=== PATIENT | female | born 1975 | race Caucasian/White ===

== ENCOUNTER 2017-08-16 12:42 | Emergency (ER) | payer OTHER, MEDICAID, SELFPAY | END 2017-08-16 15:46 | disposition home or self-care (01) | DX: J44.1 Chronic obstructive pulmonary disease with (acute) exacerbation (principal) | CPT/HCPCS: 71020; 71046; 80053; 84484; 85025; 93005; 93010; 94640; 99058; 99285 ==

== ENCOUNTER 2017-09-24 14:06 | Emergency (ER) | payer OTHER, MEDICAID, SELFPAY ==
[2017-09-24 14:24] VITALS: BP 137/87; PULSE 84; RESP 17; TEMP 36.5; O2SAT 96; BMI 23.3
--- NOTE | 2017-09-24 14:28 | DI.RAD.S_ITS ---
PROCEDURE: XR CHEST 1V INDICATIONS: chest pain TECHNIQUE: One view of the chest was acquired. COMPARISON: [facility], , CHEST 2 VIEW, 08/16/2017, 12:54. FINDINGS: Surgical changes and devices: None. Lungs and pleura: No pleural effusions or pneumothorax. Lungs are likely clear but body habitus is large and the inspiratory volume is mildly reduced. There is mild stranding across the left lung base behind the heart, somewhat poorly visualized. Mediastinum: Mediastinal contours appear normal. Heart size is normal. Bones and chest wall: No suspicious bony lesions. Overlying soft tissues appear unremarkable. IMPRESSION: Mild stranding across the heart but quality visualization is somewhat limited. Obtaining a lateral view of the chest would be helpful to determine whether mild or early pneumonia might be superimposed. Dictated by: Billy Dye M.D. on 09/24/2017 at 15:16 Approved by: Billy Dye M.D. on 09/24/2017 at 15:17
--- NOTE | 2017-09-24 14:40 | ED.SOB ---
HPI - SOB/Dyspnea General Chief Complaint: Shortness of Breath/Dyspnea Stated Complaint: SHORT OF BREATH,HANDS/FEET GOING NUMB AND PURPLE Time Seen by Provider: 09/24/17 14:40 Source: patient Mode of arrival: ambulatory Limitations: no limitations History of Present Illness Patient presents to the emergency department with a chief complaint of sharp and stabbing anterior chest pain with radiation to her back for the past few days. She states it is worse when she presses, takes a deep breath or moves. She has a chronic cough and is unaware what she was doing when her symptoms started. She denies recent travel MD Complaint: shortness of breath, cough and chest pain Onset (ago): day(s) Context: recent illness Severity: mild Consistency/Duration: constant Relieving factors: nothing Exacerbating factors: movement, coughing and inspiration Known history of: COPD Associated symptoms: chest pain, pain with inspiration and cough Treatment prior to arrival: none Related Data Home Medications Medication Instructions Recorded Confirmed albuterol sulfate [ProAir HFA] 2 puff INHALATION Q4-6H PRN 09/24/17 09/24/17 alprazolam [Xanax] 1 mg PO TID PRN 09/24/17 09/24/17 aripiprazole [Abilify] 20 mg PO DAILY 09/24/17 09/24/17 [id number]-[id number] 1 tab PO TID PRN 09/24/17 09/24/17 mometasone-formoterol [Dulera] 2 puff INHALATION BID 09/24/17 09/24/17 tiotropium bromide [Spiriva with 1 cap INHALATION DAILY 09/24/17 09/24/17 HandiHaler] Allergies Allergy/AdvReac Type Severity Reaction Status Date / Time Penicillins [PENICILLINS] Allergy Unknown Verified 09/24/17 14:24 Review of Systems Review of Systems All systems reviewed & are unremarkable except as noted in HPI and below Constitutional Denies chills, Denies fever(s), Denies lethargy and Denies weakness Eyes Denies change in vision, Denies eye discharge, Denies irritation and Denies loss of vision ENT Ears, Nose, Mouth, and Throat: Denies change in voice, Denies neck pain and Denies sore throat Cardiovascular Reports chest pain, Denies irregular heart rhythm, Denies lightheadedness, Denies palpitations, Reports dyspnea, Denies dyspnea on exertion and Denies orthopnea Respiratory Denies cough, Reports dyspnea, Denies dyspnea on exertion and Denies wheezing Gastrointestinal Gastrointestinal: Denies abdominal pain, Denies change in bowel habits, Denies diarrhea, Denies nausea and Denies vomiting Genitourinary Denies hematuria, Denies flank pain, Denies urinary incontinence and Denies urinary urgency Musculoskeletal Denies neck pain Integumentary/Breasts Denies pruritus, Denies erythema, Denies rash and Denies wounds Neurologic Denies confusion, Denies loss of vision and Denies weakness Psychiatric Denies anxiety, Denies confusion, Denies depression, Denies homicidal ideation and Denies suicidal ideation Endocrine Denies palpitations Hematologic/Lymphatic Denies easy bruising Allergic/Immunologic Denies wheezing PFSH Medical History Anxiety (Acute) COPD (chronic obstructive pulmonary disease) (Acute) Depression (Acute) Migraine (Acute) Sleep apnea (Acute) Social History Smoking Status: Current every day smoker Exam Narrative Exam Narrative: Pleasant, anxious, 42-year-old female in mild distress Initial Vital Signs Initial Vital Signs: Vital Signs Temperature 97.7 F 09/24/17 14:24 Pulse Rate 84 09/24/17 14:24 Respiratory Rate 17 09/24/17 14:24 Blood Pressure 137/87 H 09/24/17 14:24 Pulse Oximetry 96 09/24/17 14:24 Const General: cooperative and well developed Nutritional Appearance: well nourished Orientation: alert, awake, oriented x3 and not confused HENME Head: normocephalic and atraumatic Ears: external ears normal and TM's normal bilaterally Nose: external nose normal and No nasal discharge Face and sinus: sinuses nontender, face symmetric, no sinus tenderness and No dry mucous membranes Mouth: oral mucosae normal and moist mucous membranes Teeth and gingiva: dentition normal Throat: tonsils normal and uvula midline Neck Neck: normal visual inspection, trachea midline, No lymphadenopathy, No midline deformity and No JVD Lymphatic: No lymphedema Chest Chest: abnormal inspection of the chest, localized rib tenderness with anteroposterior compression and tenderness Resp Effort & Inspection: normal respiratory effort, able to speak in complete sentences, no respiratory distress and no use of accessory muscles Auscultation: clear to auscultation bilaterally, no rales, no rhonchi and no wheezes Cardio Rate: regular rate Rhythm: regular rhythm Heart Sounds: no click, no gallops, no murmurs and no rubs Pulses: normal peripheral pulses Back/Spine/Pelvis Back: No CVA tenderness Cervical Spine: cervical ROM normal and No pain with cervical ROM Thoracic/Lumbar Spine: thoracic and lumbar spine normal to inspection Skin General: no rashes or lesions noted, No jaundice and No petechiae Course Orders Ordered: ED Orders 09/24/17 14:28 XR chest 1V Stat EKG-12 Lead Stat 09/24/17 14:33 Complete Blood Count AUTO DIFF Stat Comprehensive Metabolic Panel Stat Lipase Stat Partial Thromboplastin Time Stat Prothrombin Time INR Stat Troponin with CK Cardiac Panel Stat 09/24/17 16:18 CT angio chest PE protocol Stat Discontinued Medications Albuterol/Ipratropium (Duoneb) 3 ml INH NOW ONE Stop: 09/24/17 15:38 Last Admin: 09/24/17 15:39 Dose: 3 ml Vital Signs - 8 hr 09/24/17 14:24 09/24/17 15:33 09/24/17 16:14 Temperature 97.7 F Pulse Rate 84 78 80 Respiratory Rate 17 22 20 Blood Pressure 137/87 H Blood Pressure [Right Arm] 120/78 121/70 H Pulse Oximetry 96 94 96 09/24/17 16:40 Temperature Pulse Rate 80 Respiratory Rate 16 Blood Pressure Blood Pressure [Right Arm] 130/81 H Pulse Oximetry 95 MDM - SOB/Dyspnea Differential Diagnosis Likely acute exacerbation of chronic obstructive airways disease, congestive heart failure, community acquired pneumonia, asthma with exacerbation and pulmonary embolism Medical Records Attestation: I reviewed the patient's medical records. Lab Data Result diagrams: 09/24/17 14:33 09/24/17 14:33 Lab Results 09/24/17 09/24/17 09/24/17 Range/Units 14:33 14:33 14:33 WBC 11.9 H (4.5-11.0) X10^3/uL RBC 4.68 (4.0-5.2) X10^6/uL Hgb 15.1 (12.0-16.0) g/dL Hct 43.3 (36-46) % MCV 92.5 (80-100) fL MCH 32.2 (26-34) PG MCHC 34.8 (30-36) % RDW 13.3 (11.6-14.8) % Plt Count 187 (150-400) X10^3/uL Neut % (Auto) 57.0 (50-75) % Lymph % (Auto) 33.1 (25-40) % Beckham % (Auto) 7.4 (3-14) % Eos % (Auto) 1.7 L (2-4) % Baso % (Auto) 0.8 (0-2) % Neut # (Auto) 6800 H (9069-7554) /uL PT 10.3 (10.1-12.7) SECONDS INR 0.9 (0.9-1.3) APTT 28 (26.4-36.2) SECONDS Sodium 144 (137-145) mmol/L Potassium 3.5 (3.4-5.1) mmol/L Chloride 101 (98-107) mmol/L Carbon Dioxide 32 (22-32) mmol/L BUN 12 (7-17) mg/dL Creatinine 0.70 (0.52-1.04) mg/dL Estimated GFR > 60.0 (>60) mL/min BUN/Creatinine Ratio 17.1 (6-22) Glucose 109 H (70-100) mg/dL Calcium 8.8 (8.4-10.2) mg/dL Total Bilirubin 0.3 (0.2-1.3) mg/dL AST 25 (14-36) IU/L ALT 49 (9-52) IU/L Alkaline Phosphatase 68 (38-126) U/L Total Creatine Kinase 42 (30-135) U/L Troponin I < 0.012 (0.01-0.034) ng/mL Total Protein 6.6 (6.3-8.2) g/dL Albumin 3.7 (3.5-5.0) g/dL Globulin 2.9 (1.7-4.1) g/dL Albumin/Globulin Ratio 1.3 (1.0-2.8) Lipase 49 (23-300) U/L Imaging Data CT scan - chest: Radiologist's impression: PROCEDURE: CT ANGIO CHEST PE PROTOCOL INDICATIONS: 42 year-old female with chest pain radiating to the back, and shortness of breath. TECHNIQUE: After the administration of intravenous contrast, 2 mm thick sections acquired from the pulmonary apices to the posterior costophrenic angles. 3-dimensional maximum intensity projection (MIP) coronal and sagittal reformats were then acquired through the thorax. For radiation dose reduction, the following was used: automated exposure control, adjustment of mA and/or kV according to patient size. COMPARISON: [facility], , XR CHEST 1V, 09/24/2017, 14:40. [facility], , CHEST 2 VIEW, 08/16/2017, 12:54. FINDINGS: Image quality: Excellent. Pulmonary arteries: Pulmonary arteries are normal in size, and demonstrate no intraluminal filling defects to suggest central pulmonary embolism. Lungs and pleura: Lungs are clear, except for calcified right upper lobe granuloma. No pleural effusions or pneumothorax. Central and peripheral airways are patent. Mediastinum: Heart size is normal, without pericardial effusion. No mediastinal or hilar adenopathy. Thoracic aorta is normal in caliber and enhancement. Esophagus is normal in caliber, without hiatal hernia. Bones and chest wall: No suspicious bony lesions. Ribs and thoracic spine appear intact throughout. There is a 1.2 cm inferior left thyroid lobe lesion. No axillary or supraclavicular adenopathy. Abdomen: There is diffuse fatty infiltration of the liver. Other visualized upper abdominal solid organs appear normal in the early arterial phase of enhancement. IMPRESSION: 1. No evidence for central pulmonary embolism. 2. No acute pulmonary disease. Pulmonary remote granulomatous disease. 3. Diffuse fatty infiltration of the liver. Dictated by: Butch Workman M.D. on 09/24/2017 at 16:44 Approved by: Butch Workman M.D. on 09/24/2017 at 16:52 ECG Data Attestation: I personally reviewed and interpreted this ECG as follows: Prior ECG tracings: not available for review Interpretation: EKG is normal sinus rhythm and free of any signs of ischemia or ectopy. Discharge Plan Departure Patient Disposition: Home, Self-Care Clinical Impression: Atypical chest pain Instructions: DI for Atypical Chest Pain Prescriptions: No Action alprazolam [Xanax] 1 mg tablet 1 mg PO TID PRN (Reason: Anxiety) RF: 0 albuterol sulfate [ProAir HFA] 90 mcg/actuation Hfa Aerosol Inhaler 2 puff INHALATION Q4-6H PRN (Reason: shortness of breath) RF: 0 aripiprazole [Abilify] 20 mg Tablet 20 mg PO DAILY RF: 0 tiotropium bromide [Spiriva with HandiHaler] 18 mcg Capsule, W/Inhalation Device 1 cap INHALATION DAILY RF: 0 lgidyqpfgj-oeztmobexytkw-adrl [id number] mg capsule 1 tab PO TID PRN (Reason: Migraine Headache) RF: 0 mometasone-formoterol [Dulera] 100-5 mcg/actuation Hfa Aerosol Inhaler 2 puff INHALATION BID RF: 0 Referrals: Vernell Alcantara ARNP [Primary Care Provider] -
[2017-09-24 14:45] LABS: Add Manual Diff / Slide Review NO; Basophils Percent Auto 0.8 % (0-2); Eosinophils Percent Auto 1.7 % (2-4); Hematocrit 43.3 % (36-46); Hemoglobin 15.1 g/dL (12.0-16.0); Lymphocytes Percent Auto 33.1 % (25-40); Mean Corpuscular HGB Conc 34.8 % (30-36); Mean Corpuscular Hemoglobin 32.2 PG (26-34); Mean Corpuscular Volume 92.5 fL (80-100); Monocytes Percent Auto 7.4 % (3-14); Neutrophils Absolute Auto 6800 /uL (3000-5900); Platelet Count 187 X10^3/uL (150-400); Red Blood Cell Count 4.68 X10^6/uL (4.0-5.2); Red Cell Distribution Width 13.3 % (11.6-14.8); White Blood Cell Count 11.9 X10^3/uL (4.5-11.0)
[2017-09-24 14:54] LABS: INR 0.9 (0.9-1.3); Prothrombin Time 10.3 SECONDS (10.1-12.7)
[2017-09-24 14:56] LABS: PTT Partial Thromboplastin Tim 28 SECONDS (26.4-36.2)
[2017-09-24 15:00] LABS: Alanine Aminotransferase 49 IU/L (9-52); Albumin 3.7 g/dL (3.5-5.0); Albumin Globulin Ratio 1.3 (1.0-2.8); Alkaline Phosphatase 68 U/L (38-126); Aspartate Aminotransferase 25 IU/L (14-36); BUN Creatinine Ratio 17.1 (6-22); Bilirubin Total 0.3 mg/dL (0.2-1.3); Blood Urea Nitrogen 12 mg/dL (7-17); Calcium 8.8 mg/dL (8.4-10.2); Carbon Dioxide 32 mmol/L (22-32); Chloride 101 mmol/L (98-107); Creatine Kinase 42 U/L (30-135); Estimated Glomerular Filt Rate > 60.0 mL/min (>60); Globulin 2.9 g/dL (1.7-4.1); Glucose 109 mg/dL (70-100); HEMOLYSIS < 15 (0-50); Lipase 49 U/L (23-300); Potassium 3.5 mmol/L (3.4-5.1); Sodium 144 mmol/L (137-145); Total Protein 6.6 g/dL (6.3-8.2)
[2017-09-24 15:12] LABS: Troponin I < 0.012 ng/mL (0.01-0.034)
[2017-09-24 15:33] VITALS: BP 120/78; PULSE 78; RESP 22; O2SAT 94
[2017-09-24] MEDS: ALBUTEROL/IPRATROPIUM 3 ML AMPUL INH (15:39)
--- NOTE | 2017-09-24 16:12 | PC.NURSE ---
Assumed care of pt. Finished 1st neb tx, noticed faint exp wheezing to anterior chest and decreased and faint crackles to lower posterior lobes. Pt reports L side chest pain feels as kicked in the chest and reproduceable. Pt c/o tingling/numbness in fingertips and bluish color. Pt uses O2 by NC 2-[address] Nance at bedside assessing pt.
[2017-09-24 16:14] VITALS: BP 121/70; PULSE 80; RESP 20; O2SAT 96
--- NOTE | 2017-09-24 16:18 | DI.CT.S_ITS ---
PROCEDURE: CT ANGIO CHEST PE PROTOCOL INDICATIONS: 42 year-old female with chest pain radiating to the back, and shortness of breath. TECHNIQUE: After the administration of intravenous contrast, 2 mm thick sections acquired from the pulmonary apices to the posterior costophrenic angles. 3-dimensional maximum intensity projection (MIP) coronal and sagittal reformats were then acquired through the thorax. For radiation dose reduction, the following was used: automated exposure control, adjustment of mA and/or kV according to patient size. COMPARISON: [facility], , XR CHEST 1V, 09/24/2017, 14:40. [facility], , CHEST 2 VIEW, 08/16/2017, 12:54. FINDINGS: Image quality: Excellent. Pulmonary arteries: Pulmonary arteries are normal in size, and demonstrate no intraluminal filling defects to suggest central pulmonary embolism. Lungs and pleura: Lungs are clear, except for calcified right upper lobe granuloma. No pleural effusions or pneumothorax. Central and peripheral airways are patent. Mediastinum: Heart size is normal, without pericardial effusion. No mediastinal or hilar adenopathy. Thoracic aorta is normal in caliber and enhancement. Esophagus is normal in caliber, without hiatal hernia. Bones and chest wall: No suspicious bony lesions. Ribs and thoracic spine appear intact throughout. There is a 1.2 cm inferior left thyroid lobe lesion. No axillary or supraclavicular adenopathy. Abdomen: There is diffuse fatty infiltration of the liver. Other visualized upper abdominal solid organs appear normal in the early arterial phase of enhancement. IMPRESSION: 1. No evidence for central pulmonary embolism. 2. No acute pulmonary disease. Pulmonary remote granulomatous disease. 3. Diffuse fatty infiltration of the liver. Dictated by: Butch Workman M.D. on 09/24/2017 at 16:44 Approved by: Butch Workman M.D. on 09/24/2017 at 16:52
[2017-09-24 16:40] VITALS: BP 130/81; PULSE 80; RESP 16; O2SAT 95
[2017-09-24 17:30] VITALS: BP 144/87; PULSE 79; RESP 15; O2SAT 94
[2017-09-24 18:31] VITALS: BP 144/87; PULSE 82; RESP 18; O2SAT 93
== END 2017-09-24 18:25 | disposition home or self-care (01) ==
PROVIDERS: Emergency Provider Emergency Medicine; PCP Nurse Practitioner Family
DX: R07.89 Other chest pain (principal)
CPT/HCPCS: 36591; 71045; 71275; 80053; 82550; 82553; 83690; 84484; 85025; 85610; 85730; 93005; 99284; 99285; Q9967

== ENCOUNTER 2018-06-14 12:13 | Emergency (ER) | payer OTHER, MEDICAID, SELFPAY ==
[2018-06-14 12:28] VITALS: BP 141/94; PULSE 95; RESP 18; TEMP 36.2; O2SAT 95
--- NOTE | 2018-06-14 12:48 | PC.NURSE ---
Pt in sisters ED room (arrived together w/ same complaint, sister more ill, pt wanted to stay with her rather than waiting room). Sitting in chair, coughing and then went to floor w/o injury. Sat 96%, HR 90%, RR 18. Pt moved to [place] as sister was very upset. Pt denies all complaints.
[2018-06-14 12:49] VITALS: PULSE 90; RESP 18; O2SAT 96
== END 2018-06-14 13:37 | disposition left against medical advice (07) ==
PROVIDERS: Emergency Provider Nurse Practitioner Family; PCP Nurse Practitioner Family
DX: R05 Cough (principal)
CPT/HCPCS: 99281

== ENCOUNTER 2018-09-13 16:21 | Emergency (ER) | payer OTHER, MEDICAID, SELFPAY ==
[2018-09-13 16:26] VITALS: BP 154/105; PULSE 89; RESP 26; TEMP 36.6; O2SAT 95; BMI 42.9
--- NOTE | 2018-09-13 19:14 | DI.RAD.S_ITS ---
PROCEDURE: XR CHEST 2V INDICATIONS: SOB, Wheezing, TECHNIQUE: 2 views of the chest were acquired. COMPARISON: [facility], , XR CHEST 1V, 09/24/2017, 14:40. FINDINGS: Surgical changes and devices: None. Lungs and pleura: Lungs are clear. No pleural effusions or pneumothorax. Mediastinum: Mediastinal contours are normal. Heart size is normal. Bones and chest wall: No suspicious bony abnormalities. Soft tissues appear unremarkable. IMPRESSION: No acute process. Dictated by: Carl Suh M.D. on 09/13/2018 at 19:50 Approved by: Carl Suh M.D. on 09/13/2018 at 19:50
--- NOTE | 2018-09-13 19:16 | ED.URI ---
HPI - URI/Sore Throat <Ayana JamesMINI davis - Last Filed: 09/13/18 22:44> General Chief Complaint: Upper Respiratory Symptoms Stated Complaint: COUGH SOB Time Seen by Provider: 09/13/18 18:58 Source: patient Mode of arrival: ambulatory Limitations: no limitations History of Present Illness HPI Narrative: 43-year-old female with a history of COPD, complains of URI for 1 week, with a productive cough for the past 3 days. Associated chills, low-grade fever at home with the highest T 99.0?, sinus pressure, and chest congestion that is worse with coughing. States she coughs up a small amount of productive green sputum and has been using her nebulizer treatments every 4 hours at home for which she gets some relief but not long-lasting relief. Denies sore throat, ear pain, rhinorrhea, chest pain, nausea, vomiting, or diarrhea. Her sister is sick as well. Related Data Home Medications Medication Instructions Recorded Confirmed albuterol sulfate [ProAir HFA] 2 puff INHALATION Q4-6H PRN 09/24/17 09/13/18 alprazolam [Xanax] 1 mg PO TID PRN 09/24/17 09/13/18 aripiprazole [Abilify] 20 mg PO DAILY 09/24/17 09/24/17 ahyisgwonf-oqnliobseqbnl-rvsc 1 tab PO Q4H PRN 09/24/17 09/13/18 mometasone-formoterol [Dulera] 2 puff INHALATION BID 09/24/17 09/13/18 tiotropium bromide [Spiriva with 1 cap INHALATION DAILY 09/24/17 09/24/17 HandiHaler] amitriptyline 25 mg PO DAILY 06/14/18 09/13/18 prednisone 06/14/18 esomeprazole magnesium 20 mg PO DAILY 09/13/18 09/13/18 ipratropium-albuterol 3 ml INHALATION DIRECTED 09/13/18 09/13/18 loratadine 10 mg PO DAILY 09/13/18 09/13/18 olanzapine 09/13/18 venlafaxine 150 mg PO DAILY 09/13/18 09/13/18 Previous Rx's Medication Instructions Recorded azithromycin See Rx Instructions .ROUTE 09/13/18 .COMPLEX #6 tab prednisone 50 mg PO DAILY #7 tab 09/13/18 Allergies Allergy/AdvReac Type Severity Reaction Status Date / Time Penicillins [PENICILLINS] Allergy Unknown Verified 06/14/18 12:31 Review of Systems <MINI Rueda - Last Filed: 09/13/18 22:44> Constitutional Reports fatigue and Reports other (low-grade fevers at home. ) Eyes Denies blurry vision ENT Ears, Nose, Mouth, and Throat: Denies dizziness, Denies ear discharge, Denies otalgia, Reports nasal congestion and Denies nasal discharge Cardiovascular Denies chest pain and Reports dyspnea on exertion Respiratory Reports chest congestion, Reports cough, Reports dyspnea on exertion, Denies stridor and Reports wheezing Gastrointestinal Gastrointestinal: Denies diarrhea, Denies nausea and Denies vomiting Musculoskeletal Reports system reviewed and no additional complaints, except as docu and Denies back pain Integumentary/Breasts Denies wounds and Denies jaundice Neurologic Denies confusion and Denies dizziness Psychiatric Denies confusion Endocrine Reports fatigue Allergic/Immunologic Reports wheezing PFSH <MINI Rueda - Last Filed: 09/13/18 22:44> Medical History Anxiety (Acute) COPD (chronic obstructive pulmonary disease) (Acute) Depression (Acute) Migraine (Acute) Sleep apnea (Acute) Social History Smoking Status: Current every day smoker Social History Smoking Status: Current every day smoker Exam <MINI Rueda - Last Filed: 09/13/18 22:44> Initial Vital Signs Initial Vital Signs: Vital Signs Temperature 97.9 F 09/13/18 16:26 Pulse Rate 89 09/13/18 16:26 Respiratory Rate 26 H 09/13/18 16:26 Blood Pressure 154/105 H 09/13/18 16:26 Pulse Oximetry 95 09/13/18 16:26 Const General: cooperative and well developed Nutritional Appearance: well nourished Orientation: alert, awake, oriented x3 and not confused [facility] Head: normocephalic and atraumatic Ears: external ears normal Nose: external nose normal and No nasal discharge Face and sinus: sinuses nontender, face symmetric, no sinus tenderness and No dry mucous membranes Mouth: moist mucous membranes and oral mucosa abnormal (Slight erythema in postoropharynx ) Teeth and gingiva: dentition normal Throat: tonsils normal and uvula midline Eyes General: appearance normal, both eyes and all related structures Eyelids: eyelids normal Conjunctivae: conjunctivae normal Sclera: sclerae normal Pupils: PERRL Neck Neck: normal visual inspection, trachea midline, No lymphadenopathy, No midline deformity and No JVD Lymphatic: lymphadenopathy (Submandibular ) Chest Chest: normal inspection of the chest Resp Effort & Inspection: normal respiratory effort, able to speak in complete sentences, cough (Dry prolonged cough) Quality of cough: actively coughing, no respiratory distress and no use of accessory muscles Auscultation: clear to auscultation bilaterally, bronchial breath sounds, no crackles, diminished lung sounds (Lower lobes that improved dramtically with a duoneb. ) bilaterally, no rales, no rhonchi and wheezes right lower Cardio Rate: regular rate Rhythm: regular rhythm Heart Sounds: no click, no gallops, no murmurs and no rubs Pulses: normal peripheral pulses GI Inspection: non-distended Palpation: soft, no hepatosplenomegaly, No guarding, No pulsatile mass and No tender Auscultation: normal bowel sounds Back/Spine/Pelvis Back: No CVA tenderness Cervical Spine: No pain with cervical ROM Skin General: no rashes or lesions noted, No jaundice and No petechiae Neuro General: alert, oriented x3, gait normal and no focal motor deficits Speech: speech normal Extrem General: full ROM, no clubbing, cyanosis or edema, no pedal edema and no calf tenderness Psych Appearance: well kempt Mental Status: mental status grossly normal Attitude: cooperative Thought Content: normal and suicidality Judgment: judgment good <Giuliana Strong, DO - Last Filed: 09/13/18 19:29> Initial Vital Signs Initial Vital Signs: Vital Signs Temperature 97.9 F 09/13/18 16:26 Pulse Rate 89 09/13/18 16:26 Respiratory Rate 26 H 09/13/18 16:26 Blood Pressure 154/105 H 09/13/18 16:26 Pulse Oximetry 95 09/13/18 16:26 <Octavio Nance DO - Last Filed: 09/14/18 02:37> Initial Vital Signs Initial Vital Signs: Vital Signs Temperature 97.9 F 09/13/18 16:26 Pulse Rate 89 09/13/18 16:26 Respiratory Rate 26 H 09/13/18 16:26 Blood Pressure 154/105 H 09/13/18 16:26 Pulse Oximetry 95 09/13/18 16:26 Scores <MINI Rueda - Last Filed: 09/13/18 22:44> CURB-65 Confusion: No BUN >19mg/dL (>7mmol/L): No Respiratory rate greater or equal to 30: No SBP <90mmHg or DBP less or equal to 60mmHg: No Age 65 or Older: No CURB-65 Total: 0 Score 0-1 Outpatient care, Score 2 Inpt vs. Obs, Score 3 or over Inpt admit with ICU for score of 4-5 Course <MINI Rueda - Last Filed: 09/13/18 22:44> Orders Ordered: ED Orders 09/13/18 19:14 XR chest 2V Stat 09/13/18 19:30 Influenza A and B by PCR Rapid Stat Discontinued Medications Albuterol (Ventolin) 2.5 mg INH NOW ONE Stop: 09/13/18 20:13 Last Admin: 09/13/18 20:12 Dose: 2.5 mg Albuterol/Ipratropium (Duoneb) 3 ml INH NOW ONE Stop: 09/13/18 19:15 Last Admin: 09/13/18 19:24 Dose: 3 ml Reevaluation(s) Reevaluation #1: Increased air flow, and decreased coughing, decreased wheezing. Patient states the she is less short of breath. Time: 20:30 Consultations Consultation #1: Consulted with Dr. Nance about plan of care. Time: 20:00 Vital Signs - 8 hr 09/13/18 19:24 09/13/18 20:09 09/13/18 20:13 Pulse Rate 82 91 H 78 Respiratory Rate 14 24 14 Blood Pressure Blood Pressure [Right Wrist] 139/83 Pulse Oximetry 97 90 L 98 09/13/18 20:51 Pulse Rate 95 H Respiratory Rate 20 Blood Pressure 136/82 Blood Pressure [Right Wrist] Pulse Oximetry 98 <Giuliana Strong DO - Last Filed: 09/13/18 19:29> Orders Ordered: ED Orders 09/13/18 19:14 XR chest 2V Stat 09/13/18 19:30 Influenza A and B by PCR Rapid Stat Discontinued Medications Albuterol (Ventolin) 2.5 mg INH NOW ONE Stop: 09/13/18 20:13 Last Admin: 09/13/18 20:12 Dose: 2.5 mg Albuterol/Ipratropium (Duoneb) 3 ml INH NOW ONE Stop: 09/13/18 19:15 Last Admin: 09/13/18 19:24 Dose: 3 ml Vital Signs - 8 hr 09/13/18 19:24 09/13/18 20:09 09/13/18 20:13 Pulse Rate 82 91 H 78 Respiratory Rate 14 24 14 Blood Pressure Blood Pressure [Right Wrist] 139/83 Pulse Oximetry 97 90 L 98 09/13/18 20:51 Pulse Rate 95 H Respiratory Rate 20 Blood Pressure 136/82 Blood Pressure [Right Wrist] Pulse Oximetry 98 <Octavio Nance DO - Last Filed: 09/14/18 02:37> Orders Ordered: ED Orders 09/13/18 19:14 XR chest 2V Stat 09/13/18 19:30 Influenza A and B by PCR Rapid Stat Discontinued Medications Albuterol (Ventolin) 2.5 mg INH NOW ONE Stop: 09/13/18 20:13 Last Admin: 09/13/18 20:12 Dose: 2.5 mg Albuterol/Ipratropium (Duoneb) 3 ml INH NOW ONE Stop: 09/13/18 19:15 Last Admin: 09/13/18 19:24 Dose: 3 ml Vital Signs - 8 hr 09/13/18 19:24 09/13/18 20:09 09/13/18 20:13 Pulse Rate 82 91 H 78 Respiratory Rate 14 24 14 Blood Pressure Blood Pressure [Right Wrist] 139/83 Pulse Oximetry 97 90 L 98 09/13/18 20:51 Pulse Rate 95 H Respiratory Rate 20 Blood Pressure 136/82 Blood Pressure [Right Wrist] Pulse Oximetry 98 MDM - URI/Sore Throat <MINI Rueda - Last Filed: 09/13/18 22:44> Differential Diagnosis Differential diagnosis: Likely upper respiratory infection, viral infection, bronchitis and other Medical Records Attestation: I reviewed the patient's medical records. Lab Data Attestation: I reviewed the patient's lab results. Lab Results 09/13/18 Range/Units 19:30 Influenza A & B (PCR) Negative (Negative) Imaging Data Chest x-ray: Radiologist's impression: [address] [address] XRay Report Signed Patient: Alyse Martin RMR#: [id number] : 1975Acct:[id number] Age/Sex: 43 / FDate of Service: 09/13/18 Loc: ED Accession Number: [id number] Procedure: XR chest 2V Ordering Provider: Ayana Robertson PROCEDURE: XR CHEST 2V INDICATIONS: SOB, Wheezing, TECHNIQUE: 2 views of the chest were acquired. COMPARISON: [facility], CR, XR CHEST 1V, 09/24/2017, 14:40. FINDINGS: Surgical changes and devices: None. Lungs and pleura: Lungs are clear. No pleural effusions or pneumothorax. Mediastinum: Mediastinal contours are normal. Heart size is normal. Bones and chest wall: No suspicious bony abnormalities. Soft tissues appear unremarkable. IMPRESSION: No acute process. Dictated by: Carl Suh M.D. on 09/13/2018 at 19:50 Approved by: Carl Suh M.D. on 09/13/2018 at 19:50 MDM Narrative Medical decision making narrative: I suspect typical pneumonia due to increased risk with COPD, length of illness, report of fever, increased wheezing isolated to one lobe, and negative chest x-ray. Concurrent COPD exacerbation due to wheezing, dyspnea, cough. Less likely influenza due to negative lab results. Differential also includes viral pneumonia or bronchitis however coverage for atypical pneumonia was given TT patient's comorbidities. Strict return precautions. Discussed importance of follow-up with primary care provider this week for re-evaluation. Discussed continued use of nebulized treatments every 4 hours as needed. <Giuliana Strong, DO - Last Filed: 09/13/18 19:29> Lab Data Lab Results 09/13/18 Range/Units 19:30 Influenza A & B (PCR) Negative (Negative) ECG Data Attestation: I personally reviewed and interpreted this ECG as follows: Interpretation: Sinus rhythm rate of 98 P are 170 QRS 85 QTC of 392. No ST elevation depression appreciated. <Octavio Nance DO - Last Filed: 09/14/18 02:37> Lab Data Lab Results 09/13/18 Range/Units 19:30 Influenza A & B (PCR) Negative (Negative) Discharge Plan Departure Patient Disposition: Home Clinical Impression: Atypical pneumonia, Asthma exacerbation in COPD Discharge Date/Time: 09/13/18 20:54 Interventions: ED Discharge Assessment Last Done: 09/13/18 20:51 Instructions: Atypical Pneumonia, DI for Chronic Obstructive Pulmonary Disease Activity Restrictions/Additional Instructions: X-rays were negative, but I am concerned for an atypical pneumonia so I prescribed you antibiotics. Have also prescribed a prednisone for years COPD. Please follow-up with your primary care provider this week for a recheck. If you develop symptoms like syncope, increasing chest pain, or worsening shortness of breath that does not improve with inhalers, please return to the emergency department. Prescriptions: New azithromycin 250 mg tablet See Rx Instructions .ROUTE .COMPLEX Qty: 6 RF: 0 prednisone 50 mg tablet 50 mg PO DAILY Qty: 7 RF: 0 No Action alprazolam [Xanax] 1 mg tablet 1 mg PO TID PRN (Reason: Anxiety) RF: 0 albuterol sulfate [ProAir HFA] 90 mcg/actuation Hfa Aerosol Inhaler 2 puff INHALATION Q4-6H PRN (Reason: shortness of breath) RF: 0 aripiprazole [Abilify] 20 mg Tablet 20 mg PO DAILY RF: 0 tiotropium bromide [Spiriva with HandiHaler] 18 mcg Capsule, W/Inhalation Device 1 cap INHALATION DAILY RF: 0 axmjzgwfec-dqeilmtufdmwj-diol 50-300-40 mg capsule 1 tab PO Q4H PRN (Reason: Migraine Headache) RF: 0 Dulera 100-5 mcg/actuation Hfa Aerosol Inhaler 2 puff INHALATION BID RF: 0 prednisone 20 mg tablet RF: 0 amitriptyline 25 mg tablet 25 mg PO DAILY RF: 0 ipratropium-albuterol 0.5 mg-3 mg(2.5 mg base)/3 mL solution for nebulization 3 ml Inhalation DIRECTED RF: 0 venlafaxine 150 mg capsule,extended release 24hr 150 mg PO DAILY RF: 0 olanzapine 10 mg tablet RF: 0 loratadine 10 mg tablet 10 mg PO DAILY RF: 0 esomeprazole magnesium 20 mg capsule,delayed release(DR/EC) 20 mg PO DAILY RF: 0 Referrals: Alcantara,Vernell, [employer] [Primary Care Provider] - <Octavio Nance DO - Last Filed: 09/14/18 02:37> Cosign ED Attending Sethature Attestation: I was immediately available in the department for consultation. Documentation has been reviewed. I agree with assessment and plan.
--- NOTE | 2018-09-13 19:20 | ED_ITS ---
HPI - URI/Sore Throat <Ayana JamesMINI davis - Last Filed: 09/13/18 22:44> General Chief Complaint: Upper Respiratory Symptoms Stated Complaint: COUGH SOB Time Seen by Provider: 09/13/18 18:58 Source: patient Mode of arrival: ambulatory Limitations: no limitations History of Present Illness HPI Narrative: 43-year-old female with a history of COPD, complains of URI for 1 week, with a productive cough for the past 3 days. Associated chills, low-grade fever at home with the highest T 99.0?, sinus pressure, and chest congestion that is worse with coughing. States she coughs up a small amount of productive green sputum and has been using her nebulizer treatments every 4 hours at home for which she gets some relief but not long-lasting relief. Denies sore throat, ear pain, rhinorrhea, chest pain, nausea, vomiting, or diarrhea. Her sister is sick as well. Related Data Home Medications Medication Instructions Recorded Confirmed albuterol sulfate [ProAir HFA] 2 puff INHALATION Q4-6H PRN 09/24/17 09/13/18 alprazolam [Xanax] 1 mg PO TID PRN 09/24/17 09/13/18 aripiprazole [Abilify] 20 mg PO DAILY 09/24/17 09/24/17 [id number]-bmcyvhvwxsjrb-cjmf 1 tab PO Q4H PRN 09/24/17 09/13/18 mometasone-formoterol [Dulera] 2 puff INHALATION BID 09/24/17 09/13/18 tiotropium bromide [Spiriva with 1 cap INHALATION DAILY 09/24/17 09/24/17 HandiHaler] amitriptyline 25 mg PO DAILY 06/14/18 09/13/18 prednisone 06/14/18 esomeprazole magnesium 20 mg PO DAILY 09/13/18 09/13/18 ipratropium-albuterol 3 ml INHALATION DIRECTED 09/13/18 09/13/18 loratadine 10 mg PO DAILY 09/13/18 09/13/18 olanzapine 09/13/18 venlafaxine 150 mg PO DAILY 09/13/18 09/13/18 Previous Rx's Medication Instructions Recorded azithromycin See Rx Instructions .ROUTE 09/13/18 .COMPLEX #6 tab prednisone 50 mg PO DAILY #7 tab 09/13/18 Allergies Allergy/AdvReac Type Severity Reaction Status Date / Time Penicillins [PENICILLINS] Allergy Unknown Verified 06/14/18 12:31 Review of Systems <MINI Rueda - Last Filed: 09/13/18 22:44> Constitutional Reports fatigue and Reports other (low-grade fevers at home. ) Eyes Denies blurry vision ENT Ears, Nose, Mouth, and Throat: Denies dizziness, Denies ear discharge, Denies otalgia, Reports nasal congestion and Denies nasal discharge Cardiovascular Denies chest pain and Reports dyspnea on exertion Respiratory Reports chest congestion, Reports cough, Reports dyspnea on exertion, Denies stridor and Reports wheezing Gastrointestinal Gastrointestinal: Denies diarrhea, Denies nausea and Denies vomiting Musculoskeletal Reports system reviewed and no additional complaints, except as docu and Denies back pain Integumentary/Breasts Denies wounds and Denies jaundice Neurologic Denies confusion and Denies dizziness Psychiatric Denies confusion Endocrine Reports fatigue Allergic/Immunologic Reports wheezing PFSH <MINI Rueda - Last Filed: 09/13/18 22:44> Medical History Anxiety (Acute) COPD (chronic obstructive pulmonary disease) (Acute) Depression (Acute) Migraine (Acute) Sleep apnea (Acute) Social History Smoking Status: Current every day smoker Social History Smoking Status: Current every day smoker Exam <MINI Rueda - Last Filed: 09/13/18 22:44> Initial Vital Signs Initial Vital Signs: Vital Signs Temperature 97.9 F 09/13/18 16:26 Pulse Rate 89 09/13/18 16:26 Respiratory Rate 26 H 09/13/18 16:26 Blood Pressure 154/105 H 09/13/18 16:26 Pulse Oximetry 95 09/13/18 16:26 Const General: cooperative and well developed Nutritional Appearance: well nourished Orientation: alert, awake, oriented x3 and not confused [facility] Head: normocephalic and atraumatic Ears: external ears normal Nose: external nose normal and No nasal discharge Face and sinus: sinuses nontender, face symmetric, no sinus tenderness and No dry mucous membranes Mouth: moist mucous membranes and oral mucosa abnormal (Slight erythema in postoropharynx ) Teeth and gingiva: dentition normal Throat: tonsils normal and uvula midline Eyes General: appearance normal, both eyes and all related structures Eyelids: eyelids normal Conjunctivae: conjunctivae normal Sclera: sclerae normal Pupils: PERRL Neck Neck: normal visual inspection, trachea midline, No lymphadenopathy, No midline deformity and No JVD Lymphatic: lymphadenopathy (Submandibular ) Chest Chest: normal inspection of the chest Resp Effort & Inspection: normal respiratory effort, able to speak in complete sentences, cough (Dry prolonged cough) Quality of cough: actively coughing, no respiratory distress and no use of accessory muscles Auscultation: clear to auscultation bilaterally, bronchial breath sounds, no crackles, diminished lung sounds (Lower lobes that improved dramtically with a duoneb. ) bilaterally, no rales, no rhonchi and wheezes right lower Cardio Rate: regular rate Rhythm: regular rhythm Heart Sounds: no click, no gallops, no murmurs and no rubs Pulses: normal peripheral pulses GI Inspection: non-distended Palpation: soft, no hepatosplenomegaly, No guarding, No pulsatile mass and No tender Auscultation: normal bowel sounds Back/Spine/Pelvis Back: No CVA tenderness Cervical Spine: No pain with cervical ROM Skin General: no rashes or lesions noted, No jaundice and No petechiae Neuro General: alert, oriented x3, gait normal and no focal motor deficits Speech: speech normal Extrem General: full ROM, no clubbing, cyanosis or edema, no pedal edema and no calf tenderness Psych Appearance: well kempt Mental Status: mental status grossly normal Attitude: cooperative Thought Content: normal and suicidality Judgment: judgment good <Giuliana Strong, DO - Last Filed: 09/13/18 19:29> Initial Vital Signs Initial Vital Signs: Vital Signs Temperature 97.9 F 09/13/18 16:26 Pulse Rate 89 09/13/18 16:26 Respiratory Rate 26 H 09/13/18 16:26 Blood Pressure 154/105 H 09/13/18 16:26 Pulse Oximetry 95 09/13/18 16:26 <Octavio Nance DO - Last Filed: 09/14/18 02:37> Initial Vital Signs Initial Vital Signs: Vital Signs Temperature 97.9 F 09/13/18 16:26 Pulse Rate 89 09/13/18 16:26 Respiratory Rate 26 H 09/13/18 16:26 Blood Pressure 154/105 H 09/13/18 16:26 Pulse Oximetry 95 09/13/18 16:26 Scores <MINI Rueda - Last Filed: 09/13/18 22:44> CURB-65 Confusion: No BUN >19mg/dL (>7mmol/L): No Respiratory rate greater or equal to 30: No SBP <90mmHg or DBP less or equal to 60mmHg: No Age 65 or Older: No CURB-65 Total: 0 Score 0-1 Outpatient care, Score 2 Inpt vs. Obs, Score 3 or over Inpt admit with ICU for score of 4-5 Course <MINI Rueda - Last Filed: 09/13/18 22:44> Orders Ordered: ED Orders 09/13/18 19:14 XR chest 2V Stat 09/13/18 19:30 Influenza A and B by PCR Rapid Stat Discontinued Medications Albuterol (Ventolin) 2.5 mg INH NOW ONE Stop: 09/13/18 20:13 Last Admin: 09/13/18 20:12 Dose: 2.5 mg Albuterol/Ipratropium (Duoneb) 3 ml INH NOW ONE Stop: 09/13/18 19:15 Last Admin: 09/13/18 19:24 Dose: 3 ml Reevaluation(s) Reevaluation #1: Increased air flow, and decreased coughing, decreased wheezing. Patient states the she is less short of breath. Time: 20:30 Consultations Consultation #1: Consulted with Dr. Nance about plan of care. Time: 20:00 Vital Signs - 8 hr 09/13/18 19:24 09/13/18 20:09 09/13/18 20:13 Pulse Rate 82 91 H 78 Respiratory Rate 14 24 14 Blood Pressure Blood Pressure [Right Wrist] 139/83 Pulse Oximetry 97 90 L 98 09/13/18 20:51 Pulse Rate 95 H Respiratory Rate 20 Blood Pressure 136/82 Blood Pressure [Right Wrist] Pulse Oximetry 98 <Giuliana Strong DO - Last Filed: 09/13/18 19:29> Orders Ordered: ED Orders 09/13/18 19:14 XR chest 2V Stat 09/13/18 19:30 Influenza A and B by PCR Rapid Stat Discontinued Medications Albuterol (Ventolin) 2.5 mg INH NOW ONE Stop: 09/13/18 20:13 Last Admin: 09/13/18 20:12 Dose: 2.5 mg Albuterol/Ipratropium (Duoneb) 3 ml INH NOW ONE Stop: 09/13/18 19:15 Last Admin: 09/13/18 19:24 Dose: 3 ml Vital Signs - 8 hr 09/13/18 19:24 09/13/18 20:09 09/13/18 20:13 Pulse Rate 82 91 H 78 Respiratory Rate 14 24 14 Blood Pressure Blood Pressure [Right Wrist] 139/83 Pulse Oximetry 97 90 L 98 09/13/18 20:51 Pulse Rate 95 H Respiratory Rate 20 Blood Pressure 136/82 Blood Pressure [Right Wrist] Pulse Oximetry 98 <Octavio Nance DO - Last Filed: 09/14/18 02:37> Orders Ordered: ED Orders 09/13/18 19:14 XR chest 2V Stat 09/13/18 19:30 Influenza A and B by PCR Rapid Stat Discontinued Medications Albuterol (Ventolin) 2.5 mg INH NOW ONE Stop: 09/13/18 20:13 Last Admin: 09/13/18 20:12 Dose: 2.5 mg Albuterol/Ipratropium (Duoneb) 3 ml INH NOW ONE Stop: 09/13/18 19:15 Last Admin: 09/13/18 19:24 Dose: 3 ml Vital Signs - 8 hr 09/13/18 19:24 09/13/18 20:09 09/13/18 20:13 Pulse Rate 82 91 H 78 Respiratory Rate 14 24 14 Blood Pressure Blood Pressure [Right Wrist] 139/83 Pulse Oximetry 97 90 L 98 09/13/18 20:51 Pulse Rate 95 H Respiratory Rate 20 Blood Pressure 136/82 Blood Pressure [Right Wrist] Pulse Oximetry 98 MDM - URI/Sore Throat <MINI Rueda - Last Filed: 09/13/18 22:44> Differential Diagnosis Differential diagnosis: Likely upper respiratory infection, viral infection, bronchitis and other Medical Records Attestation: I reviewed the patient's medical records. Lab Data Attestation: I reviewed the patient's lab results. Lab Results 09/13/18 Range/Units 19:30 Influenza A & B (PCR) Negative (Negative) Imaging Data Chest x-ray: Radiologist's impression: [address] [address] XRay Report Signed Patient: Alyse Martin RMR#: [id number] : 1975Acct:[id number] Age/Sex: 43 / FDate of Service: 09/13/18 Loc: ED Accession Number: [id number] Procedure: XR chest 2V Ordering Provider: Ayana Robertson PROCEDURE: XR CHEST 2V INDICATIONS: SOB, Wheezing, TECHNIQUE: 2 views of the chest were acquired. COMPARISON: [facility], CR, XR CHEST 1V, 09/24/2017, 14:40. FINDINGS: Surgical changes and devices: None. Lungs and pleura: Lungs are clear. No pleural effusions or pneumothorax. Mediastinum: Mediastinal contours are normal. Heart size is normal. Bones and chest wall: No suspicious bony abnormalities. Soft tissues appear unremarkable. IMPRESSION: No acute process. Dictated by: Carl Suh M.D. on 09/13/2018 at 19:50 Approved by: Carl Suh M.D. on 09/13/2018 at 19:50 MDM Narrative Medical decision making narrative: I suspect typical pneumonia due to increased risk with COPD, length of illness, report of fever, increased wheezing isolated to one lobe, and negative chest x-ray. Concurrent COPD exacerbation due to wheezing, dyspnea, cough. Less likely influenza due to negative lab results. Differential also includes viral pneumonia or bronchitis however coverage for atypical pneumonia was given TT patient's comorbidities. Strict return precautions. Discussed importance of follow-up with primary care provider this week for re-evaluation. Discussed continued use of nebulized treatments every 4 hours as needed. <Giuliana tSrong, DO - Last Filed: 09/13/18 19:29> Lab Data Lab Results 09/13/18 Range/Units 19:30 Influenza A & B (PCR) Negative (Negative) ECG Data Attestation: I personally reviewed and interpreted this ECG as follows: Interpretation: Sinus rhythm rate of 98 P are 170 QRS 85 QTC of 392. No ST elevation depression appreciated. <Octavio Nance DO - Last Filed: 09/14/18 02:37> Lab Data Lab Results 09/13/18 Range/Units 19:30 Influenza A & B (PCR) Negative (Negative) Discharge Plan Departure Patient Disposition: Home Clinical Impression: Atypical pneumonia, Asthma exacerbation in COPD Discharge Date/Time: 09/13/18 20:54 Interventions: ED Discharge Assessment Last Done: 09/13/18 20:51 Instructions: Atypical Pneumonia, DI for Chronic Obstructive Pulmonary Disease Activity Restrictions/Additional Instructions: X-rays were negative, but I am concerned for an atypical pneumonia so I prescribed you antibiotics. Have also prescribed a prednisone for years COPD. Please follow-up with your primary care provider this week for a recheck. If you develop symptoms like syncope, increasing chest pain, or worsening shortness of breath that does not improve with inhalers, please return to the emergency department. Prescriptions: New azithromycin 250 mg tablet See Rx Instructions .ROUTE .COMPLEX Qty: 6 RF: 0 prednisone 50 mg tablet 50 mg PO DAILY Qty: 7 RF: 0 No Action alprazolam [Xanax] 1 mg tablet 1 mg PO TID PRN (Reason: Anxiety) RF: 0 albuterol sulfate [ProAir HFA] 90 mcg/actuation Hfa Aerosol Inhaler 2 puff INHALATION Q4-6H PRN (Reason: shortness of breath) RF: 0 aripiprazole [Abilify] 20 mg Tablet 20 mg PO DAILY RF: 0 tiotropium bromide [Spiriva with HandiHaler] 18 mcg Capsule, W/Inhalation Device 1 cap INHALATION DAILY RF: 0 wyxxpjxvfe-flcwfaijwmlyr-fpog 50-300-40 mg capsule 1 tab PO Q4H PRN (Reason: Migraine Headache) RF: 0 Dulera 100-5 mcg/actuation Hfa Aerosol Inhaler 2 puff INHALATION BID RF: 0 prednisone 20 mg tablet RF: 0 amitriptyline 25 mg tablet 25 mg PO DAILY RF: 0 ipratropium-albuterol 0.5 mg-3 mg(2.5 mg base)/3 mL solution for nebulization 3 ml Inhalation DIRECTED RF: 0 venlafaxine 150 mg capsule,extended release 24hr 150 mg PO DAILY RF: 0 olanzapine 10 mg tablet RF: 0 loratadine 10 mg tablet 10 mg PO DAILY RF: 0 esomeprazole magnesium 20 mg capsule,delayed release(DR/EC) 20 mg PO DAILY RF: 0 Referrals: Alcantara,Vernell, BACTERIOLOGY TECHNICIAN [Primary Care Provider] - <Octavio Nance DO - Last Filed: 09/14/18 02:37> Cosign ED Attending Sethature Attestation: I was immediately available in the department for consultation. Documentation has been reviewed. I agree with assessment and plan.
[2018-09-13 19:24] VITALS: PULSE 82; RESP 14; O2SAT 97
[2018-09-13] MEDS: ALBUTEROL/IPRATROPIUM 3 ML AMPUL INH (19:24)
[2018-09-13 19:54] LABS: Influenza A and B by PCR Rapid Negative (Negative)
[2018-09-13 20:09] VITALS: BP 139/83; PULSE 91; RESP 24; O2SAT 90
[2018-09-13] MEDS: ALBUTEROL 2.5 MG/3 ML NEB (ADULT) INH (20:12)
[2018-09-13 20:13] VITALS: PULSE 78; RESP 14; O2SAT 98
[2018-09-13 20:51] VITALS: BP 136/82; PULSE 95; RESP 20; O2SAT 98
== END 2018-09-13 20:54 | disposition home or self-care (01) ==
PROVIDERS: Emergency Provider Nurse Practitioner; PCP Nurse Practitioner Family
DX: J44.1 Chronic obstructive pulmonary disease with (acute) exacerbation (principal); J18.9 Pneumonia, unspecified organism
CPT/HCPCS: 71046; 87400; 93005; 93010; 94640; 99283; 99284; J7613

== ENCOUNTER 2018-09-17 11:59 | Observation (INO) | payer OTHER, MEDICAID, SELFPAY ==
[2018-09-17] VITALS (10 sets, daily range): BP systolic 118–142; BP diastolic 70–91; PULSE 86–104; RESP 18–32; TEMP 36.1–36.9; O2SAT 87–98; BMI 43.9
[2018-09-17] MEDS: ALBUTEROL/IPRATROPIUM 3 ML AMPUL INH ×3 (12:18→14:43)
--- NOTE | 2018-09-17 12:47 | ED.SOB ---
HPI - SOB/Dyspnea <Giuliana Pike, [employer]-BC - Last Filed: 09/17/18 16:43> General Chief Complaint: Shortness of Breath/Dyspnea Stated Complaint: says has pneumonia, getting worse Time Seen by Provider: 09/17/18 12:14 Source: patient and family Mode of arrival: ambulatory Limitations: no limitations History of Present Illness The patient is a 43-year-old female who presents with her sister for chief complaint of worsening pneumonia. She is an active smoker. She has a history of COPD. She was seen at this facility on 09/14 and diagnosed with pneumonia. She was started on azithromycin as well as a burst of prednisone. She has not followed up with primary care provider since this happened. She states that she is using four nebulizers per day at home. She denies any constant chest pressure, but complains of muscle pain when coughing. She feels as over cough a cyclical and she cannot make it any better. Related Data Home Medications Medication Instructions Recorded Confirmed albuterol sulfate [ProAir HFA] 1 - 2 puff INHALATION Q4-6H PRN 09/24/17 09/17/18 alprazolam [Xanax] 1 mg PO TID PRN 09/24/17 09/17/18 [id number] 1 tab PO Q4H PRN 09/24/17 09/17/18 mometasone-formoterol [Dulera] 2 puff INHALATION DAILY 09/24/17 09/17/18 tiotropium bromide [Spiriva with 1 cap INHALATION DAILY 09/24/17 09/17/18 HandiHaler] esomeprazole magnesium 20 mg PO DAILY 09/13/18 09/17/18 ipratropium-albuterol 3 ml INHALATION Q6H PRN 09/13/18 09/17/18 loratadine 10 mg PO DAILY 09/13/18 09/17/18 olanzapine 15 mg PO DAILY 09/13/18 09/17/18 venlafaxine 150 mg PO DAILY 09/13/18 09/17/18 codeine-guaifenesin [Guaiatussin 10 ml PO Q6H PRN 09/17/18 09/17/18 AC] nicotine 1 patch TOPICAL DAILY 09/17/18 09/17/18 Previous Rx's Medication Instructions Recorded azithromycin See Rx Instructions .ROUTE 09/13/18 .COMPLEX #6 tab prednisone 50 mg PO DAILY #7 tab 09/13/18 Allergies Allergy/AdvReac Type Severity Reaction Status Date / Time Penicillins [PENICILLINS] Allergy Unknown Verified 06/14/18 12:31 Review of Systems <MARLEE Graves - Last Filed: 09/17/18 16:43> Review of Systems GENERAL: Denies chills, fatigue, malaise, fever, sweats. HEENT: Denies sinus pain, ear pain, sore throat, difficulty swallowing, dizziness. RESPIRATORY: See HPI CARDIOVASCULAR: Denies chest pain, palpitations, orthopnea, edema, GASTROINTESTINAL: Denies nausea, vomiting, abdominal pain, diarrhea, constipation, melena. : Denies dysuria, frequency, incontinence, hematuria, urinary retention. MUSCULOSKELETAL: denies weakness, joint pain, or bony pain SKIN: Denies rash, skin lesions, or other NEUROLOGIC: Denies weakness, headache, numbness, change in speech, confusion, seizures, incoordination. PSYCHIATRIC: No concerning psychosocial issues. 12 point review of systems is negative except for those stated above PFSH <MARLEE Graves - Last Filed: 09/17/18 16:43> Medical History Acute bronchitis with chronic obstructive pulmonary disease (COPD) (Acute) Bipolar 1 disorder (Chronic) Chronic respiratory failure with hypoxia (Chronic) GERD (gastroesophageal reflux disease) (Chronic) H/O: hysterectomy (Chronic) Tobacco dependence (Chronic) Vaginal prolapse (Chronic) Anxiety (Chronic) COPD (chronic obstructive pulmonary disease) (Chronic) Depression (Chronic) Migraine (Chronic) Sleep apnea (Chronic) Surgical History History of appendectomy (Chronic) Social History Smoking Status: Current every day smoker Social History household members: spouse Smoking Status: Current every day smoker Exam <MARLEE Graves - Last Filed: 09/17/18 16:43> Narrative Exam Narrative: GENERAL: Obese female sitting on stretcher coughing HEAD: Atraumatic. Normocephalic. No temporal or scalp tenderness. EYES: Pupils equal round and reactive. Extraocular motions intact. No scleral icterus. No injection or drainage. ENT: Nose without bleeding, purulent drainage or septal hematoma. Throat without erythema, tonsillar hypertrophy or exudate. Uvula midline. Airway patent. NECK: Trachea midline. No JVD or lymphadenopathy. Supple, nontender, no meningeal signs. CARDIOVASCULAR: Regular rate and rhythm RESPIRATORY: diffuse expiratory wheezes. Breath sounds equal bilaterally. Persistent dry cough in emergency department. No stridor. Three word dyspnea noted. No accessory muscle use. pursed lip breathing. tachypneic GASTROINTESTINAL: Abdomen soft, non-tender, nondistended. No hepato-splenomegaly, or palpable masses. No guarding. Active bowel sounds. EXTREMITIES: No clubbing, cyanosis, or edema. No joint tenderness, effusion, or edema noted. BACK: Nontender without deformity or crepitance. No flank tenderness. NEURO: AOx3. SKIN: No rash or erythema. Initial Vital Signs Initial Vital Signs: Vital Signs Temperature 98.4 F 09/17/18 12:00 Pulse Rate 96 H 09/17/18 12:00 Respiratory Rate 22 09/17/18 12:00 Blood Pressure 142/91 H 09/17/18 12:00 Pulse Oximetry 92 09/17/18 12:00 <Giuliana Strong DO - Last Filed: 09/17/18 19:16> Initial Vital Signs Initial Vital Signs: Vital Signs Temperature 98.4 F 09/17/18 12:00 Pulse Rate 96 H 09/17/18 12:00 Respiratory Rate 22 09/17/18 12:00 Blood Pressure 142/91 H 09/17/18 12:00 Pulse Oximetry 92 09/17/18 12:00 Course <ANTONIA Graves-AGAPITO - Last Filed: 09/17/18 16:43> Course Narrative: And checked on the patient several times throughout her stay in the emergency department. Discussed ABG results inpatient plan and care with with Dr. Strong Orders Ordered: ED Orders 09/17/18 12:13 Consult to Respiratory Therapy Evaluate & Treat 09/17/18 12:46 B Type Natriuretic Peptide Stat Complete Blood Count AUTO DIFF Stat Comprehensive Metabolic Panel Stat Troponin & CK Cardiac Panel Stat 09/17/18 12:51 XR chest 1V Stat 09/17/18 13:00 Arterial Blood Gas Stat 09/17/18 13:20 CT angio chest PE protocol Stat 09/17/18 14:20 Sputum Culture Stat 09/17/18 15:26 EKG-12 Lead Stat 09/17/18 16:16 Education, smoking cessation ONGOING RT Consult Eval and Treat Now 09/18/18 05:00 Basic Metabolic Panel Routine Complete Blood Count AUTO DIFF Routine Acetaminophen (Tylenol) 650 mg PO Q6HR PRN PRN Reason: As Needed for Fever/Mild Pain Acetaminophen/Butalbital/Caffeine (Fioricet) 1 each PO Q4HR PRN PRN Reason: Headache Albuterol (Ventolin) 2.5 mg INH [id number] PRN PRN Reason: Shortness Of Breath Or Wheezing Albuterol/Ipratropium (Duoneb) 3 ml INH [id number] [facility] Last Admin: 09/17/18 19:10 Dose: Not Given Alprazolam (Xanax) 1 mg PO TID [facility] Enoxaparin Sodium (Lovenox) 40 mg SUBCUT DAILY [facility] Guaifenesin/Dextromethorphan (Robitussin Dm Syrup) 5 ml PO Q6H PRN PRN Reason: Cough Last Admin: 09/17/18 17:52 Dose: 5 ml Levofloxacin (Levaquin) 750 mg in 150 mls @ 100 mls/hr IV Q24H [facility] Loratadine (Claritin) 10 mg PO DAILY [facility] Methylprednisolone (Solu-Medrol) 40 mg IV Q8H [facility] Nicotine (Nicoderm) 7 mg TOP 1700 [facility] Last Admin: 09/17/18 17:47 Dose: 7 mg Olanzapine (Zyprexa) 15 mg PO DAILY [facility] Pantoprazole Sodium (Protonix) 20 mg PO 0700 [facility] Venlafaxine HCl (Effexor Xr) 150 mg PO DAILY [facility] Discontinued Medications Acetaminophen (Tylenol) 650 mg PO NOW ONE Stop: 09/17/18 14:52 Last Admin: 09/17/18 15:02 Dose: 650 mg Albuterol/Ipratropium (Duoneb) 3 ml INH NOW ONE Stop: 09/17/18 12:16 Last Admin: 09/17/18 12:18 Dose: 3 ml Albuterol/Ipratropium (Duoneb) 3 ml INH NOW ONE Stop: 09/17/18 12:17 Last Admin: 09/17/18 12:18 Dose: 3 ml Albuterol/Ipratropium (Duoneb) 3 ml INH NOW ONE Stop: 09/17/18 14:37 Last Admin: 09/17/18 14:43 Dose: 3 ml Benzonatate (Tessalon Perles) 100 mg PO NOW ONE Stop: 09/17/18 15:34 Last Admin: 09/17/18 15:48 Dose: 100 mg Levofloxacin (Levaquin) 750 mg in 150 mls @ 100 mls/hr IV NOW ONE Stop: 09/17/18 16:06 Last Infusion: 09/17/18 17:07 Dose: 0 mls/hr Infusion: 09/17/18 16:12 Dose: 100 mls/hr Admin: 09/17/18 15:00 Dose: 100 mls/hr Ketorolac Tromethamine (Toradol) 30 mg IV NOW ONE Stop: 09/17/18 14:59 Last Admin: 09/17/18 15:02 Dose: 30 mg Lorazepam (Ativan) 1 mg IV NOW ONE Stop: 09/17/18 13:20 Last Admin: 09/17/18 13:24 Dose: 1 mg Methylprednisolone (Solu-Medrol 125 Mg Vial) 125 mg IV NOW ONE Stop: 09/17/18 12:45 Last Admin: 09/17/18 12:54 Dose: 125 mg Vital Signs - 8 hr 09/17/18 12:00 09/17/18 12:49 09/17/18 14:36 Temperature 98.4 F Pulse Rate 96 H 104 H Respiratory Rate 22 32 H 32 H Blood Pressure 142/91 H Blood Pressure [Left Arm] 123/70 Pulse Oximetry 92 97 93 09/17/18 14:43 09/17/18 15:39 09/17/18 15:40 Temperature Pulse Rate 92 H 92 H Respiratory Rate 26 H 22 22 Blood Pressure Blood Pressure [Left Arm] 118/89 Pulse Oximetry 95 87 L 98 09/17/18 16:30 09/17/18 16:34 Temperature 98.2 F Pulse Rate 86 Respiratory Rate 24 Blood Pressure 127/73 Blood Pressure [Left Arm] Pulse Oximetry 96 93 <Giuliana Strong, - Last Filed: 09/17/18 19:16> Orders Ordered: ED Orders 09/17/18 12:13 Consult to Respiratory Therapy Evaluate & Treat 09/17/18 12:46 B Type Natriuretic Peptide Stat Complete Blood Count AUTO DIFF Stat Comprehensive Metabolic Panel Stat Troponin & CK Cardiac Panel Stat 09/17/18 12:51 XR chest 1V Stat 09/17/18 13:00 Arterial Blood Gas Stat 09/17/18 13:20 CT angio chest PE protocol Stat 09/17/18 14:20 Sputum Culture Stat 09/17/18 15:26 EKG-12 Lead Stat 09/17/18 16:16 Education, smoking cessation ONGOING RT Consult Eval and Treat Now 09/18/18 05:00 Basic Metabolic Panel Routine Complete Blood Count AUTO DIFF Routine Acetaminophen (Tylenol) 650 mg PO Q6HR PRN PRN Reason: As Needed for Fever/Mild Pain Acetaminophen/Butalbital/Caffeine (Fioricet) 1 each PO Q4HR PRN PRN Reason: Headache Albuterol (Ventolin) 2.5 mg INH [id number] PRN PRN Reason: Shortness Of Breath Or Wheezing Albuterol/Ipratropium (Duoneb) 3 ml INH [id number] Last Admin: 09/17/18 19:10 Dose: Not Given Alprazolam (Xanax) 1 mg PO TID [facility] Enoxaparin Sodium (Lovenox) 40 mg SUBCUT DAILY [facility] Guaifenesin/Dextromethorphan (Robitussin Dm Syrup) 5 ml PO Q6H PRN PRN Reason: Cough Last Admin: 09/17/18 17:52 Dose: 5 ml Levofloxacin (Levaquin) 750 mg in 150 mls @ 100 mls/hr IV Q24H [facility] Loratadine (Claritin) 10 mg PO DAILY [facility] Methylprednisolone (Solu-Medrol) 40 mg IV Q8H [facility] Nicotine (Nicoderm) 7 mg TOP 1700 [facility] Last Admin: 09/17/18 17:47 Dose: 7 mg Olanzapine (Zyprexa) 15 mg PO DAILY [facility] Pantoprazole Sodium (Protonix) 20 mg PO 0700 [facility] Venlafaxine HCl (Effexor Xr) 150 mg PO DAILY [facility] Discontinued Medications Acetaminophen (Tylenol) 650 mg PO NOW ONE Stop: 09/17/18 14:52 Last Admin: 09/17/18 15:02 Dose: 650 mg Albuterol/Ipratropium (Duoneb) 3 ml INH NOW ONE Stop: 09/17/18 12:16 Last Admin: 09/17/18 12:18 Dose: 3 ml Albuterol/Ipratropium (Duoneb) 3 ml INH NOW ONE Stop: 09/17/18 12:17 Last Admin: 09/17/18 12:18 Dose: 3 ml Albuterol/Ipratropium (Duoneb) 3 ml INH NOW ONE Stop: 09/17/18 14:37 Last Admin: 09/17/18 14:43 Dose: 3 ml Benzonatate (Tessalon Perles) 100 mg PO NOW ONE Stop: 09/17/18 15:34 Last Admin: 09/17/18 15:48 Dose: 100 mg Levofloxacin (Levaquin) 750 mg in 150 mls @ 100 mls/hr IV NOW ONE Stop: 09/17/18 16:06 Last Infusion: 09/17/18 17:07 Dose: 0 mls/hr Infusion: 09/17/18 16:12 Dose: 100 mls/hr Admin: 09/17/18 15:00 Dose: 100 mls/hr Ketorolac Tromethamine (Toradol) 30 mg IV NOW ONE Stop: 09/17/18 14:59 Last Admin: 09/17/18 15:02 Dose: 30 mg Lorazepam (Ativan) 1 mg IV NOW ONE Stop: 09/17/18 13:20 Last Admin: 09/17/18 13:24 Dose: 1 mg Methylprednisolone (Solu-Medrol 125 Mg Vial) 125 mg IV NOW ONE Stop: 09/17/18 12:45 Last Admin: 09/17/18 12:54 Dose: 125 mg Vital Signs - 8 hr 09/17/18 12:00 09/17/18 12:49 09/17/18 14:36 Temperature 98.4 F Pulse Rate 96 H 104 H Respiratory Rate 22 32 H 32 H Blood Pressure 142/91 H Blood Pressure [Left Arm] 123/70 Pulse Oximetry 92 97 93 09/17/18 14:43 09/17/18 15:39 09/17/18 15:40 Temperature Pulse Rate 92 H 92 H Respiratory Rate 26 H 22 22 Blood Pressure Blood Pressure [Left Arm] 118/89 Pulse Oximetry 95 87 L 98 09/17/18 16:30 09/17/18 16:34 Temperature 98.2 F Pulse Rate 86 Respiratory Rate 24 Blood Pressure 127/73 Blood Pressure [Left Arm] Pulse Oximetry 96 93 MDM - SOB/Dyspnea <ANTONIA Graves-BC - Last Filed: 09/17/18 16:43> Lab Data Result diagrams: 09/17/18 12:46 09/17/18 12:46 Lab Results 09/17/18 09/17/18 09/17/18 Range/Units 12:46 12:46 12:46 WBC 8.3 (4.5-11.0) X10^3/uL RBC 4.99 (4.0-5.2) X10^6/uL Hgb 15.9 (12.0-16.0) g/dL Hct 46.4 H (36-46) % MCV 93.1 (80-100) fL MCH 31.9 (26-34) PG MCHC 34.3 (30-36) % RDW 14.2 (11.6-14.8) % Plt Count 170 (150-400) X10^3/uL Neut % (Auto) 82.2 H (50-75) % Lymph % (Auto) 13.4 L (25-40) % Lake % (Auto) 4.1 (3-14) % Eos % (Auto) 0.0 L (2-4) % Baso % (Auto) 0.3 (0-2) % Neut # (Auto) 6800 (2212-2521) /uL Lymph # (Auto) 1100 (6514-6045) /uL Lake # (Auto) 300 (0-900) /uL Eos # (Auto) 0 (0-450) /uL Baso # (Auto) 0 (0-100) /uL ABG pH (7.35-7.45) ABG pCO2 (35-45) mmHg ABG pO2 (80-100) mmHg ABG HCO3 (22-26) mmol/L ABG Total CO2 (21-31) mmol/L ABG O2 Saturation (95-100) % ABG Base Excess (-2-2) mmol/L FiO2 Sodium 137 (137-145) mmol/L Potassium 3.5 (3.4-5.1) mmol/L Chloride 102 (98-107) mmol/L Carbon Dioxide 25 (22-32) mmol/L BUN 12 (7-17) mg/dL Creatinine 0.70 (0.52-1.04) mg/dL Estimated GFR > 60.0 (>60) mL/min BUN/Creatinine Ratio 17.1 (6-22) Glucose 168 H (70-100) mg/dL Calcium 9.1 (8.4-10.2) mg/dL Total Bilirubin 0.5 (0.2-1.3) mg/dL AST 29 (14-36) IU/L ALT 37 (9-52) IU/L Alkaline Phosphatase 96 (38-126) U/L Total Creatine Kinase 44 (30-135) U/L CK-MB (CK-2) TNP CK-MB (CK-2) Rel Index TNP Troponin I < 0.012 (0.01-0.034) ng/mL B-Natriuretic Peptide < 100 (<100) Total Protein 7.6 (6.3-8.2) g/dL Albumin 4.3 (3.5-5.0) g/dL Globulin 3.3 (1.7-4.1) g/dL Albumin/Globulin Ratio 1.3 (1.0-2.8) // Range/Units 13:00 WBC (4.5-11.0) X10^3/uL RBC (4.0-5.2) X10^6/uL Hgb (12.0-16.0) g/dL Hct (36-46) % MCV (80-100) fL MCH (26-34) PG MCHC (30-36) % RDW (11.6-14.8) % Plt Count (150-400) X10^3/uL Neut % (Auto) (50-75) % Lymph % (Auto) (25-40) % Lake % (Auto) (3-14) % Eos % (Auto) (2-4) % Baso % (Auto) (0-2) % Neut # (Auto) (4990-5920) /uL Lymph # (Auto) (3441-1223) /uL Lake # (Auto) (0-900) /uL Eos # (Auto) (0-450) /uL Baso # (Auto) (0-100) /uL ABG pH 7.45 (7.35-7.45) ABG pCO2 29.7 L (35-45) mmHg ABG pO2 70 L (80-100) mmHg ABG HCO3 20 L (22-26) mmol/L ABG Total CO2 21 (21-31) mmol/L ABG O2 Saturation 95 (95-100) % ABG Base Excess -4.0 L (-2-2) mmol/L FiO2 0.21 Sodium (137-145) mmol/L Potassium (3.4-5.1) mmol/L Chloride (98-107) mmol/L Carbon Dioxide (22-32) mmol/L BUN (7-17) mg/dL Creatinine (0.52-1.04) mg/dL Estimated GFR (>60) mL/min BUN/Creatinine Ratio (6-22) Glucose (70-100) mg/dL Calcium (8.4-10.2) mg/dL Total Bilirubin (0.2-1.3) mg/dL AST (14-36) IU/L ALT (9-52) IU/L Alkaline Phosphatase (38-126) U/L Total Creatine Kinase (30-135) U/L CK-MB (CK-2) CK-MB (CK-2) Rel Index Troponin I (0.01-0.034) ng/mL B-Natriuretic Peptide (<100) Total Protein (6.3-8.2) g/dL Albumin (3.5-5.0) g/dL Globulin (1.7-4.1) g/dL Albumin/Globulin Ratio (1.0-2.8) Imaging Data CT chest: Radiologist's impression: [place] [address] CT Scan Report Signed Patient: Alyse Martin RMR#: [id number] : 1975Acct:[id number] Age/Sex: 43 / FDate of Service: 09/17/18 Loc: ED Accession Number: [id number] Procedure: CT angio chest PE protocol Ordering Provider: Giuliana Pike-BC PROCEDURE: CT ANGIO CHEST PE PROTOCOL INDICATIONS: sob TECHNIQUE: After the administration of intravenous contrast, 2 mm thick sections acquired from the pulmonary apices to the posterior costophrenic angles. 3-dimensional maximum intensity projection (MIP) coronal and sagittal reformats were then acquired through the thorax. For radiation dose reduction, the following was used: automated exposure control, adjustment of mA and/or kV according to patient size. COMPARISON: [facility], CT, CT ANGIO CHEST PE PROTOCOL, 09/24/2017, 16:18. FINDINGS: Image quality: Nondiagnostic but suboptimal given body habitus and technique. Pulmonary arteries: Pulmonary arteries are normal in size, and demonstrate no intraluminal filling defects to suggest central pulmonary embolism. Lungs and pleura: Emphysematous changes seen in the upper lobes anterolateral subpleural location. The lungs are otherwise clear without consolidation or groundglass opacities. No peribronchial thickening. No pleural effusions or pneumothorax. Central and peripheral airways are patent. Mediastinum: Moderate bilateral hilar adenopathy and mild diffuse mediastinal adenopathy. One of the larger left pre-carinal lymph nodes measures 10 mm in short axis. No supraclavicular or axillary adenopathy. Heart size is normal, without pericardial effusion. No mediastinal or hilar adenopathy. Thoracic aorta is normal in caliber and enhancement. Esophagus is normal in caliber, with a very small hiatal hernia. Bones and chest wall: No suspicious bony lesions. Ribs and thoracic spine appear intact throughout. Thyroid gland is suboptimally evaluated. Abdomen: Visualized upper abdomen demonstrates mild diffuse hepatic steatosis and a partially imaged mildly dysmorphic right kidney. IMPRESSION: 1. No pulmonary embolus. 2. Bilateral hilar and mediastinal adenopathy, most likely reactive to infectious or inflammatory process, although no visible pulmonary parenchymal changes. Consider other diseases, potentially sarcoidosis. This degree of adenopathy was not present on the prior study. 3. Stable mild, early upper lobe emphysematous changes. 4. Hepatic steatosis appears chronic. Dictated by: Aby Olivarez M.D. on 09/17/2018 at 13:47 Approved by: Aby Olivarez M.D. on 09/17/2018 at 13:56 Chest x-ray: Radiologist's impression: [address] [address] XRay Report Signed Patient: Alyse Martin RMR#: [id number] : 1975Acct:[id number] Age/Sex: 43 / FDate of Service: 09/17/18 Loc: ED Accession Number: [id number] Procedure: XR chest 1V Ordering Provider: Giuliana Pike-BC PROCEDURE: XR CHEST 1V INDICATIONS: sob TECHNIQUE: One view of the chest was acquired. COMPARISON: [facility], CR, XR CHEST 2V, 09/13/2018, 19:27. [facility], CT, CT ANGIO CHEST PE PROTOCOL, 09/17/2018, 13:22. [facility], CR, XR CHEST 1V, 09/24/2017, 14:40. FINDINGS: Surgical changes and devices: None. Lungs and pleura: There are respiratory motions. Lungs are clear. No pleural effusions or pneumothorax. Mediastinum: Mediastinal contours appear normal. Heart size is normal. Bones and chest wall: No suspicious bony lesions. Overlying soft tissues appear unremarkable. IMPRESSION: No acute cardiopulmonary disease. Dictated by: Antonieta Mayorga M.D. on 09/17/2018 at 12:57 Approved by: Antonieta Mayorga M.D. on 09/17/2018 at 12:58 ECG Data Attestation: I personally reviewed and interpreted this ECG as follows: Interpretation: Sinus rhythm. Ventricular rate 93. No ectopy noted. No ST elevation or depression. Viewed By Dr Strong 16:22 [facility] Narrative Medical decision making narrative: The patient is a 43-year-old female who presents with chief complaint of worsening pneumonia. She does have a clean x-ray today but appears to be in respiratory distress and remains tachypneic throughout her stay in the emergency department. She did not improve enough with nebulizers and IV steroids in the emergency department. As per up-to-date inpatient COPD exacerbation alk rhythm, I gave her Levaquin. Sputum culture was ordered in the emergency department. I did contact Dr Beltran to consider the patient for inpatient status given her significant decompensation since her recent visit to the emergency department. I feel as though she would benefit from IV steroids, nebulizers etc. Dr. Beltran was kind enough to accept the patient for admission. Troponin was added per her request, which came back negative. I added an additional respiratory panel as well as blood cultures per her request. The patient expressed understanding regarding her admission and had no questions or concerns. <Giuliana Strong, DO - Last Filed: 09/17/18 19:16> Lab Data Lab Results 05/24/19 05/24/19 05/24/19 Range/Units 12:46 12:46 12:46 WBC 8.3 (4.5-11.0) X10^3/uL RBC 4.99 (4.0-5.2) X10^6/uL Hgb 15.9 (12.0-16.0) g/dL Hct 46.4 H (36-46) % MCV 93.1 (80-100) fL MCH 31.9 (26-34) PG MCHC 34.3 (30-36) % RDW 14.2 (11.6-14.8) % Plt Count 170 (150-400) X10^3/uL Neut % (Auto) 82.2 H (50-75) % Lymph % (Auto) 13.4 L (25-40) % Lake % (Auto) 4.1 (3-14) % Eos % (Auto) 0.0 L (2-4) % Baso % (Auto) 0.3 (0-2) % Neut # (Auto) 6800 (5301-7667) /uL Lymph # (Auto) 1100 (4800-7754) /uL Lake # (Auto) 300 (0-900) /uL Eos # (Auto) 0 (0-450) /uL Baso # (Auto) 0 (0-100) /uL ABG pH (7.35-7.45) ABG pCO2 (35-45) mmHg ABG pO2 (80-100) mmHg ABG HCO3 (22-26) mmol/L ABG Total CO2 (21-31) mmol/L ABG O2 Saturation (95-100) % ABG Base Excess (-2-2) mmol/L FiO2 Sodium 137 (137-145) mmol/L Potassium 3.5 (3.4-5.1) mmol/L Chloride 102 (98-107) mmol/L Carbon Dioxide 25 (22-32) mmol/L BUN 12 (7-17) mg/dL Creatinine 0.70 (0.52-1.04) mg/dL Estimated GFR > 60.0 (>60) mL/min BUN/Creatinine Ratio 17.1 (6-22) Glucose 168 H (70-100) mg/dL Calcium 9.1 (8.4-10.2) mg/dL Total Bilirubin 0.5 (0.2-1.3) mg/dL AST 29 (14-36) IU/L ALT 37 (9-52) IU/L Alkaline Phosphatase 96 (38-126) U/L Total Creatine Kinase 44 (30-135) U/L CK-MB (CK-2) TNP CK-MB (CK-2) Rel Index TNP Troponin I < 0.012 (0.01-0.034) ng/mL B-Natriuretic Peptide < 100 (<100) Total Protein 7.6 (6.3-8.2) g/dL Albumin 4.3 (3.5-5.0) g/dL Globulin 3.3 (1.7-4.1) g/dL Albumin/Globulin Ratio 1.3 (1.0-2.8) // Range/Units 13:00 WBC (4.5-11.0) X10^3/uL RBC (4.0-5.2) X10^6/uL Hgb (12.0-16.0) g/dL Hct (36-46) % MCV (80-100) fL MCH (26-34) PG MCHC (30-36) % RDW (11.6-14.8) % Plt Count (150-400) X10^3/uL Neut % (Auto) (50-75) % Lymph % (Auto) (25-40) % Lake % (Auto) (3-14) % Eos % (Auto) (2-4) % Baso % (Auto) (0-2) % Neut # (Auto) (6479-2817) /uL Lymph # (Auto) (3635-7074) /uL Lake # (Auto) (0-900) /uL Eos # (Auto) (0-450) /uL Baso # (Auto) (0-100) /uL ABG pH 7.45 (7.35-7.45) ABG pCO2 29.7 L (35-45) mmHg ABG pO2 70 L (80-100) mmHg ABG HCO3 20 L (22-26) mmol/L ABG Total CO2 21 (21-31) mmol/L ABG O2 Saturation 95 (95-100) % ABG Base Excess -4.0 L (-2-2) mmol/L FiO2 0.21 Sodium (137-145) mmol/L Potassium (3.4-5.1) mmol/L Chloride (98-107) mmol/L Carbon Dioxide (22-32) mmol/L BUN (7-17) mg/dL Creatinine (0.52-1.04) mg/dL Estimated GFR (>60) mL/min BUN/Creatinine Ratio (6-22) Glucose (70-100) mg/dL Calcium (8.4-10.2) mg/dL Total Bilirubin (0.2-1.3) mg/dL AST (14-36) IU/L ALT (9-52) IU/L Alkaline Phosphatase (38-126) U/L Total Creatine Kinase (30-135) U/L CK-MB (CK-2) CK-MB (CK-2) Rel Index Troponin I (0.01-0.034) ng/mL B-Natriuretic Peptide (<100) Total Protein (6.3-8.2) g/dL Albumin (3.5-5.0) g/dL Globulin (1.7-4.1) g/dL Albumin/Globulin Ratio (1.0-2.8) Discharge Plan Departure Patient Disposition: Admitted as Observation Clinical Impression: COPD exacerbation Discharge Date/Time: 09/17/18 16:19 Interventions: ED Discharge Assessment Last Done: 09/17/18 15:54 Admit Date/Time: 09/17/18 14:59 Admit Provider: Melanie Beltran <Giuliana Strong DO - Last Filed: 09/17/18 19:16> Cosign ED Attending Cosritaature Attestation: I was immediately available in the department for consultation, patient seemed quite uncomfortable. Labs and imaging reviewed. ABG was also discussed and she appears to have a respiratory alkalosis with metabolic compensation. PE study was included which was negative. Troponin is negative as well as BNP. CTA shows no PE but shows bilateral hilar mediastinal lymphadenopathy, could be reactive, infectious or inflammatory process but no visible pulmonary parenchymal changes sarcoid could be a possibility and based on patient's age although she does smoke this would be a possibility. It is noted that this degree of adenopathy was not present on the prior study. Decision was made to contact hospitalist for admission and she was accepted. This documentation has been reviewed and I agree with assessment and plan. Supervised by Giuliana Strong DO
--- NOTE | 2018-09-17 12:51 | DI.RAD.S_ITS ---
PROCEDURE: XR CHEST 1V INDICATIONS: sob TECHNIQUE: One view of the chest was acquired. COMPARISON: [facility], CR, XR CHEST 2V, 09/13/2018, 19:27. [facility], CT, CT ANGIO CHEST PE PROTOCOL, 09/17/2018, 13:22. [facility], CR, XR CHEST 1V, 09/24/2017, 14:40. FINDINGS: Surgical changes and devices: None. Lungs and pleura: There are respiratory motions. Lungs are clear. No pleural effusions or pneumothorax. Mediastinum: Mediastinal contours appear normal. Heart size is normal. Bones and chest wall: No suspicious bony lesions. Overlying soft tissues appear unremarkable. IMPRESSION: No acute cardiopulmonary disease. Dictated by: Antonieta Mayorga M.D. on 09/17/2018 at 12:57 Approved by: Antonieta Mayorga M.D. on 09/17/2018 at 12:58
[2018-09-17] MEDS: methylPREDNISolone 125 MG/2 ML VIAL IV (12:54)
[2018-09-17 12:56] LABS: Add Manual Diff / Slide Review NO; Basophils Absolute Auto 0 /uL (0-100); Basophils Percent Auto 0.3 % (0-2); Eosinophils Absolute Auto 0 /uL (0-450); Hematocrit 46.4 % (36-46); Hemoglobin 15.9 g/dL (12.0-16.0); Lymphocytes Absolute Auto 1100 /uL (1100-4500); Lymphocytes Percent Auto 13.4 % (25-40); Mean Corpuscular HGB Conc 34.3 % (30-36); Mean Corpuscular Hemoglobin 31.9 PG (26-34); Mean Corpuscular Volume 93.1 fL (80-100); Monocytes Absolute Auto 300 /uL (0-900); Monocytes Percent Auto 4.1 % (3-14); Neutrophils Absolute Auto 6800 /uL (1500-7000); Neutrophils Percent Auto 82.2 % (50-75); Platelet Count 170 X10^3/uL (150-400); Red Blood Cell Count 4.99 X10^6/uL (4.0-5.2); Red Cell Distribution Width 14.2 % (11.6-14.8); White Blood Cell Count 8.3 X10^3/uL (4.5-11.0)
[2018-09-17 13:06] LABS: Alanine Aminotransferase 37 IU/L (9-52); Albumin 4.3 g/dL (3.5-5.0); Albumin Globulin Ratio 1.3 (1.0-2.8); Alkaline Phosphatase 96 U/L (38-126); Aspartate Aminotransferase 29 IU/L (14-36); BUN Creatinine Ratio 17.1 (6-22); Bilirubin Total 0.5 mg/dL (0.2-1.3); Blood Urea Nitrogen 12 mg/dL (7-17); Calcium 9.1 mg/dL (8.4-10.2); Carbon Dioxide 25 mmol/L (22-32); Chloride 102 mmol/L (98-107); Estimated Glomerular Filt Rate > 60.0 mL/min (>60); Globulin 3.3 g/dL (1.7-4.1); Glucose 168 mg/dL (70-100); HEMOLYSIS < 15 (0-50); Potassium 3.5 mmol/L (3.4-5.1); Sodium 137 mmol/L (137-145); Total Protein 7.6 g/dL (6.3-8.2)
[2018-09-17 13:12] LABS: B Type Natriuretic Peptide < 100 (<100)
--- NOTE | 2018-09-17 13:20 | DI.CT.S_ITS ---
PROCEDURE: CT ANGIO CHEST PE PROTOCOL INDICATIONS: sob TECHNIQUE: After the administration of intravenous contrast, 2 mm thick sections acquired from the pulmonary apices to the posterior costophrenic angles. 3-dimensional maximum intensity projection (MIP) coronal and sagittal reformats were then acquired through the thorax. For radiation dose reduction, the following was used: automated exposure control, adjustment of mA and/or kV according to patient size. COMPARISON: [facility], CT, CT ANGIO CHEST PE PROTOCOL, 09/24/2017, 16:18. FINDINGS: Image quality: Nondiagnostic but suboptimal given body habitus and technique. Pulmonary arteries: Pulmonary arteries are normal in size, and demonstrate no intraluminal filling defects to suggest central pulmonary embolism. Lungs and pleura: Emphysematous changes seen in the upper lobes anterolateral subpleural location. The lungs are otherwise clear without consolidation or groundglass opacities. No peribronchial thickening. No pleural effusions or pneumothorax. Central and peripheral airways are patent. Mediastinum: Moderate bilateral hilar adenopathy and mild diffuse mediastinal adenopathy. One of the larger left pre-carinal lymph nodes measures 10 mm in short axis. No supraclavicular or axillary adenopathy. Heart size is normal, without pericardial effusion. No mediastinal or hilar adenopathy. Thoracic aorta is normal in caliber and enhancement. Esophagus is normal in caliber, with a very small hiatal hernia. Bones and chest wall: No suspicious bony lesions. Ribs and thoracic spine appear intact throughout. Thyroid gland is suboptimally evaluated. Abdomen: Visualized upper abdomen demonstrates mild diffuse hepatic steatosis and a partially imaged mildly dysmorphic right kidney. IMPRESSION: 1. No pulmonary embolus. 2. Bilateral hilar and mediastinal adenopathy, most likely reactive to infectious or inflammatory process, although no visible pulmonary parenchymal changes. Consider other diseases, potentially sarcoidosis. This degree of adenopathy was not present on the prior study. 3. Stable mild, early upper lobe emphysematous changes. 4. Hepatic steatosis appears chronic. Dictated by: Aby Olivarez M.D. on 09/17/2018 at 13:47 Approved by: Aby Olivarez M.D. on 09/17/2018 at 13:56
[2018-09-17] MEDS: LORazepam 2 MG/ML INJ 1 MG IV (13:24)
[2018-09-17 13:46] LABS: PCO2 ABG 29.7 mmHg (35-45); pH ABG 7.45 (7.35-7.45)
[2018-09-17 13:47] LABS: HCO3 ABG 20 mmol/L (22-26); Oxygen Saturation ABG 95 % (95-100); PO2 ABG 70 mmHg (80-100); TCO2 ABG 21 mmol/L (21-31)
[2018-09-17 13:48] LABS: Fractionated Inspired Oxygen 0.21
[2018-09-17] MEDS: levoFLOXacin 750 MG/150 ML PIGGYBACK 100 MG IV (15:00)
[2018-09-17] MEDS: KETOROLAC 60 MG/2 ML VIAL 30 MG IV (15:02)
[2018-09-17] MEDS: ACETAMINOPHEN 325 MG TABLET 650 MG PO (15:02)
[2018-09-17 15:40] LABS: Creatine Kinase 44 U/L (30-135)
[2018-09-17] MEDS: BENZONATATE 100 MG CAPSULE PO (15:48)
[2018-09-17 15:52] LABS: Troponin I < 0.012 ng/mL (0.01-0.034)
--- NOTE | 2018-09-17 16:06 | P.HP_ITS ---
History of Present Illness Date Patient Seen: 09/17/18 Time Patient Seen: 15:47 Chief complaint: says has pneumonia, getting worse Narrative: 43yo female with past medical history of COPD, chronic hypoxic respiratory failure with home oxygen to 3 L at night and as needed, obstructive sleep apnea on CPAP machine, migraines, bipolar disorder, anxiety, GERD, and chronic tobacco dependence presented to emergency department with shortness of breath and cough. Patient states she started developing increasing productive cough and shortness of breath about 1 week ago. She felt increasing need of using oxygen at home, as well as nebulizer treatments, however her condition did not improve. Four days ago patient came to emergency department, where she was diagnosed with bronchitis and sent home with nebulizers, azithromycin, and prednisone. Patient states she came home and followed medication directions thoroughly, but continued to worsen. It got to a point where patient was not even able to walk without getting short of breath. She has also developed chest tightness roughly 2 days ago, that has been on and off and may or may not be associated with her coughing spells. Patient's cough turned from green mucus production to a white frothy mucus production, and is increasing in frequency. Patient would have coughing spells every 10-15 minutes, and was witnessed to have associated loss of consciousness on 2 occasions in the past 2 days due to hypoxia. Loss of consciousness would only last 3-5 seconds, and patient never injured her head while doing so-she was always caught by family prior to landing on the floor. No seizure-like activity was ever noted. When patient came to, there was mild confusion which resolved within seconds. Patient denies any fevers how ever states she has been feeling chills. Denies any blurry vision however has been feeling dizzy and lightheaded as well as chronic headache. Patient denies any abdominal pain, diarrhea, constipation, but had 1 episode of and NBNB vomiting earlier this morning. Denies any symptoms. Patient states that 2 of her children have been experiencing URI like symptoms for the past week, and her has been diagnosed with bronchitis in the past week. Denies any recent traveling. In ED, patient's vitals revealed temperature 98.4? F, respirations between 20- 30, pulse 90, blood pressure 123/70, saturating 92-90% on room air. ABG was performed which showed pH of 7.45, CO2 29, and O2 of 70. Lab work revealed WBC of 8.3, hemoglobin 15.9, hematocrit 46.4, platelets 170. CMP was pertinent for glucose of 168, otherwise benign. chest x-ray revealed no acute cardiopulmonary disease. CTA PE was then performed, which revealed no acute pulmonary embolus, however bilateral hilar mediastinal adenopathy most likely reactive to infectious or inflammatory process, and stable hepatic steatosis. Patient was given multiple nebulizer treatments, as well as 125 mg IV Solu- Medrol, and 750 mg IV Levaquin. Patient was also given 1 mg IV lorazepam for anxiety. Her breathing has moderately improved with the above treatment, however she continued to have disturbing cough and tachypnea, as well as resi dual expiratory wheezing. She was therefore admitted as observation for acute COPD exacerbation. Patient History Medical History (Updated 09/17/18 @ 15:45 by Melanie Beltran MD) Acute bronchitis with chronic obstructive pulmonary disease (COPD) (Acute) Bipolar 1 disorder (Chronic) Chronic respiratory failure with hypoxia (Chronic) GERD (gastroesophageal reflux disease) (Chronic) H/O: hysterectomy (Chronic) Tobacco dependence (Chronic) Vaginal prolapse (Chronic) Anxiety (Chronic) COPD (chronic obstructive pulmonary disease) (Chronic) Depression (Chronic) Migraine (Chronic) Sleep apnea (Chronic) Surgical History (Updated 09/17/18 @ 15:45 by Melanie Beltran MD) History of appendectomy (Chronic) Social History Smoking Status: Current every day smoker Family & Social History Safety & Behavioral: Feels Safe in Current Yes Environment Been Physically Hurt or No Threatened By a Person Tobacco & Substance use: Smoking Status Current every day smoker alcohol intake frequency denies use Substance Use Type does not use Meds Home Medications Medication Instructions Recorded Confirmed Type albuterol sulfate [ProAir HFA] 1 - 2 puff INHALATION Q4-6H PRN 09/24/17 09/17/18 History alprazolam [Xanax] 1 mg PO TID PRN 09/24/17 09/17/18 History owefwergun-xvijahmasadfe-dnwk 1 tab PO Q4H PRN 09/24/17 09/17/18 History mometasone-formoterol [Dulera] 2 puff INHALATION DAILY 09/24/17 09/17/18 History tiotropium bromide [Spiriva with 1 cap INHALATION DAILY 09/24/17 09/17/18 History HandiHaler] azithromycin See Rx Instructions .ROUTE 09/13/18 09/17/18 Rx .COMPLEX #6 tab esomeprazole magnesium 20 mg PO DAILY 09/13/18 09/17/18 History ipratropium-albuterol 3 ml INHALATION Q6H PRN 09/13/18 09/17/18 History loratadine 10 mg PO DAILY 09/13/18 09/17/18 History olanzapine 15 mg PO DAILY 09/13/18 09/17/18 History prednisone 50 mg PO DAILY #7 tab 09/13/18 09/17/18 Rx venlafaxine 150 mg PO DAILY 09/13/18 09/17/18 History codeine-guaifenesin [Guaiatussin 10 ml PO Q6H PRN 09/17/18 09/17/18 History AC] nicotine 1 patch TOPICAL DAILY 09/17/18 09/17/18 History Allergies Allergy/AdvReac Type Severity Reaction Status Date / Time Penicillins [PENICILLINS] Allergy Unknown Verified 06/14/18 12:31 Review of Systems Review of Systems All systems reviewed & are unremarkable except as noted in HPI and below Exam Vital Signs (past 8 hours): - 09/17/18 12:00 09/17/18 12:49 09/17/18 14:36 Temperature 98.4 F Pulse Rate 96 H 104 H Respiratory Rate 22 32 H 32 H Blood Pressure 142/91 H Blood Pressure [Left Arm] 123/70 Pulse Oximetry 92 97 93 09/17/18 14:43 09/17/18 15:39 09/17/18 15:40 Temperature Pulse Rate 92 H 92 H Respiratory Rate 26 H 22 22 Blood Pressure Blood Pressure [Left Arm] 118/89 Pulse Oximetry 95 87 L 98 Oxygen Delivery Method Nasal Cannula Oxygen Flow Rate 2 Narrative Exam Narrative: General: Moderate acute distress with anxiety due to coughing spells, AO x3 HEENT: Atraumatic, normocephalic. PERRLA and EOMI bilaterally. Moist mucous membranes. No pharyngeal erythema or swelling Neck: Supple, no LAD or JVD CV: Regular rate rhythm, no murmurs or gallops appreciated Respiratory: Diminished breath sounds in all lung parrish. Expiratory wheezes appreciated in all lung parrish. No crackles or rhonchi appreciated. GI: No organomegaly. Bowel sounds positive in all 4 quadrants. Obese abdomen. No tenderness to palpation Musculoskeletal: Normal range of motion Skin: No bruising or lesions noted Extremities: No edema Neuro: No focal deficits. AAO x3 Psych: Patient is moderately anxious with occasional tearful episodes. Depressed mood, but is not suicidal or homicidal. Objective Labs Result Diagrams: 09/17/18 12:46 09/17/18 12:46 Labs: Laboratory Results - last 24 hr 09/17/18 09/17/18 09/17/18 12:46 12:46 12:46 WBC 8.3 RBC 4.99 Hgb 15.9 Hct 46.4 H MCV 93.1 MCH 31.9 MCHC 34.3 RDW 14.2 Plt Count 170 Neut % (Auto) 82.2 H Lymph % (Auto) 13.4 L [place] % (Auto) 4.1 Eos % (Auto) 0.0 L Baso % (Auto) 0.3 Neut # (Auto) 6800 Lymph # (Auto) 1100 [place]eller # (Auto) 300 Eos # (Auto) 0 Baso # (Auto) 0 ABG pH ABG pCO2 ABG pO2 ABG HCO3 ABG Total CO2 ABG O2 Saturation ABG Base Excess FiO2 Sodium 137 Potassium 3.5 Chloride 102 Carbon Dioxide 25 BUN 12 Creatinine 0.70 Estimated GFR > 60.0 BUN/Creatinine Ratio 17.1 Glucose 168 H Calcium 9.1 Total Bilirubin 0.5 AST 29 ALT 37 Alkaline Phosphatase 96 Total Creatine Kinase 44 CK-MB (CK-2) TNP CK-MB (CK-2) Rel Index TNP B-Natriuretic Peptide < 100 Total Protein 7.6 Albumin 4.3 Globulin 3.3 Albumin/Globulin Ratio 1.3 09/17/18 13:00 WBC RBC Hgb Hct MCV MCH MCHC RDW Plt Count Neut % (Auto) Lymph % (Auto) Teller % (Auto) Eos % (Auto) Baso % (Auto) Neut # (Auto) Lymph # (Auto) Teller # (Auto) Eos # (Auto) Baso # (Auto) ABG pH 7.45 ABG pCO2 29.7 L ABG pO2 70 L ABG HCO3 20 L ABG Total CO2 21 ABG O2 Saturation 95 ABG Base Excess -4.0 L FiO2 0.21 Sodium Potassium Chloride Carbon Dioxide BUN Creatinine Estimated GFR BUN/Creatinine Ratio Glucose Calcium Total Bilirubin AST ALT Alkaline Phosphatase Total Creatine Kinase CK-MB (CK-2) CK-MB (CK-2) Rel Index B-Natriuretic Peptide Total Protein Albumin Globulin Albumin/Globulin Ratio Assessment & Plan Assessment & Plan narrative: 43yo female with past medical history of COPD, chronic hypoxic respiratory failure with home oxygen to 3 L at night and as needed, obstructive sleep apnea on CPAP machine, migraines, bipolar disorder, anxiety, GERD, and chronic tobacco dependence presented to emergency department with shortness of breath and cough. She is admitted as observation for acute COPD exacerbation. 1. Acute COPD exacerbation -possibly due to URI as an inciting factor, given sick contacts -patient failed outpatient therapy with p.o. prednisone and azithromycin -patient is hemodynamically stable with no leukocytosis -AB.45// -chest x-ray and CTA PE without evidence of pneumonia or other infectious process, however concerning for bilateral mediastinal lymphadenopathy -will get respiratory/flu panel, blood and sputum cultures -will continue Solu-Medrol 40 mg IV q.8 hours and re-evaluate tomorrow for pos sible PO D escalation -given failure with azithromycin therapy, will start patient on Levaquin IV 750 mg IV daily -start patient on duo nebs q.4 hours scheduled as well as albuterol q.2 hours as needed -hold patient's COPD home regimen at this time, and resume when patient is more stable 2. Chest tightness, present on admission, acute -likely due to COPD exacerbation -troponins are negative -patient was given ketorolac and Tylenol in ED. Will start patient on cough syrup and Tylenol as needed 3. Tobacco dependence, chronic, present on admission -patient has cut down to 5 cigarettes per day -will start nicotine patch 4. Obstructive sleep apnea -on CPAP use at home, will continue 5. GERD -resume omeprazole 6. Bipolar disorder -resume olanzapine and venlafaxine 7. Chronic migraines -resume zfujdaeumb-hgxiqfjbhohap-ofdltwyr home regimen 8. Moderate anxiety -resume Xanax home regimen Patient is full code DVT prophylaxis with Lovenox subQ Dispo: Patient is here with acute COPD exacerbation and is being treated with IV steroids and antibiotics, as well as frequent duo nebs.
--- NOTE | 2018-09-17 16:14 | PC.NURSE ---
[facility] updated on patient, BC just ordered, not completed in ED. Pt unable to give sputum culture at this time.
[2018-09-17] MEDS: NICOTINE 7 MG PATCH TOP (17:47)
[2018-09-17] MEDS: guaiFENesin/DEXTROMETH Syrup 5 ML SYRUP PO (17:52)
[2018-09-17] MEDS: ALPRAZolam 0.25 MG TABLET 1 MG PO (21:05)
[2018-09-17] MEDS: BUTALB/APAP/CAFFEINE 50/325/40 TABLET 1 EACH PO (21:05)
--- NOTE | 2018-09-17 23:27 | PC.NURSE ---
admit note: A&OX3. 96% on 3L. pt uses O2 at home. cont pulse ox. LS: dim, anterior expiratory wheezes. SOB w/exertion. intermittent cough. scant amount of sputum. CMS+. SBA to the BSC. oriented pt to the room. call light in reach.
[2018-09-18] VITALS (9 sets, daily range): BP systolic 118–150; BP diastolic 77–99; PULSE 88–93; RESP 16–18; TEMP 36.6–36.7; O2SAT 86–95
[2018-09-18] MEDS: guaiFENesin/DEXTROMETH Syrup 5 ML SYRUP PO ×3 (00:59→17:44)
[2018-09-18] MEDS: BUTALB/APAP/CAFFEINE 50/325/40 TABLET 1 EACH PO ×3 (03:59→17:43)
[2018-09-18 06:34] LABS: BUN Creatinine Ratio 21.7 (6-22); Blood Urea Nitrogen 13 mg/dL (7-17); Carbon Dioxide 27 mmol/L (22-32); Chloride 103 mmol/L (98-107); Estimated Glomerular Filt Rate > 60.0 mL/min (>60); Glucose 137 mg/dL (70-100); HEMOLYSIS < 15 (0-50); Potassium 4.1 mmol/L (3.4-5.1); Sodium 139 mmol/L (137-145)
[2018-09-18 06:40] LABS: Add Manual Diff / Slide Review NO; Basophils Absolute Auto 0 /uL (0-100); Basophils Percent Auto 0.1 % (0-2); Eosinophils Absolute Auto 0 /uL (0-450); Hematocrit 46.2 % (36-46); Hemoglobin 15.6 g/dL (12.0-16.0); Lymphocytes Absolute Auto 1400 /uL (1100-4500); Lymphocytes Percent Auto 14.3 % (25-40); Mean Corpuscular HGB Conc 33.7 % (30-36); Mean Corpuscular Hemoglobin 31.7 PG (26-34); Mean Corpuscular Volume 94.1 fL (80-100); Monocytes Absolute Auto 800 /uL (0-900); Monocytes Percent Auto 8.7 % (3-14); Neutrophils Absolute Auto 7300 /uL (1500-7000); Neutrophils Percent Auto 76.9 % (50-75); Platelet Count 180 X10^3/uL (150-400); Red Blood Cell Count 4.91 X10^6/uL (4.0-5.2); Red Cell Distribution Width 13.7 % (11.6-14.8); White Blood Cell Count 9.5 X10^3/uL (4.5-11.0)
[2018-09-18 08:08] LABS: Adenovirus Not Detected (Not Detect); Coronavirus 229E Not Detected (Not Detect); Coronavirus HKU1 Not Detected (Not Detect); Coronavirus NL 63 Not Detected (Not Detect); Coronavirus OC43 Not Detected (Not Detect); Human Metapneumovirus Not Detected (Not Detect)
[2018-09-18 08:09] LABS: Bordetella pertussis Not Detected (Not Detect); Chlamydophila pneumoniae Not Detected (Not Detect); Human Rhinovirus/Enterovirus Not Detected (Not Detect); Influenza A Not Detected (Not Detect); Influenza B Not Detected (Not Detect); Mycoplasma pneumoniae Not Detected (Not Detect); Parainfluenza Virus 1 Not Detected (Not Detect); Parainfluenza Virus 2 Not Detected (Not Detect); Parainfluenza Virus 3 Detected (Not Detect); Parainfluenza Virus 4 Not Detected (Not Detect); Respiratory Syncytial Virus Not Detected (Not Detect)
[2018-09-18] MEDS: LORATADINE 10 MG TABLET PO (08:17)
[2018-09-18] MEDS: ALPRAZolam 0.25 MG TABLET 1 MG PO ×3 (08:17→20:50)
[2018-09-18] MEDS: PANTOPRAZOLE 20 MG TABLET PO (08:18)
[2018-09-18] MEDS: VENLAFAXINE ER 75 MG CAP 150 MG PO (08:18)
[2018-09-18] MEDS: ENOXAPARIN 40 MG/0.4 ML SYRINGE SUBCUT (08:19)
[2018-09-18] MEDS: OLANZapine 2.5 MG TABLET 15 MG PO (08:19)
--- NOTE | 2018-09-18 12:47 | P.PN_ITS ---
Subjective Date Patient Seen: 09/18/18 Time Patient Seen: 12:41 Interval history: Follow-up on COPD exacerbation Patient seen at bedside. She is slightly improving, although definitely not back to her baseline. Patient still requiring a lot of nebulizer treatments for her shortness of breath. States her cough is mildly improving. No acute overnight events. Exam Vital Signs (past 8 hours): - 09/18/18 08:00 09/18/18 09:39 09/18/18 10:56 Temperature 97.8 F Pulse Rate 88 Respiratory Rate 16 Blood Pressure 149/99 H Pulse Oximetry 94 92 92 Oxygen Delivery Method Nasal Cannula Oxygen Flow Rate 3 Narrative Exam Narrative: General: NO acute distress, AAOx3. HEENT: Atraumatic, normocephalic. PERRLA and EOMI bilaterally. Moist mucous membranes. No pharyngeal erythema or swelling Neck: Supple, no LAD or JVD CV: Regular rate rhythm, no murmurs or gallops appreciated Respiratory: Diminished breath sounds in all lung parrish but improving. No expiratory wheezes, crackles or rhonchi appreciated at this time. GI: No organomegaly. Bowel sounds positive in all 4 quadrants. Obese abdomen. No tenderness to palpation Musculoskeletal: Normal range of motion Skin: No bruising or lesions noted Extremities: No edema Neuro: No focal deficits. AAO x3 Psych: Patient's mood is appropriate. Able to make her own decisions. Objective Labs Result Diagrams: 09/18/18 05:58 09/18/18 05:58 Labs: Laboratory Results - last 24 hr 09/17/18 09/17/18 09/17/18 12:46 12:46 12:46 WBC 8.3 RBC 4.99 Hgb 15.9 Hct 46.4 H MCV 93.1 MCH 31.9 MCHC 34.3 RDW 14.2 Plt Count 170 Neut % (Auto) 82.2 H Lymph % (Auto) 13.4 L [place] % (Auto) 4.1 Eos % (Auto) 0.0 L Baso % (Auto) 0.3 Neut # (Auto) 6800 Lymph # (Auto) 1100 [place] # (Auto) 300 Eos # (Auto) 0 Baso # (Auto) 0 ABG pH ABG pCO2 ABG pO2 ABG HCO3 ABG Total CO2 ABG O2 Saturation ABG Base Excess FiO2 Sodium 137 Potassium 3.5 Chloride 102 Carbon Dioxide 25 BUN 12 Creatinine 0.70 Estimated GFR > 60.0 BUN/Creatinine Ratio 17.1 Glucose 168 H Calcium 9.1 Total Bilirubin 0.5 AST 29 ALT 37 Alkaline Phosphatase 96 Total Creatine Kinase 44 CK-MB (CK-2) TNP CK-MB (CK-2) Rel Index TNP Troponin I < 0.012 B-Natriuretic Peptide < 100 Total Protein 7.6 Albumin 4.3 Globulin 3.3 Albumin/Globulin Ratio 1.3 Chlamy pneumoniae PCR Adenovirus (PCR) B.parapertussis DNA PCR Coronavirus OC43 (PCR) Coronavirus HKU1 (PCR) Coronavirus 229E (PCR) Coronavirus NL63 (PCR) Human Metapneumovir PCR Influenza Type A (PCR) Influenza Type B (PCR) M. pneumoniae (PCR) Parainfluenza 1 (PCR) Parainfluenza 2 (PCR) Parainfluenza 3 (PCR) Parainfluenza 4 (PCR) RSV (PCR) Entero/Rhino (PCR) 09/17/18 09/18/18 09/18/18 13:00 05:58 05:58 WBC 9.5 RBC 4.91 Hgb 15.6 Hct 46.2 H MCV 94.1 MCH 31.7 MCHC 33.7 RDW 13.7 Plt Count 180 Neut % (Auto) 76.9 H Lymph % (Auto) 14.3 L [place] % (Auto) 8.7 Eos % (Auto) 0.0 L Baso % (Auto) 0.1 Neut # (Auto) 7300 H Lymph # (Auto) 1400 [place] # (Auto) 800 Eos # (Auto) 0 Baso # (Auto) 0 ABG pH 7.45 ABG pCO2 29.7 L ABG pO2 70 L ABG HCO3 20 L ABG Total CO2 21 ABG O2 Saturation 95 ABG Base Excess -4.0 L FiO2 0.21 Sodium 139 Potassium 4.1 Chloride 103 Carbon Dioxide 27 BUN 13 Creatinine 0.60 Estimated GFR > 60.0 BUN/Creatinine Ratio 21.7 Glucose 137 H Calcium 9.0 Total Bilirubin AST ALT Alkaline Phosphatase Total Creatine Kinase CK-MB (CK-2) CK-MB (CK-2) Rel Index Troponin I B-Natriuretic Peptide Total Protein Albumin Globulin Albumin/Globulin Ratio Chlamy pneumoniae PCR Adenovirus (PCR) B.parapertussis DNA PCR Coronavirus OC43 (PCR) Coronavirus HKU1 (PCR) Coronavirus 229E (PCR) Coronavirus NL63 (PCR) Human Metapneumovir PCR Influenza Type A (PCR) Influenza Type B (PCR) M. pneumoniae (PCR) Parainfluenza 1 (PCR) Parainfluenza 2 (PCR) Parainfluenza 3 (PCR) Parainfluenza 4 (PCR) RSV (PCR) Entero/Rhino (PCR) 09/18/18 06:25 WBC RBC Hgb Hct MCV MCH MCHC RDW Plt Count Neut % (Auto) Lymph % (Auto) [place] % (Auto) Eos % (Auto) Baso % (Auto) Neut # (Auto) Lymph # (Auto) [place] # (Auto) Eos # (Auto) Baso # (Auto) ABG pH ABG pCO2 ABG pO2 ABG HCO3 ABG Total CO2 ABG O2 Saturation ABG Base Excess FiO2 Sodium Potassium Chloride Carbon Dioxide BUN Creatinine Estimated GFR BUN/Creatinine Ratio Glucose Calcium Total Bilirubin AST ALT Alkaline Phosphatase Total Creatine Kinase CK-MB (CK-2) CK-MB (CK-2) Rel Index Troponin I B-Natriuretic Peptide Total Protein Albumin Globulin Albumin/Globulin Ratio Chlamy pneumoniae PCR Not detected Adenovirus (PCR) Not detected B.parapertussis DNA PCR Not detected Coronavirus OC43 (PCR) Not detected Coronavirus HKU1 (PCR) Not detected Coronavirus 229E (PCR) Not detected Coronavirus NL63 (PCR) Not detected Human Metapneumovir PCR Not detected Influenza Type A (PCR) Not detected Influenza Type B (PCR) Not detected M. pneumoniae (PCR) Not detected Parainfluenza 1 (PCR) Not detected Parainfluenza 2 (PCR) Not detected Parainfluenza 3 (PCR) Detected H Parainfluenza 4 (PCR) Not detected RSV (PCR) Not detected Entero/Rhino (PCR) Not detected Assessment & Plan Assessment & Plan narrative: 43yo female with past medical history of COPD, ch ronic hypoxic respiratory failure with home oxygen to 3 L at night and as needed, obstructive sleep apnea on CPAP machine, migraines, bipolar disorder, anxiety, GERD, and chronic tobacco dependence presented to emergency department with shortness of breath and cough. She is admitted as observation for acute COPD exacerbation. 1. Acute COPD exacerbation -Likely due to Parainfluenza virus -PCR panel this am positive for parainfluenza virus -chest x-ray and CTA PE without evidence of pneumonia or other infectious process, however concerning for bilateral mediastinal lymphadenopathy -Will switch steroids to Prednisone 60mg PO Daily. Patient will likely need tapering of steroids given >5 day therapy as of today -continue Levaquin IV 750 mg IV daily until blood/sputum cultures are back -duo nebs q.4 hours scheduled as well as albuterol q.2 hours as needed -hold patient's COPD home regimen at this time, and resume when patient is more stable 2. Chest tightness, present on admission, resolved -Likely COPD exacerbation related -Monitor 3. Tobacco dependence, chronic, present on admission -patient has cut down to 5 cigarettes per day -nicotine patch 4. Obstructive sleep apnea -on CPAP use at home, continue 5. GERD -continue omeprazole 6. Bipolar disorder -continue olanzapine and venlafaxine 7. Chronic migraines -continue grgovnoylg-sdxmjaeksutrw-bjvatfxm home regimen 8. Moderate anxiety -continue Xanax home regimen Patient is full code DVT prophylaxis with Lovenox subQ Dispo: Patient is here with acute COPD exacerbation and is being treated with IV steroids and antibiotics, as well as frequent duo nebs.
--- NOTE | 2018-09-18 15:07 | CM.IDA ---
Initial DCP Assessment Note: Pt is a 43 yo female, resident of [place]. Pt under observation for COPD exacerbation, requiring neb treatments, IV steroids and IV abx. PCP: Vernell Alcantara Payer: [facility] [employer] Options/Medicaid Reviewed chart. Met w/pt, explained role. She explains she would like to go home soon but understands the need to remain admitted until tomorrow. Pt has 6 children total, she had her first baby in [place] when she was 14 yo. Currently, her 13, 4, and 3 yo are living w/her. Pt denies DC or SW needs, she sees a counselor at [facility], [place], whenever I need to and pt feels her anxiety is well controlled by Xanax. Pt adds she has good family support from sister and spouse who live w/her, especially when pt is not able, functionally, to complete ADLs or chores, or running after kids. Pt denies SW needs and is appreciative of the visit. DC likely Thursday, home w/family and close outpt f/u. SAMINA Khan Discharge Planning/Care Management CM Discharge Assessment Start: 09/18/18 15:02 Freq: Status: Active Protocol: Document 09/18/18 15:02 BRONWYN (Rec: 09/18/18 15:06 BRONWYN [id number]) Discharge Planning Assessment Assigned Energy Technician SAMINA Leggett DPOA/Assigned Designee Name Moreno Billings, spouse Contact Information [phone] Advance Directives? No History Provided By Patient Prior Living Arrangements Apartment/Condo Household Members spouse children Type of transporation used prior to Drives own vehicle admit Independent with ADL's Yes Is patient alert and oriented? Yes Discharge Plan Home Transportation Arrangement Family Referrals Initiated None needed Whiteboard Updated in Patient Room with Yes name and ext. # of Energy Technician Review Status In Process
--- NOTE | 2018-09-18 15:38 | PC.NURSE ---
Resp: Very anxious this am w/freq loose sounding cough. Ribs sore from coughing. RR up to 38. O2 sats fluctuate from 88-92, usually about 90%. Made MD aware and parameter changed for 90% for O2 sats on 3L NC. Pt given her xanax, med for cough and headache. she was finally able to sleep for a short period of time and awoke feeling better and her sats have more consistently been in the low 90's. Occ they have even been as high as 96%. Has declined breathing treatments as they cause her to have more coughing and this makes her feel worse. Resting better this afternoon. Has been worried about her 2 young children at home. Cont w/poc.
[2018-09-18] MEDS: levoFLOXacin 750 MG/150 ML PIGGYBACK 100 MG IV (16:18)
[2018-09-18] MEDS: NICOTINE 7 MG PATCH TOP (16:18)
[2018-09-18] MEDS: ALBUTEROL/IPRATROPIUM 3 ML AMPUL INH (18:05)
[2018-09-19] VITALS (7 sets, daily range): BP systolic 133–176; BP diastolic 92–107; PULSE 78–95; RESP 18–22; TEMP 36.3–36.4; O2SAT 91–97
[2018-09-19] MEDS: BUTALB/APAP/CAFFEINE 50/325/40 TABLET 1 EACH PO ×3 (00:56→09:35)
[2018-09-19] MEDS: BENZONATATE 100 MG CAPSULE 200 MG PO (05:36)
[2018-09-19] MEDS: PANTOPRAZOLE 20 MG TABLET PO (05:36)
[2018-09-19 06:00] LABS: Add Manual Diff / Slide Review NO; Basophils Absolute Auto 0 /uL (0-100); Basophils Percent Auto 0.2 % (0-2); Eosinophils Absolute Auto 0 /uL (0-450); Eosinophils Percent Auto 0.2 % (2-4); Hematocrit 47.4 % (36-46); Hemoglobin 15.9 g/dL (12.0-16.0); Lymphocytes Absolute Auto 2300 /uL (1100-4500); Lymphocytes Percent Auto 33.1 % (25-40); Mean Corpuscular HGB Conc 33.6 % (30-36); Mean Corpuscular Hemoglobin 31.8 PG (26-34); Mean Corpuscular Volume 94.7 fL (80-100); Monocytes Absolute Auto 1100 /uL (0-900); Monocytes Percent Auto 15.5 % (3-14); Neutrophils Absolute Auto 3600 /uL (1500-7000); Platelet Count 140 X10^3/uL (150-400); Red Blood Cell Count 5.01 X10^6/uL (4.0-5.2); Red Cell Distribution Width 13.9 % (11.6-14.8); White Blood Cell Count 7.1 X10^3/uL (4.5-11.0)
[2018-09-19 06:02] LABS: BUN Creatinine Ratio 16.7 (6-22); Blood Urea Nitrogen 10 mg/dL (7-17); Calcium 8.6 mg/dL (8.4-10.2); Carbon Dioxide 34 mmol/L (22-32); Chloride 99 mmol/L (98-107); Estimated Glomerular Filt Rate > 60.0 mL/min (>60); Glucose 86 mg/dL (70-100); HEMOLYSIS 18 (0-50); Potassium 3.6 mmol/L (3.4-5.1); Sodium 138 mmol/L (137-145)
[2018-09-19] MEDS: ALBUTEROL/IPRATROPIUM 3 ML AMPUL INH (07:56)
--- NOTE | 2018-09-19 08:51 | PM.DS.1 ---
History of Present Illness Date Patient Seen: 09/19/18 Chief complaint: says has pneumonia, getting worse Narrative: 3yo female with past medical history of COPD, chronic hypoxic respiratory failure with home oxygen to 3 L at night and as needed, obstructive sleep apnea on CPAP machine, migraines, bipolar disorder, anxiety, GERD, and chronic tobacco dependence presented to emergency department with shortness of breath and cough. Patient states she started developing increasing productive cough and shortness of breath about 1 week ago. She felt increasing need of using oxygen at home, as well as nebulizer treatments, however her condition did not improve. Four days ago patient came to emergency department, where she was diagnosed with bronchitis and sent home with nebulizers, azithromycin, and prednisone. Patient states she came home and followed medication directions thoroughly, but continued to worsen. It got to a point where patient was not even able to walk without getting short of breath. She has also developed chest tightness roughly 2 days ago, that has been on and off and may or may not be associated with her coughing spells. Patient's cough turned from green mucus production to a white frothy mucus production, and is increasing in frequency. Patient would have coughing spells every 10-15 minutes, and was witnessed to have associated loss of consciousness on 2 occasions in the past 2 days due to hypoxia. Loss of consciousness would only last 3-5 seconds, and patient never injured her head while doing so-she was always caught by family prior to landing on the floor. No seizure-like activity was ever noted. When patient came to, there was mild confusion which resolved within seconds. Patient denies any fevers how ever states she has been feeling chills. Denies any blurry vision however has been feeling dizzy and lightheaded as well as chronic headache. Patient denies any abdominal pain, diarrhea, constipation, but had 1 episode of and NBNB vomiting earlier this morning. Denies any symptoms. Patient states that 2 of her children have been experiencing URI like symptoms for the past week, and her has been diagnosed with bronchitis in the past week. Denies any recent traveling. In ED, patient's vitals revealed temperature 98.4? F, respirations between 20-30, pulse 90, blood pressure 123/70, saturating 92-90% on room air. ABG was performed which showed pH of 7.45, CO2 29, and O2 of 70. Lab work revealed WBC of 8.3, hemoglobin 15.9, hematocrit 46.4, platelets 170. CMP was pertinent for glucose of 168, otherwise benign. chest x-ray revealed no acute cardiopulmonary disease. CTA PE was then performed, which revealed no acute pulmonary embolus, however bilateral hilar mediastinal adenopathy most likely reactive to infectious or inflammatory process, and stable hepatic steatosis. Patient was given multiple nebulizer treatments, as well as 125 mg IV Solu-Medrol, and 750 mg IV Levaquin. Patient was also given 1 mg IV lorazepam for anxiety. Her breathing has moderately improved with the above treatment, however she continued to have disturbing cough and tachypnea, as well as residual expiratory wheezing. She was therefore admitted as observation for acute COPD exacerbation. Discharge Providers Date of admission: 09/17/18 14:59 Discharge Date: 09/19/18 Primary care physician: MINI Daigle Consults: 09/17/18 12:13 Consult to Respiratory Therapy Evaluate & Treat Comment: Physician Instructions: Evaluate and treat Discharge provider: Mindy Kauffman MD Summary Discharge Diagnosis: Acute on chronic hypoxic respiratory failure, present on admission COPD Upper respiratory infections secondary to parainfluenza virus Morbid obesity Obstructive sleep apnea Bipolar affective disorder GERD Tobacco dependence Depression Anxiety Hospital Course: Patient was admitted to the hospital for progressive shortness of breath wheezing and cough. She received multiple nebulizer treatments. Her chest x-ray was negative. Her CT angio was negative. She did have a respiratory viral panel which was positive for parainfluenza virus. She remained on steroids. She improved with nebulizers. The patient was afebrile. She continues to have a cough although it is nonproductive. She continues to have some minimal wheezing but is tolerating her usual 3 L of oxygen. Patient is not back to baseline but has improved significantly. She is anxious to discharge home. The patient notes she has a follow-up appointment with her anatomy and physiology instructor on October 01. She will follow up with her PCP next week. Patient was deemed appropriate for discharge and arrangements were made to discharge her home. Status at Discharge Cognitive/behavioral status at discharge: oriented Functional status at discharge: independent ambulation Overall status at discharge: patient is back to baseline Time Spent with Patient Less than 30 minutes Exam Vital Signs (past 8 hours): - 09/19/18 00:55 09/19/18 04:43 09/19/18 05:45 Temperature 97.5 F L 97.5 F L Pulse Rate 95 H 78 Respiratory Rate 18 18 Blood Pressure 161/92 H 176/107 H 149/94 H Pulse Oximetry 93 97 09/19/18 07:56 09/19/18 08:00 Temperature 97.4 F L Pulse Rate 80 82 Respiratory Rate 22 20 Blood Pressure 133/98 H Pulse Oximetry 95 96 Oxygen Delivery Method Nasal Cannula Oxygen Flow Rate 3 Narrative Exam Narrative: Pleasant female Lungs: Decreased breath sounds with end-expiratory wheezing Cardiac exam: Regular rate and rhythm normal S1-S2 Abdomen: Soft nontender nondistended Extremities: No edema Objective Labs Result Diagrams: 09/19/18 05:32 09/19/18 05:32 Labs: Laboratory Results - last 24 hr 09/19/18 09/19/18 05:32 05:32 WBC 7.1 RBC 5.01 Hgb 15.9 Hct 47.4 H MCV 94.7 MCH 31.8 MCHC 33.6 RDW 13.9 Plt Count 140 L Neut % (Auto) 51.0 D Lymph % (Auto) 33.1 Wells % (Auto) 15.5 H Eos % (Auto) 0.2 L Baso % (Auto) 0.2 Neut # (Auto) 3600 Lymph # (Auto) 2300 [place] # (Auto) 1100 H Eos # (Auto) 0 Baso # (Auto) 0 Sodium 138 Potassium 3.6 Chloride 99 Carbon Dioxide 34 H BUN 10 Creatinine 0.60 Estimated GFR > 60.0 BUN/Creatinine Ratio 16.7 Glucose 86 Calcium 8.6 Discharge Plan Discharge Plan Discharge Problem: COPD exacerbation Patient Disposition: Home Discharge Med Rec/Prescriptions Prescriptions: New dextromethorphan-guaifenesin 10-100 mg/5 mL Syrup 5 ml PO Q6H PRN (Reason: Cough) Qty: 50 RF: 0 benzonatate 100 mg Capsule 200 mg PO TID PRN (Reason: Cough) Qty: 15 RF: 0 Continued alprazolam [Xanax] 1 mg tablet 1 mg PO TID PRN (Reason: Anxiety) RF: 0 albuterol sulfate [ProAir HFA] 90 mcg/actuation Hfa Aerosol Inhaler 1 - 2 puff INHALATION Q4-6H PRN (Reason: shortness of breath) RF: 0 Spiriva with HandiHaler 18 mcg Capsule, W/Inhalation Device 1 cap INHALATION DAILY RF: 0 vlvgavwspk-ngyzffeuggche-fbhc 50-300-40 mg capsule 1 tab PO Q4H PRN (Reason: Migraine Headache) RF: 0 Dulera 100-5 mcg/actuation Hfa Aerosol Inhaler 2 puff INHALATION DAILY RF: 0 ipratropium-albuterol 0.5 mg-3 mg(2.5 mg base)/3 mL solution for nebulization 3 ml Inhalation Q6H PRN (Reason: Cough) RF: 0 venlafaxine 150 mg capsule,extended release 24hr 150 mg PO DAILY RF: 0 olanzapine 10 mg tablet 15 mg PO DAILY RF: 0 loratadine 10 mg tablet 10 mg PO DAILY RF: 0 esomeprazole magnesium 20 mg capsule,delayed release(DR/EC) 20 mg PO DAILY RF: 0 azithromycin 250 mg tablet See Rx Instructions .ROUTE .COMPLEX Qty: 6 RF: 0 prednisone 50 mg tablet 50 mg PO DAILY Qty: 7 RF: 0 nicotine 21 mg/24 hr patch 24 hour 1 patch topical DAILY RF: 0 codeine-guaifenesin [Guaiatussin AC] 10-100 mg/5 mL liquid 10 ml PO Q6H PRN (Reason: Cough) RF: 0 Follow up/Referrals: Vernell Alcantara ARNP [Primary Care Provider] - Provider Discharge Instructions Diet: Low-sodium Activity: As tolerated Oxygen: Continue 3 L of oxygen Discharge Data Primary Care Provider: Vernell Alcantara Attending Provider: Melanie Beltran Admit Date/Time: 09/17/18 14:59
[2018-09-19] MEDS: ALPRAZolam 0.25 MG TABLET 1 MG PO (09:33)
[2018-09-19] MEDS: guaiFENesin/DEXTROMETH Syrup 5 ML SYRUP PO (09:33)
[2018-09-19] MEDS: ENOXAPARIN 40 MG/0.4 ML SYRINGE SUBCUT (09:34)
[2018-09-19] MEDS: OLANZapine 2.5 MG TABLET 15 MG PO (09:34)
[2018-09-19] MEDS: LORATADINE 10 MG TABLET PO (09:34)
[2018-09-19] MEDS: predniSONE 20 MG TABLET 60 MG PO (09:34)
[2018-09-19] MEDS: VENLAFAXINE ER 75 MG CAP 150 MG PO (09:35)
--- NOTE | 2018-09-19 13:12 | CM.DPC ---
DCP Discharge Home Per MD, pt is medically stable to d/c home today with no identified barriers to discharge and MRI came back clear with symptoms seeming to be due to migraine. Per RN, no concerns at this time. Plan: Patient to d/c home today via family POV and no SW needs at this time. SAMINA Davis
--- NOTE | 2018-09-19 13:48 | PC.NURSE ---
Discharge: Pt feels ready to d/c home. Has 2 young children at home and they have been sick as well. She is worried about them. Her spouse has also been sick and she feels she should get home to help him as well. She knows she needs to care for self and she will do so. She has been feeling much better, got some sleep during the night after she had an episode of sob in the early hours. Has home O2 and cpap at home and uses them. Spouse came w/out a portable O2 tank and same was given for them to use while going home. She knows it will only last a couple of hours. She has a concentrator at home. Alicia will poultry picking machine tender the tank at her house. Reviewed d/c instructions. Rx was sent to [facility]. She will make her f/u appt on since thursday is a holiday. Questions answered. Pt d/c home via auto w/spouse and O2 tank.
== END 2018-09-19 11:00 | disposition home or self-care (01) ==
LOC: ED 12:14 → AC 14:59
PROVIDERS: Admitting Provider Internal Medicine; Emergency Provider Nurse Practitioner Family; PCP Nurse Practitioner Family; Visit Provider Internal Medicine
DX: J96.21 Acute and chronic respiratory failure with hypoxia (principal); J44.9 Chronic obstructive pulmonary disease, unspecified; B34.8 Other viral infections of unspecified site; F17.210 Nicotine dependence, cigarettes, uncomplicated; G47.33 Obstructive sleep apnea (adult) (pediatric); K21.9 Gastro-esophageal reflux disease without esophagitis; F32.9 Major depressive disorder, single episode, unspecified; F41.9 Anxiety disorder, unspecified
CPT/HCPCS: 36415; 36591; 36600; 71045; 71275; 80048; 80053; 82550; 82805; 83880; 84484; 85025; 87040; 87070; 87205; 87633; 93005; 93010; 94618; 94640; 94760; 96365; 96366; 96372; 96375; 96376; 99283; 99285; 99406; G0378; J1650; J1885; J1956; J2060; J2920; J2930

== ENCOUNTER 2018-12-10 11:55 | Emergency (ER) | payer OTHER, MEDICAID, SELFPAY ==
[2018-09-17 16:39] VITALS: BMI 43.9
[2018-12-10 12:08] VITALS: BP 162/97; PULSE 84; RESP 14; TEMP 36.9; O2SAT 94
--- NOTE | 2018-12-10 12:24 | DI.RAD.S_ITS ---
PROCEDURE: XR CHEST 2V INDICATIONS: copd, right upper quadrant / right low anterior chest pain. TECHNIQUE: 2 views of the chest were acquired. COMPARISON: [facility], CR, XR CHEST 1V, 09/17/2018, 13:14. FINDINGS: Surgical changes and devices: None. Lungs and pleura: Prominent perihilar interstitial markings are identified. No definite pulmonary consolidation is appreciated. No large effusion or pneumothorax is evident. Mediastinum: Mediastinal contours are normal. Heart size is enlarged. Bones and chest wall: No suspicious bony abnormalities. Soft tissues appear unremarkable. IMPRESSION: Cardiomegaly with moderate vascular congestion is suspicious for developing pulmonary edema. Please correlate clinically. Dictated by: Shay West M.D. on 12/10/2018 at 11:55 Approved by: Shay West M.D. on 12/10/2018 at 11:58
--- NOTE | 2018-12-10 12:35 | ED.URI ---
HPI - URI/Sore Throat General Chief Complaint: Upper Respiratory Symptoms Stated Complaint: coughing,not sleeping,R rib pain when coughing Time Seen by Provider: 12/10/18 12:26 Source: patient Mode of arrival: ambulatory Limitations: no limitations History of Present Illness HPI Narrative: Patient is a 43-year-old female. Has a history of COPD. She states that she is on oxygen at home. Has multiple inhalers at home. She reports that for the past couple days she has had coughing. She states that is slightly productive but no change in color the sputum. She has not had any increase in oxygen use. She has noticed shortness of breath. States the coughing is keeping her up at night. She states she is having pain on the right side of her chest with the coughing. She is also noticing bilateral lower extremity swelling. No fevers. Related Data Home Medications Medication Instructions Recorded Confirmed Spiriva with HandiHaler 1 cap INHALATION DAILY 09/24/17 12/10/18 albuterol sulfate [ProAir HFA] 1 - 2 puff INHALATION Q4-6H PRN 09/24/17 12/10/18 alprazolam [Xanax] 1 mg PO TID PRN 09/24/17 12/10/18 zzctqcwxgw-vdnfxskvrbtix-oyma 1 tab PO Q4H PRN 09/24/17 12/10/18 esomeprazole magnesium 20 mg PO DAILY 09/13/18 12/10/18 ipratropium-albuterol 3 ml INHALATION Q6H PRN 09/13/18 12/10/18 loratadine 10 mg PO DAILY 09/13/18 12/10/18 olanzapine 15 mg PO DAILY 09/13/18 12/10/18 nicotine 1 patch TOPICAL DAILY 09/17/18 12/10/18 mometasone-formoterol [Dulera] 2 puff INHALATION BID 12/10/18 12/10/18 venlafaxine 225 mg PO DAILY 12/10/18 12/10/18 Previous Rx's Medication Instructions Recorded furosemide [Lasix] 20 mg PO DAILY 10 Days #10 tab 12/10/18 prednisone 40 mg PO DAILY 7 Days #14 tab 12/10/18 Allergies Allergy/AdvReac Type Severity Reaction Status Date / Time Penicillins [PENICILLINS] Allergy Unknown Verified 12/10/18 12:12 Review of Systems Constitutional Denies fever(s) Cardiovascular Reports chest pain (Right-sided chest wall), Denies leg edema, Denies palpitations, Reports dyspnea and Reports dyspnea on exertion Respiratory Reports dyspnea and Reports dyspnea on exertion Gastrointestinal Gastrointestinal: Denies abdominal pain, Denies nausea and Denies vomiting Genitourinary Denies dysuria Musculoskeletal Denies abnormal gait, Denies myalgias and Denies arthralgias Integumentary/Breasts Denies lesions and Denies rash Neurologic Denies abnormal gait Endocrine Denies palpitations Hematologic/Lymphatic Denies easy bleeding and Denies easy bruising [facility] Medical History Acute bronchitis with chronic obstructive pulmonary disease (COPD) (Acute) Anxiety (Chronic) Bipolar 1 disorder (Chronic) COPD (chronic obstructive pulmonary disease) (Chronic) Chronic respiratory failure with hypoxia (Chronic) Depression (Chronic) GERD (gastroesophageal reflux disease) (Chronic) H/O: hysterectomy (Chronic) Migraine (Chronic) Sleep apnea (Chronic) Tobacco dependence (Chronic) Vaginal prolapse (Chronic) Social History household members: spouse and children Smoking Status: Current every day smoker Exam Initial Vital Signs Initial Vital Signs: Vital Signs Temperature 98.5 F 12/10/18 12:08 Pulse Rate 84 12/10/18 12:08 Respiratory Rate 14 12/10/18 12:08 Blood Pressure 162/97 H 12/10/18 12:08 Pulse Oximetry 94 12/10/18 12:08 Const General: cooperative, well developed and well groomed Orientation: alert, awake and oriented x3 HENMT Head: normal to inspection and normocephalic Chest Chest: tenderness (Right-sided chest wall) Resp Effort & Inspection: normal respiratory effort Auscultation: clear to auscultation bilaterally Cardio Rate: regular rate Rhythm: regular rhythm GI Inspection: non-distended Palpation: soft and No firm Skin Lesions: no lesions Rashes: no rashes Neuro General: alert and awake Cognition: normal cognition Speech: speech normal Extrem General: normal to inspection, capillary refill normal and edema (Bilateral lower extremity 1+ pitting edema ankles to knees) Psych Appearance: grossly normal and well kempt Scores GCS Domi coma scale eye opening: Spontaneous Mcclelland coma scale verbal response: Orientated Domi coma scale motor response: Obey commands Mcclelland coma scale total score: 15 Course Orders Ordered: ED Orders 12/10/18 12:23 EKG-12 Lead Stat 12/10/18 12:24 Chest [XR chest 2V] Stat 12/10/18 12:45 B Type Natriuretic Peptide Stat Complete Blood Count AUTO DIFF Stat Partial Thromboplastin Time Stat Prothrombin Time INR Stat 12/10/18 13:10 Comprehensive Metabolic Panel Stat Lipase Stat Troponin & CK Cardiac Panel Stat Vital Signs - 8 hr 12/10/18 12:08 12/10/18 13:34 Temperature 98.5 F Pulse Rate 84 91 H Respiratory Rate 14 26 H Blood Pressure 162/97 H Blood Pressure [Left Arm] 138/107 H Pulse Oximetry 94 95 MDM - URI/Sore Throat Lab Data Attestation: I reviewed the patient's lab results. Result diagrams: 12/10/18 12:45 12/10/18 13:10 Lab Results 12/10/18 12/10/18 12/10/18 Range/Units 12:45 12:45 12:45 WBC 8.6 (4.5-11.0) X10^3/uL RBC 4.62 (4.0-5.2) X10^6/uL Hgb 14.8 (12.0-16.0) g/dL Hct 43.1 (36-46) % MCV 93.3 (80-100) fL MCH 32.0 (26-34) PG MCHC 34.4 (30-36) % RDW 13.9 (11.6-14.8) % Plt Count 172 (150-400) X10^3/uL Neut % (Auto) 66.0 (50-75) % Lymph % (Auto) 25.9 (25-40) % [place] % (Auto) 6.4 (3-14) % Eos % (Auto) 1.0 L (2-4) % Baso % (Auto) 0.7 (0-2) % Neut # (Auto) 5700 (3264-8077) /uL Lymph # (Auto) 2200 (4020-3667) /uL [place] # (Auto) 500 (0-900) /uL Eos # (Auto) 100 (0-450) /uL Baso # (Auto) 100 (0-100) /uL PT 10.2 (10.1-12.7) SECONDS INR 0.9 (0.9-1.3) APTT 29 (26.4-36.2) SECONDS Sodium (137-145) mmol/L Potassium (3.4-5.1) mmol/L Chloride (98-107) mmol/L Carbon Dioxide (22-32) mmol/L BUN (7-17) mg/dL Creatinine (0.52-1.04) mg/dL Estimated GFR (>60) mL/min BUN/Creatinine Ratio (6-22) Glucose (70-100) mg/dL Calcium (8.4-10.2) mg/dL Total Bilirubin (0.2-1.3) mg/dL AST (14-36) IU/L ALT (9-52) IU/L Alkaline Phosphatase (38-126) U/L Total Creatine Kinase (30-135) U/L CK-MB (CK-2) CK-MB (CK-2) Rel Index Troponin I (0.01-0.034) ng/mL B-Natriuretic Peptide < 100 (<100) Total Protein (6.3-8.2) g/dL Albumin (3.5-5.0) g/dL Globulin (1.7-4.1) g/dL Albumin/Globulin Ratio (1.0-2.8) Lipase (23-300) U/L / Range/Units 13:10 WBC (4.5-11.0) X10^3/uL RBC (4.0-5.2) X10^6/uL Hgb (12.0-16.0) g/dL Hct (36-46) % MCV (80-100) fL MCH (26-34) PG MCHC (30-36) % RDW (11.6-14.8) % Plt Count (150-400) X10^3/uL Neut % (Auto) (50-75) % Lymph % (Auto) (25-40) % [place] % (Auto) (3-14) % Eos % (Auto) (2-4) % Baso % (Auto) (0-2) % Neut # (Auto) (7074-7919) /uL Lymph # (Auto) (4219-1284) /uL [place] # (Auto) (0-900) /uL Eos # (Auto) (0-450) /uL Baso # (Auto) (0-100) /uL PT (10.1-12.7) SECONDS INR (0.9-1.3) APTT (26.4-36.2) SECONDS Sodium 140 (137-145) mmol/L Potassium 3.8 (3.4-5.1) mmol/L Chloride 103 (98-107) mmol/L Carbon Dioxide 30 (22-32) mmol/L BUN 8 (7-17) mg/dL Creatinine 0.50 L (0.52-1.04) mg/dL Estimated GFR > 60.0 (>60) mL/min BUN/Creatinine Ratio 16.0 (6-22) Glucose 100 (70-100) mg/dL Calcium 8.4 (8.4-10.2) mg/dL Total Bilirubin 0.3 (0.2-1.3) mg/dL AST 44 H (14-36) IU/L ALT 58 H (9-52) IU/L Alkaline Phosphatase 89 (38-126) U/L Total Creatine Kinase 62 (30-135) U/L CK-MB (CK-2) TNP CK-MB (CK-2) Rel Index TNP Troponin I < 0.012 (0.01-0.034) ng/mL B-Natriuretic Peptide (<100) Total Protein 6.5 (6.3-8.2) g/dL Albumin 3.6 (3.5-5.0) g/dL Globulin 2.9 (1.7-4.1) g/dL Albumin/Globulin Ratio 1.2 (1.0-2.8) Lipase 76 (23-300) U/L Urine Dip Bedside Urine Glucose Negative Bedside Urine Bilirubin - Negative Bedside Urine Ketone - Negative Urine Specific [place] 1.015 Bedside Urine Occult Blood - Negative Bedside Urine pH 6.0 Bedside Urine Protein - Negative Bedside Urine Urobilinogen +/- 1mg Bedside Urine Nitrite - Negative Bedside Urine Leukocytes - Negative Esterase Imaging Data Chest x-ray: Radiologist's impression: [address] [address] XRay Report Signed Patient: Alyse Martin RMR#: [id number] : 1975Acct:[id number] Age/Sex: 43 / FDate of Service: 12/10/18 Loc: ED Accession Number: [id number] Procedure: XR chest 2V Ordering Provider: Frank Spain PROCEDURE: XR CHEST 2V INDICATIONS: copd, right upper quadrant / right low anterior chest pain. TECHNIQUE: 2 views of the chest were acquired. COMPARISON: [facility], CR, XR CHEST 1V, 09/17/2018, 13:14. FINDINGS: Surgical changes and devices: None. Lungs and pleura: Prominent perihilar interstitial markings are identified. No definite pulmonary consolidation is appreciated. No large effusion or pneumothorax is evident. Mediastinum: Mediastinal contours are normal. Heart size is enlarged. Bones and chest wall: No suspicious bony abnormalities. Soft tissues appear unremarkable. IMPRESSION: Cardiomegaly with moderate vascular congestion is suspicious for developing pulmonary edema. Please correlate clinically. Dictated by: Shay West M.D. on 12/10/2018 at 11:55 Approved by: Shay West M.D. on 12/10/2018 at 11:58 ECG Data Attestation: I personally reviewed and interpreted this ECG as follows: Prior ECG tracings: not available for review Interpretation: Sinus rhythm Ventricular rate is 85 Normal axis Normal QRS Normal QTC No ST T wave changes MDM Narrative Medical decision making narrative: Patient is not in any respiratory distress. Chest x-ray shows no signs of pneumonia. She does have bilateral lower extremity swelling which she states is new. She has no increase in oxygen requirement. Her right-sided chest pain is musculoskeletal. EKG is unremarkable. I have lower suspicion for COPD exacerbation him more suspicion for of fluid overload potentially causing her respiratory issues. Will send her home with a few days of Lasix. Will also send her home with prednisone. She was instructed to do that Lasix for the next couple days if her symptoms do not improve or they worsen that they could start the steroids. She was also instructed to contact her primary doctor for follow-up. She expressed understanding and agreement with plan. Discharge Plan Departure Patient Disposition: Home Clinical Impression: Edema, peripheral COPD (chronic obstructive pulmonary disease) Qualifiers: COPD type: unspecified COPD Qualified Code(s): J44.9 - Chronic obstructive pulmonary disease, unspecified Discharge Date/Time: 12/10/18 14:18 Interventions: ED Discharge Assessment Last Done: 12/10/18 14:17 Instructions: DI for Peripheral Edema -- Bilateral Activity Restrictions/Additional Instructions: Continue all of your medications as directed. On Thursday contact your primary provider for a follow-up. Return to the emergency department for any new or worsening symptoms Prescriptions: New prednisone 20 mg tablet 40 mg PO DAILY 7 Days Qty: 14 RF: 0 furosemide [Lasix] 20 mg tablet 20 mg PO DAILY 10 Days Qty: 10 RF: 0 No Action alprazolam [Xanax] 1 mg tablet 1 mg PO TID PRN (Reason: Anxiety) RF: 0 albuterol sulfate [ProAir HFA] 90 mcg/actuation Hfa Aerosol Inhaler 1 - 2 puff INHALATION Q4-6H PRN (Reason: shortness of breath) RF: 0 Spiriva with HandiHaler 18 mcg Capsule, W/Inhalation Device 1 cap INHALATION DAILY RF: 0 loxogtuxac-qsjwtutonhvfp-brqd 50-300-40 mg capsule 1 tab PO Q4H PRN (Reason: Migraine Headache) RF: 0 ipratropium-albuterol 0.5 mg-3 mg(2.5 mg base)/3 mL solution for nebulization 3 ml Inhalation Q6H PRN (Reason: Cough) RF: 0 olanzapine 10 mg tablet 15 mg PO DAILY RF: 0 loratadine 10 mg tablet 10 mg PO DAILY RF: 0 esomeprazole magnesium 20 mg capsule,delayed release(DR/EC) 20 mg PO DAILY RF: 0 nicotine 21 mg/24 hr patch 24 hour 1 patch topical DAILY RF: 0 venlafaxine 225 mg tablet extended release 24hr 225 mg PO DAILY RF: 0 Dulera 200-5 mcg/actuation HFA aerosol inhaler 2 puff inhalation BID RF: 0 Referrals: Vernell Alcantara ARNP [Primary Care Provider] -
[2018-12-10 12:53] LABS: Add Manual Diff / Slide Review NO; Basophils Absolute Auto 100 /uL (0-100); Basophils Percent Auto 0.7 % (0-2); Eosinophils Absolute Auto 100 /uL (0-450); Hematocrit 43.1 % (36-46); Hemoglobin 14.8 g/dL (12.0-16.0); Lymphocytes Absolute Auto 2200 /uL (1100-4500); Lymphocytes Percent Auto 25.9 % (25-40); Mean Corpuscular HGB Conc 34.4 % (30-36); Mean Corpuscular Volume 93.3 fL (80-100); Monocytes Absolute Auto 500 /uL (0-900); Monocytes Percent Auto 6.4 % (3-14); Neutrophils Absolute Auto 5700 /uL (1500-7000); Platelet Count 172 X10^3/uL (150-400); Red Blood Cell Count 4.62 X10^6/uL (4.0-5.2); Red Cell Distribution Width 13.9 % (11.6-14.8); White Blood Cell Count 8.6 X10^3/uL (4.5-11.0)
[2018-12-10 13:02] LABS: INR 0.9 (0.9-1.3); Prothrombin Time 10.2 SECONDS (10.1-12.7)
[2018-12-10 13:04] LABS: PTT Partial Thromboplastin Tim 29 SECONDS (26.4-36.2)
[2018-12-10 13:25] LABS: B Type Natriuretic Peptide < 100 (<100)
[2018-12-10 13:34] VITALS: BP 138/107; PULSE 91; RESP 26; O2SAT 95
[2018-12-10 13:36] LABS: Alanine Aminotransferase 58 IU/L (9-52); Albumin 3.6 g/dL (3.5-5.0); Albumin Globulin Ratio 1.2 (1.0-2.8); Alkaline Phosphatase 89 U/L (38-126); Aspartate Aminotransferase 44 IU/L (14-36); Bilirubin Total 0.3 mg/dL (0.2-1.3); Blood Urea Nitrogen 8 mg/dL (7-17); Calcium 8.4 mg/dL (8.4-10.2); Carbon Dioxide 30 mmol/L (22-32); Chloride 103 mmol/L (98-107); Creatine Kinase 62 U/L (30-135); Estimated Glomerular Filt Rate > 60.0 mL/min (>60); Globulin 2.9 g/dL (1.7-4.1); Glucose 100 mg/dL (70-100); HEMOLYSIS < 15 (0-50); Lipase 76 U/L (23-300); Potassium 3.8 mmol/L (3.4-5.1); Sodium 140 mmol/L (137-145); Total Protein 6.5 g/dL (6.3-8.2)
[2018-12-10 13:48] LABS: Troponin I < 0.012 ng/mL (0.01-0.034)
== END 2018-12-10 14:18 | disposition home or self-care (01) ==
PROVIDERS: Nurse Practitioner Family; Emergency Provider Emergency Medicine; PCP Nurse Practitioner Family
DX: J44.9 Chronic obstructive pulmonary disease, unspecified (principal)
CPT/HCPCS: 36415; 36591; 71046; 80053; 81003; 82550; 83690; 83880; 84484; 85025; 85610; 85730; 93005; 93010; 99283; 99285

== ENCOUNTER 2018-12-31 12:31 | Emergency (ER) | payer OTHER, MEDICAID, SELFPAY ==
[2018-09-17 16:39] VITALS: BMI 43.9
[2018-12-31 12:42] VITALS: BP 143/87; PULSE 78; RESP 18; TEMP 36.9; O2SAT 96
--- NOTE | 2018-12-31 12:42 | DI.RAD.S_ITS ---
PROCEDURE: XR CHEST 1V INDICATIONS: chest pain TECHNIQUE: One view of the chest was acquired. COMPARISON: [facility], CT, CT ANGIO CHEST PE PROTOCOL, 09/17/2018, 13:22. [facility], CR, XR CHEST 1V, 09/17/2018, 13:14. FINDINGS: Surgical changes and devices: None. Lungs and pleura: Lungs are clear. No pleural effusions or pneumothorax. Mediastinum: Mediastinal contours appear normal. Heart size is normal. Bones and chest wall: No suspicious bony lesions. Overlying soft tissues appear unremarkable. IMPRESSION: No acute cardio pulmonary disease. Dictated by: Antonieta Mayorga M.D. on 12/31/2018 at 13:43 Approved by: Antonieta Mayorga M.D. on 12/31/2018 at 13:44
[2018-12-31 13:04] LABS: Add Manual Diff / Slide Review NO; Basophils Absolute Auto 100 /uL (0-100); Basophils Percent Auto 0.8 % (0-2); Eosinophils Absolute Auto 100 /uL (0-450); Eosinophils Percent Auto 1.7 % (2-4); Hematocrit 43.1 % (36-46); Hemoglobin 15.1 g/dL (12.0-16.0); Lymphocytes Absolute Auto 2500 /uL (1100-4500); Lymphocytes Percent Auto 31.1 % (25-40); Mean Corpuscular Hemoglobin 32.5 PG (26-34); Mean Corpuscular Volume 92.7 fL (80-100); Monocytes Absolute Auto 600 /uL (0-900); Monocytes Percent Auto 7.7 % (3-14); Neutrophils Absolute Auto 4700 /uL (1500-7000); Neutrophils Percent Auto 58.7 % (50-75); Platelet Count 217 X10^3/uL (150-400); Red Blood Cell Count 4.65 X10^6/uL (4.0-5.2); Red Cell Distribution Width 13.6 % (11.6-14.8); White Blood Cell Count 7.9 X10^3/uL (4.5-11.0)
[2018-12-31 13:10] LABS: Prothrombin Time 11.3 SECONDS (10.1-12.7)
--- NOTE | 2018-12-31 13:11 | ED_ITS ---
HPI - Chest Pain General Chief Complaint: Chest Pain Stated Complaint: cant catch breath, chest pain Time Seen by Provider: 12/31/18 12:54 Source: patient Mode of arrival: ambulatory Limitations: no limitations History of Present Illness HPI narrative: This is a 43-year-old [facility], coughing and vomiting patient states that yesterday she was throwing up sometimes so frequently that was coming out of her nose. She states that she has been coughing but it has been clear mucus intermittently with a dry cough. Patient states that it feels like something sitting on her chest particularly the left side and started going down her left arm. She states sort of pleuritic and worse with talking at times. She states she did feel little lightheaded occasionally she has felt presyncopal. She has only ever started to fall when someone else was around so she has never had a fall or hit her head. Patient has had temperatures at 99 F but no higher s ometimes her face feels hot and she feels freezing in the rest of her body. She continues to have shortness of breath. She has been lying in the bed for the last several days. She was discharged home with oxygen, this was after parainfluenza infection that caused exacerbation of COPD. Patient has not currently been on antibiotics for prednisone recently. She has been on water pills in the past but not recently. She states she has had some increased swelling in her lower extremities. She takes multiple inhalers for her lungs, Xanax as well as psychiatric medications. Related Data Home Medications Medication Instructions Recorded Confirmed Spiriva with HandiHaler 1 cap INHALATION DAILY 09/24/17 12/31/18 albuterol sulfate [ProAir HFA] 1 - 2 puff INHALATION Q4-6H PRN 09/24/17 12/31/18 alprazolam [Xanax] 1 mg PO TID PRN 09/24/17 12/31/18 jvbnngtvdk-xjutvsrtmmezf-suvo 1 tab PO Q4H PRN 09/24/17 12/31/18 esomeprazole magnesium 20 mg PO DAILY 09/13/18 12/31/18 ipratropium-albuterol 3 ml INHALATION Q6H PRN 09/13/18 12/10/18 loratadine 10 mg PO DAILY 09/13/18 12/10/18 olanzapine 15 mg PO DAILY 09/13/18 12/31/18 nicotine 1 patch TOPICAL DAILY 09/17/18 12/10/18 mometasone-formoterol [Dulera] 2 puff INHALATION BID 12/10/18 12/31/18 venlafaxine 225 mg PO DAILY 12/10/18 12/31/18 Previous Rx's Medication Instructions Recorded azithromycin See Rx Instructions .ROUTE 12/31/18 .COMPLEX #6 tab prednisone See Rx Instructions .ROUTE 12/31/18 .COMPLEX #15 each Allergies Allergy/AdvReac Type Severity Reaction Status Date / Time Penicillins [PENICILLINS] Allergy Unknown Verified 12/10/18 12:12 Review of Systems Review of Systems ROS Unobtainable: All systems reviewed & are unremarkable except as noted in HPI and below Constitutional Constitutional: Reports chills, Denies fever(s), Reports headache(s) (migraine, gets occasionally), Denies lethargy and Denies weakness Eyes Eyes: Denies change in vision ENT Ears, Nose, Mouth, and Throat: Reports vertigo (occaisonally), Reports headache(s) (migraine, gets occasionally), Denies nasal congestion and Denies post nasal drip Cardiovascular Cardiovascular: Reports chest pain, Reports chest pain at rest, Denies diaphoresis, Denies syncope (near syncope), Reports pedal edema, Reports lightheadedness, Reports radiating jaw, neck or arm pain, Denies palpitations, Reports dyspnea, Reports dyspnea on exertion and Denies orthopnea Respiratory Respiratory: Denies change in phlegm color, Denies chest congestion, Reports cough, Denies hemoptysis, Reports excessive phlegm production (clear), Reports pain on inspiration, Reports pain with cough, Reports dyspnea, Reports dyspnea on exertion, Denies stridor and Denies wheezing Gastrointestinal Gastrointestinal: Denies abdominal pain, Denies change in bowel habits, Denies diarrhea, Denies nausea and Reports vomiting (yesterday) Genitourinary Genitourinary: Denies hematuria, Denies urinary frequency, Denies dysuria, Denies flank pain, Denies urinary incontinence and Denies urinary urgency Integumentary/Breasts Skin/Breast: Denies rash and Denies unusual bruising Neurologic Neurologic: Reports vertigo (occaisonally), Denies syncope (near syncope), Reports headache(s) (migraine, gets occasionally) and Denies weakness Endocrine Endocrine: Denies palpitations Allergic/Immunologic Allergic/Immunologic: Denies wheezing [facility] Social History household members: spouse and children Smoking Status: Current every day smoker Exam Narrative Exam Narrative: GEN: Morbidly obese female, alert and oriented x 3, patient appears to be in mild distress. Patient appears anxious. HEENT: Atraumatic, pupils are equal round reactive to light, extraocular movements are intact, nares are clear, TMs are clear with no fluid. Throat is clear without any exudates, erythema, tonsillar enlargement or uvular deviation HEART: Regular rate and rhythm without murmur, clicks, rubs. Pulses are equal in upper and lower extremities. No edema bilateral lower extremities. LUNGS:Lungs clear to auscultation, no wheezes, rales, crackles, chest moves symmetrically, no tachypnea or accessory muscle use. ABD:bowel sounds normal, soft, non-tender, no guarding, rebound, rigidity, no masses noted, no hepatosplenomegaly :No CVA tenderness. MSCL: Non-tender, no muscle atrophy, calf circumference is equal bilaterally, muscles strength 5/5 upper and lower extremities, full range of motion, normal gait NEURO:CN 2-12 intact SKIN: no rashes, petechiae, no ecchymosis noted, no erythema. . Initial Vital Signs Initial Vital Signs: Vital Signs Temperature 98.4 F 12/31/18 12:42 Pulse Rate 78 12/31/18 12:42 Respiratory Rate 18 12/31/18 12:42 Blood Pressure 143/87 H 12/31/18 12:42 Pulse Oximetry 96 12/31/18 12:42 Scores HEART Score Heart Score history: Slightly Suspicious Heart Score EKG: Normal Heart Score Age: < 45 years old Heart Score risk factors: 1-2 risk factors Heart Score troponin: < or = to normal limit Heart Score Total: 1 PERC Score Age greater than or equal to 50 years: No Heart rate greater than or equal to 100 bpm: No Room Air O2 Sat less than 95%: No Unilateral leg swelling: No Recent trauma or surgery: No Hemoptysis: No Prior PE or DVT: No Hormone Use: No Total PERC Score: 0 Course Orders Ordered: ED Orders 12/31/18 12:34 EKG-12 Lead Stat 12/31/18 12:42 XR chest 1V Stat 12/31/18 12:45 B Type Natriuretic Peptide Stat Complete Blood Count AUTO DIFF Stat Comprehensive Metabolic Panel Stat D Dimer Stat Lipase Stat Partial Thromboplastin Time Stat Prothrombin Time INR Stat Troponin & CK Cardiac Panel Stat 12/31/18 14:52 CT angio chest PE protocol Stat Discontinued Medications Sodium Chloride (Normal Saline 0.9%) 1,000 mls @ 150 mls/hr IV CONT MAVIS Last Infusion: 12/31/18 17:33 Dose: 0 mls/hr Documented by: Admin: 12/31/18 13:42 Dose: 150 mls/hr Documented by: [facility] Ketorolac Tromethamine (Toradol) 30 mg IV NOW ONE Stop: 12/31/18 13:37 Last Admin: 12/31/18 13:42 Dose: 30 mg Documented by: [facility] Morphine Sulfate (Morphine) 2 mg IV NOW ONE Stop: 12/31/18 17:02 Last Admin: 12/31/18 17:16 Dose: 2 mg Documented by: BHUPENDRA Ondansetron HCl (Zofran) 4 mg IV NOW ONE Stop: 12/31/18 16:55 Last Admin: 12/31/18 16:57 Dose: 4 mg Documented by: BHUPENDRA Vital Signs Vital signs: Vital Signs - 8 hr 12/31/18 12:42 12/31/18 14:23 12/31/18 15:54 Temperature 98.4 F Pulse Rate 78 77 78 Respiratory Rate 18 21 20 Blood Pressure 143/87 H Blood Pressure [Right Arm] 127/78 145/97 H Pulse Oximetry 96 94 97 12/31/18 16:37 12/31/18 17:13 12/31/18 17:31 Temperature Pulse Rate 71 67 Respiratory Rate 20 Blood Pressure 155/61 H Blood Pressure [Right Arm] 137/87 Pulse Oximetry 97 92 96 MDM - Chest Pain Lab Data Attestation: I reviewed the patient's lab results. Result diagrams: 12/31/18 12:45 12/31/18 12:45 Labs: Lab Results 12/31/18 12/31/18 12/31/18 Range/Units 12:45 12:45 12:45 WBC 7.9 (4.5-11.0) X10^3/uL RBC 4.65 (4.0-5.2) X10^6/uL Hgb 15.1 (12.0-16.0) g/dL Hct 43.1 (36-46) % MCV 92.7 (80-100) fL MCH 32.5 (26-34) PG MCHC 35.0 (30-36) % RDW 13.6 (11.6-14.8) % Plt Count 217 (150-400) X10^3/uL Neut % (Auto) 58.7 (50-75) % Lymph % (Auto) 31.1 (25-40) % [place] % (Auto) 7.7 (3-14) % Eos % (Auto) 1.7 L (2-4) % Baso % (Auto) 0.8 (0-2) % Neut # (Auto) 4700 (0999-1252) /uL Lymph # (Auto) 2500 (5310-0064) /uL [place] # (Auto) 600 (0-900) /uL Eos # (Auto) 100 (0-450) /uL Baso # (Auto) 100 (0-100) /uL PT 11.3 (10.1-12.7) SECONDS INR 1.0 (0.9-1.3) APTT 33 D (26.4-36.2) SECONDS D-Dimer (<230) ng/mL Sodium 140 (137-145) mmol/L Potassium 3.6 (3.4-5.1) mmol/L Chloride 102 (98-107) mmol/L Carbon Dioxide 28 (22-32) mmol/L BUN 10 (7-17) mg/dL Creatinine 0.60 (0.52-1.04) mg/dL Estimated GFR > 60.0 (>60) mL/min BUN/Creatinine Ratio 16.7 (6-22) Glucose 90 (70-100) mg/dL Calcium 8.7 (8.4-10.2) mg/dL Total Bilirubin 0.4 (0.2-1.3) mg/dL AST 34 (14-36) IU/L ALT 33 (9-52) IU/L Alkaline Phosphatase 101 (38-126) U/L Total Creatine Kinase 69 (30-135) U/L CK-MB (CK-2) TNP CK-MB (CK-2) Rel Index TNP Troponin I < 0.012 (0.01-0.034) ng/mL B-Natriuretic Peptide (<100) Total Protein 7.1 (6.3-8.2) g/dL Albumin 3.9 (3.5-5.0) g/dL Globulin 3.2 (1.7-4.1) g/dL Albumin/Globulin Ratio 1.2 (1.0-2.8) Lipase 70 (23-300) U/L 12/31/18 12/31/18 Range/Units 12:45 12:45 WBC (4.5-11.0) X10^3/uL RBC (4.0-5.2) X10^6/uL Hgb (12.0-16.0) g/dL Hct (36-46) % MCV (80-100) fL MCH (26-34) PG MCHC (30-36) % RDW (11.6-14.8) % Plt Count (150-400) X10^3/uL Neut % (Auto) (50-75) % Lymph % (Auto) (25-40) % [place] % (Auto) (3-14) % Eos % (Auto) (2-4) % Baso % (Auto) (0-2) % Neut # (Auto) (2110-5570) /uL Lymph # (Auto) (2770-9715) /uL [place] # (Auto) (0-900) /uL Eos # (Auto) (0-450) /uL Baso # (Auto) (0-100) /uL PT (10.1-12.7) SECONDS INR (0.9-1.3) APTT (26.4-36.2) SECONDS D-Dimer 551 H (<230) ng/mL Sodium (137-145) mmol/L Potassium (3.4-5.1) mmol/L Chloride (98-107) mmol/L Carbon Dioxide (22-32) mmol/L BUN (7-17) mg/dL Creatinine (0.52-1.04) mg/dL Estimated GFR (>60) mL/min BUN/Creatinine Ratio (6-22) Glucose (70-100) mg/dL Calcium (8.4-10.2) mg/dL Total Bilirubin (0.2-1.3) mg/dL AST (14-36) IU/L ALT (9-52) IU/L Alkaline Phosphatase (38-126) U/L Total Creatine Kinase (30-135) U/L CK-MB (CK-2) CK-MB (CK-2) Rel Index Troponin I (0.01-0.034) ng/mL B-Natriuretic Peptide < 100 (<100) Total Protein (6.3-8.2) g/dL Albumin (3.5-5.0) g/dL Globulin (1.7-4.1) g/dL Albumin/Globulin Ratio (1.0-2.8) Lipase (23-300) U/L Urine Dip Bedside Urine Glucose Negative Bedside Urine Bilirubin - Negative Bedside Urine Ketone +/- 5 Urine Specific [place] 1.010 Bedside Urine Occult Blood - Negative Bedside Urine pH 7.0 Bedside Urine Protein +/- 15 Bedside Urine Urobilinogen +/- 1mg Bedside Urine Nitrite - Negative Bedside Urine Leukocytes - Negative Esterase Imaging Data Chest x-ray: Radiologist's impression: [address] [id number] XRay Report Signed Patient: Alyse Martin RMR#: [id number] : 1975Acct:[id number] Age/Sex: 43 / FDate of Service: 12/31/18 Loc: ED Accession Number: [id number] Procedure: XR chest 1V Ordering Provider: Giuliana Strong D.O. PROCEDURE: XR CHEST 1V INDICATIONS: chest pain TECHNIQUE: One view of the chest was acquired. COMPARISON: [facility], CT, CT ANGIO CHEST PE PROTOCOL, 09/17/2018, 13:22. [facility], CR, XR CHEST 1V, 09/17/2018, 13:14. FINDINGS: Surgical changes and devices: None. Lungs and pleura: Lungs are clear. No pleural effusions or pneumothorax. Mediastinum: Mediastinal contours appear normal. Heart size is normal. Bones and chest wall: No suspicious bony lesions. Overlying soft tissues appear unremarkable. IMPRESSION: No acute cardio pulmonary disease. Dictated by: Antonieta Mayorga M.D. on 12/31/2018 at 13:43 Approved by: Antonieta Mayorga M.D. on 12/31/2018 at 13:[address] PE protocal: Radiologist's impression: [address] [address] [address] Scan Report Signed Patient: Alyse Martin RMR#: [id number] : 1975Acct:[id number] Age/Sex: 43 / FDate of Service: 12/31/18 Loc: ED Accession Number: [id number] Procedure: CT angio chest PE protocol Ordering Provider: Giuliana Strong D.O. PROCEDURE: CT ANGIO CHEST PE PROTOCOL INDICATIONS: chest pain, sob, low O2 as outpatient TECHNIQUE: After the administration of intravenous contrast, 2 mm thick sections acquired from the pulmonary apices to the posterior costophrenic angles. 3-dimensional maximum intensity projection (MIP) coronal and sagittal reformats were then acquired through the thorax. For radiation dose reduction, the following was used: automated exposure control, adjustment of mA and/or kV according to patient size. COMPARISON: [facility], CT, CT ANGIO CHEST PE PROTOCOL, 09/17/2018, 13:22. [facility], CT, CT ANGIO CHEST PE PROTOCOL, 09/24/2017, 16:18. FINDINGS: Image quality: Diagnostic. Pulmonary arteries: Pulmonary arteries are normal in size, and demonstrate no intraluminal filling defects to suggest central pulmonary embolism. Lungs and pleura: Emphysematous changes within the bilateral lung apices is present. A vague slight increased density throughout the lungs is identified that is more prominent within the bilateral upper lobes, which could potentially be exaggerated by expiratory technique. No lobar consolidation or effusion is evident. There is no pneumothorax. Mild scar versus atelectasis at the left lung base and within the lingula is present. There is no lung mass. There is a 4-5 mm nodule identified at the right diaphragm (image 102, series 4). A small calcified granuloma within the right upper lobe is unchanged (image 37, series 4). No definite additional pulmonary nodules are appreciated. Mild bronchial wall thickening within the perihilar regions is present bilaterally. Mediastinum: Heart size is normal, without pericardial effusion. No mediastinal or hilar adenopathy. Thoracic aorta is normal in caliber and enhancement. Esophagus is normal in caliber, without hiatal hernia. Bones and chest wall: Small foci of sclerosis involving the anterior-superior endplates of the T9 and T10 vertebral bodies is of uncertain etiology. There may also be subtle areas of sclerosis involving the mid aspect of the T7 vertebral body. Mild degenerative changes of the spine are present. Ribs and thoracic spine appear intact throughout. Thyroid gland is not enlarged or adequately evaluated. No axillary or supraclavicular adenopathy. Abdomen: Included portions of the upper abdomen demonstrate the liver to be borderline prominent in size and demonstrate diffuse decreased density when compared to the spleen. IMPRESSION: 1. No evidence of pulmonary emboli. 2. Mild bronchial wall thickening may be exaggerated by expiratory technique. However, bronchitis could also have this appearance. There is no consolidating pneumonia. 3. Right basilar pulmonary nodule. Twelve-month followup CT of the chest is recommended. 4. Emphysematous changes of the lung apices. 5. Hepatic steatosis. 6. Nonspecific areas of sclerosis involving the T7, T9, and T10 vertebral bodies. These may represent bone islands. Other etiologies cannot be completely excluded. Contrast enhanced MRI of the thoracic spine is recommended for further evaluation. Dictated by: Shay West M.D. on 12/31/2018 at 14:55 Approved by: Shay West M.D. on 12/31/2018 at 15:04 ECG Data Attestation: I personally reviewed and interpreted this ECG as follows: Prior ECG tracings: available for review Interpretation: Sinus rhythm with a rate of 75 FL 153 QRS of 91 and QTC of 430. No ST changes appreciated. Patient has prior from 12/10/2018 which appears similar except for lead 3 QRS is inverted in prior EKG. [facility] Narrative Medical decision making narrative: Patient complains in with complaining of continued difficulty with breathing. She states she has been sleeping in bed for several days, she is morbidly obese and does have risk factors from this for possible PE, her troponin, CBC CMP do not show acute changes, BNP is not elevated, patient's lipase is negative along with LFTs. Chest x-ray does not show any acute disease. Patient states she has been continuing to use oxygen at home which was prescribed after she had low O2 as an outpatient continuing. She does have known COPD we discussed doing a CT PE protocol to evaluate. She does not appear to have any acute cardiac events, CHF, her lungs are clear at this point with good aeration so my suspicion for COPD exacerbation at this moment is low. CT PE study is negative for pulmonary emboli, patient has bronchial wall thic kening which could be technique related but could be a bronchitis. She does have emphysematous changes as well as a pulmonary nodule. Irene steatosis and sclerosis in T7-9 in 10. Discussed additional findings with the patient and her family at bedside. Patient and I discussed the possible bronchitis changes with her recent difficulty with and breathing issues I suspect is real. Discussed doing a tapering dose of steroid, she is often placed on azithromycin and follow up with PCP ambulatory pulse ox is in the mid 90s and patient is able to ambulate without much distress. She has a electrician radio she is supposed to see January 26 and she was encouraged to keep her appointment. Patient CT report [facility] to [facility] follow up of sclerosis in thoracic vertebrae and pulmonary nodule. Discharge Plan Departure Patient Disposition: Home Clinical Impression: Bronchitis, Hepatic steatosis, Emphysema/COPD, Pulmonary nodule Discharge Date/Time: 12/31/18 17:32 Instructions: Chronic Bronchitis Activity Restrictions/Additional Instructions: Follow up with your physician in the next 2-3 days. Call for an appointment. Continue with steroid burst as prescribed. Prescription was sent to in [place]. Start azithromycin today. Continue home inhalers as prescribed. Return to the Emergency Department for fevers greater than 100.4 F, new chest pain, shortness of breath, lightheadedness, passing out, persistent vomiting, black or bloody stools other new or concerning symptoms. Prescriptions: New prednisone 10 mg tablets,dose pack See Rx Instructions .ROUTE .COMPLEX Qty: 15 RF: 0 azithromycin 250 mg tablet See Rx Instructions .ROUTE .COMPLEX Qty: 6 RF: 0 No Action alprazolam [Xanax] 1 mg tablet 1 mg PO TID PRN (Reason: Anxiety) RF: 0 albuterol sulfate [ProAir HFA] 90 mcg/actuation Hfa Aerosol Inhaler 1 - 2 puff INHALATION Q4-6H PRN (Reason: shortness of breath) RF: 0 Spiriva with HandiHaler 18 mcg Capsule, W/Inhalation Device 1 cap INHALATION DAILY RF: 0 xyrzqbrjdj-zsmsrtfhbpvyf-fhxn 50-300-40 mg capsule 1 tab PO Q4H PRN (Reason: Migraine Headache) RF: 0 ipratropium-albuterol 0.5 mg-3 mg(2.5 mg base)/3 mL solution for nebulization 3 ml Inhalation Q6H PRN (Reason: Cough) RF: 0 olanzapine 10 mg tablet 15 mg PO DAILY RF: 0 loratadine 10 mg tablet 10 mg PO DAILY RF: 0 esomeprazole magnesium 20 mg capsule,delayed release(DR/EC) 20 mg PO DAILY RF: 0 nicotine 21 mg/24 hr patch 24 hour 1 patch topical DAILY RF: 0 venlafaxine 225 mg tablet extended release 24hr 225 mg PO DAILY RF: 0 Dulera 200-5 mcg/actuation HFA aerosol inhaler 2 puff inhalation BID RF: 0 Referrals: Vernell Alcantara ARNP [Primary Care Provider] -
[2018-12-31 13:13] LABS: PTT Partial Thromboplastin Tim 33 SECONDS (26.4-36.2)
[2018-12-31 13:14] LABS: Alanine Aminotransferase 33 IU/L (9-52); Albumin 3.9 g/dL (3.5-5.0); Albumin Globulin Ratio 1.2 (1.0-2.8); Alkaline Phosphatase 101 U/L (38-126); Aspartate Aminotransferase 34 IU/L (14-36); BUN Creatinine Ratio 16.7 (6-22); Bilirubin Total 0.4 mg/dL (0.2-1.3); Blood Urea Nitrogen 10 mg/dL (7-17); Calcium 8.7 mg/dL (8.4-10.2); Carbon Dioxide 28 mmol/L (22-32); Chloride 102 mmol/L (98-107); Creatine Kinase 69 U/L (30-135); Estimated Glomerular Filt Rate > 60.0 mL/min (>60); Globulin 3.2 g/dL (1.7-4.1); Glucose 90 mg/dL (70-100); HEMOLYSIS < 15 (0-50); Lipase 70 U/L (23-300); Potassium 3.6 mmol/L (3.4-5.1); Sodium 140 mmol/L (137-145); Total Protein 7.1 g/dL (6.3-8.2)
[2018-12-31 13:26] LABS: Troponin I < 0.012 ng/mL (0.01-0.034)
[2018-12-31] MEDS: SODIUM CHLORIDE 0.9% 1,000 ML 150 ML IV (13:42)
[2018-12-31] MEDS: KETOROLAC 60 MG/2 ML VIAL 30 MG IV (13:42)
[2018-12-31 13:53] LABS: D Dimer 551 ng/mL (<230)
[2018-12-31 14:01] LABS: B Type Natriuretic Peptide < 100 (<100)
[2018-12-31 14:23] VITALS: BP 127/78; PULSE 77; RESP 21; O2SAT 94
--- NOTE | 2018-12-31 14:52 | DI.CT.S_ITS ---
PROCEDURE: CT ANGIO CHEST PE PROTOCOL INDICATIONS: chest pain, sob, low O2 as outpatient TECHNIQUE: After the administration of intravenous contrast, 2 mm thick sections acquired from the pulmonary apices to the posterior costophrenic angles. 3-dimensional maximum intensity projection (MIP) coronal and sagittal reformats were then acquired through the thorax. For radiation dose reduction, the following was used: automated exposure control, adjustment of mA and/or kV according to patient size. COMPARISON: [facility], CT, CT ANGIO CHEST PE PROTOCOL, 09/17/2018, 13:22. [facility], CT, CT ANGIO CHEST PE PROTOCOL, 09/24/2017, 16:18. FINDINGS: Image quality: Diagnostic. Pulmonary arteries: Pulmonary arteries are normal in size, and demonstrate no intraluminal filling defects to suggest central pulmonary embolism. Lungs and pleura: Emphysematous changes within the bilateral lung apices is present. A vague slight increased density throughout the lungs is identified that is more prominent within the bilateral upper lobes, which could potentially be exaggerated by expiratory technique. No lobar consolidation or effusion is evident. There is no pneumothorax. Mild scar versus atelectasis at the left lung base and within the lingula is present. There is no lung mass. There is a 4-5 mm nodule identified at the right diaphragm (image 102, series 4). A small calcified granuloma within the right upper lobe is unchanged (image 37, series 4). No definite additional pulmonary nodules are appreciated. Mild bronchial wall thickening within the perihilar regions is present bilaterally. Mediastinum: Heart size is normal, without pericardial effusion. No mediastinal or hilar adenopathy. Thoracic aorta is normal in caliber and enhancement. Esophagus is normal in caliber, without hiatal hernia. Bones and chest wall: Small foci of sclerosis involving the anterior-superior endplates of the T9 and T10 vertebral bodies is of uncertain etiology. There may also be subtle areas of sclerosis involving the mid aspect of the T7 vertebral body. Mild degenerative changes of the spine are present. Ribs and thoracic spine appear intact throughout. Thyroid gland is not enlarged or adequately evaluated. No axillary or supraclavicular adenopathy. Abdomen: Included portions of the upper abdomen demonstrate the liver to be borderline prominent in size and demonstrate diffuse decreased density when compared to the spleen. IMPRESSION: 1. No evidence of pulmonary emboli. 2. Mild bronchial wall thickening may be exaggerated by expiratory technique. However, bronchitis could also have this appearance. There is no consolidating pneumonia. 3. Right basilar pulmonary nodule. Twelve-month followup CT of the chest is recommended. 4. Emphysematous changes of the lung apices. 5. Hepatic steatosis. 6. Nonspecific areas of sclerosis involving the T7, T9, and T10 vertebral bodies. These may represent bone islands. Other etiologies cannot be completely excluded. Contrast enhanced MRI of the thoracic spine is recommended for further evaluation. Dictated by: Shay West M.D. on 12/31/2018 at 14:55 Approved by: Shay West M.D. on 12/31/2018 at 15:04
[2018-12-31 15:54] VITALS: BP 145/97; PULSE 78; RESP 20; O2SAT 97
[2018-12-31 16:37] VITALS: BP 137/87; PULSE 71; O2SAT 97
[2018-12-31] MEDS: ONDANSETRON 4 MG/2 ML INJ IV (16:57)
[2018-12-31 17:13] VITALS: O2SAT 92
[2018-12-31] MEDS: MORPHINE 2 MG/ML INJ IV (17:16)
[2018-12-31 17:31] VITALS: BP 155/61; PULSE 67; RESP 20; O2SAT 96
== END 2018-12-31 17:32 | disposition home or self-care (01) ==
PROVIDERS: Emergency Provider Emergency Medicine; PCP Nurse Practitioner Family
DX: J40 Bronchitis, not specified as acute or chronic (principal); K76.0 Fatty (change of) liver, not elsewhere classified; J43.9 Emphysema, unspecified; R91.1 Solitary pulmonary nodule
CPT/HCPCS: 36591; 71045; 71275; 80053; 81003; 82550; 83690; 83880; 84484; 85025; 85379; 85610; 85730; 93005; 96361; 96374; 96375; 99283; 99285; J1885; J2270; J2405; Q9967

== ENCOUNTER 2019-01-25 19:57 | Emergency (ER) | payer OTHER, MEDICAID, SELFPAY ==
[2018-09-17 16:39] VITALS: BMI 43.9
[2019-01-25 20:06] VITALS: BP 185/124; PULSE 88; RESP 18; TEMP 36.6; O2SAT 98
[2019-01-25 20:11] VITALS: BP 142/120; PULSE 81; O2SAT 98
--- NOTE | 2019-01-25 21:10 | ED_ITS ---
HPI - General Adult General Chief complaint: Hypertension Stated complaint: high blood pressure Time Seen by Provider: 01/25/19 20:11 Source: patient Mode of arrival: Ambulatory Limitations: no limitations History of Present Illness HPI narrative: The patient has migraine headaches. She complains of global headache for 4 days, of the same nature but worse than usual. She takes her usual prescriptions, but no avail this time headache persist. She was seen by her doctor today, diagnosed with hypertension and started on a diuretic. Her blood pressure was apparently greater than 180 systolic. Her doctor was worried about a brain bleed. She has no acute visual changes, she does have scotoma and mild photophobia. Her current visual symptoms are generally associated with her headaches. She has no neck pain or stiffness. She has no chest pain or dyspnea. She is coughing. She is a smoker. She has no asthma or allergy. The cough is occasionally productive. She has no fever or chills. She has no pe ripheral numbness or weakness. She has nausea without emesis. Related Data Home Medications Medication Instructions Recorded Confirmed Spiriva with HandiHaler 1 cap INHALATION DAILY 09/24/17 12/31/18 albuterol sulfate [ProAir HFA] 1 - 2 puff INHALATION Q4-6H PRN 09/24/17 12/31/18 alprazolam [Xanax] 1 mg PO TID PRN 09/24/17 12/31/18 [id number] 1 tab PO Q4H PRN 09/24/17 12/31/18 esomeprazole magnesium 20 mg PO DAILY 09/13/18 12/31/18 ipratropium-albuterol 3 ml INHALATION Q6H PRN 09/13/18 12/10/18 loratadine 10 mg PO DAILY 09/13/18 12/10/18 olanzapine 15 mg PO DAILY 09/13/18 12/31/18 nicotine 1 patch TOPICAL DAILY 09/17/18 12/10/18 mometasone-formoterol [Dulera] 2 puff INHALATION BID 12/10/18 12/31/18 venlafaxine 225 mg PO DAILY 12/10/18 12/31/18 Previous Rx's Medication Instructions Recorded azithromycin See Rx Instructions .ROUTE 12/31/18 .COMPLEX #6 tab prednisone See Rx Instructions .ROUTE 12/31/18 .COMPLEX #15 each Allergies Allergy/AdvReac Type Severity Reaction Status Date / Time Penicillins [PENICILLINS] Allergy Unknown Verified 12/10/18 12:12 Review of Systems Review of Systems ROS Unobtainable: All systems reviewed & are unremarkable except as noted in HPI and below Constitutional Constitutional: Denies chills, Denies fever(s), Reports headache(s), Denies let hargy and Denies weakness Eyes Eyes: Denies blind spots, Denies blurry vision, Denies diplopia, Denies loss of vision and Denies photophobia Comments: Scotoma. ENT Ears, Nose, Mouth, and Throat: Denies change in voice, Denies vertigo, Denies dizziness, Reports headache(s), Denies neck pain and Denies sore throat Cardiovascular Cardiovascular: Denies chest pain, Denies irregular heart rhythm, Denies lightheadedness, Denies palpitations, Denies dyspnea and Denies orthopnea Respiratory Respiratory: Denies cough, Denies dyspnea and Denies wheezing Gastrointestinal Gastrointestinal: Denies abdominal pain, Denies nausea and Denies vomiting Musculoskeletal Musculoskeletal: Denies back pain, Denies neck pain and Denies numbness Integumentary/Breasts Skin/Breast: Denies pruritus, Denies erythema, Denies rash and Denies wounds Neurologic Neurologic: Denies abnormal speech, Denies confusion, Denies vertigo, Denies di zziness, Reports headache(s), Denies focal weakness, Denies loss of vision, Denies memory loss, Denies numbness and Denies weakness Psychiatric Psychiatric: Denies confusion and Denies memory loss Endocrine Endocrine: Denies palpitations Hematologic/Lymphatic Hematologic/Lymphatic: Denies easy bruising Allergic/Immunologic Allergic/Immunologic: Denies wheezing [facility] Medical History Acute bronchitis with chronic obstructive pulmonary disease (COPD) (Acute) Anxiety (Chronic) Bipolar 1 disorder (Chronic) Chronic respiratory failure with hypoxia (Chronic) COPD (chronic obstructive pulmonary disease) (Chronic) Depression (Chronic) GERD (gastroesophageal reflux disease) (Chronic) Hypertension (Acute) Migraine (Chronic) Sleep apnea (Chronic) Tobacco dependence (Chronic) Vaginal prolapse (Chronic) Surgical History H/O: hysterectomy (Chronic) History of appendectomy (Chronic) Social History household members: spouse and children Smoking Status: Current every day smoker Social History household members: spouse and children Smoking Status: Current every day smoker Exam Initial Vital Signs Initial Vital Signs: Vital Signs Temperature 98 F 01/25/19 20:06 Pulse Rate 88 01/25/19 20:06 Respiratory Rate 18 01/25/19 20:06 Blood Pressure 185/124 H 01/25/19 20:06 Pulse Oximetry 98 01/25/19 20:06 Const General: well developed Nutritional Appearance: well nourished Orientation: alert, awake, oriented x3 and not confused HENMT Head: normocephalic and atraumatic Ears: external ears normal and TM's normal bilaterally Nose: external nose normal and No nasal discharge Face and sinus: sinuses nontender and face symmetric Mouth: oral mucosae normal and moist mucous membranes Teeth and gingiva: dentition normal Throat: posterior oropharynx normal and tonsils normal Eyes General: appearance normal, both eyes and all related structures Eyelids: eyelids normal Conjunctivae: conjunctivae normal Sclera: sclerae normal Pupils: PERRL EOM: EOM intact bilaterally Neck Neck: normal visual inspection, No no meningeal signs, trachea midline, No lymphadenopathy and No midline deformity Lymphatic: No lymphedema Chest Chest: normal inspection of the chest Resp Effort & Inspection: normal respiratory effort and able to speak in complete sentences Auscultation: clear to auscultation bilaterally, no rales, no rhonchi and no wheezes Cardio Rate: regular rate Rhythm: regular rhythm Heart Sounds: S1 normal, S2 normal, no click, no gallops, no murmurs and no rubs Pulses: normal peripheral pulses GI Inspection: non-distended and obesity Palpation: soft, no hepatosplenomegaly, No guarding, No pulsatile mass and No tender Auscultation: normal bowel sounds Back/Spine/Pelvis Back: No CVA tenderness Skin General: no rashes or lesions noted, No jaundice and No petechiae Neuro General: alert, oriented x3, gait normal and no focal motor deficits Speech: speech normal Extrem General: full ROM, no pedal edema and no calf tenderness Psych Appearance: well kempt Mental Status: mental status grossly normal Attitude: cooperative Thought Content: normal Judgment: judgment good Course Course Course Narrative: For symptoms of migraine have resolved with the medications given. From the evaluation there is no evidence of sinusitis, pharyngitis or pneumonia. She is advised follow-up with her doctor regarding hypertension management, and migraine management. She is advised to quit smoking. Orders Ordered: ED Orders 01/25/19 20:15 Complete Blood Count AUTO DIFF Stat Comprehensive Metabolic Panel Stat 01/25/19 21:12 CT head/brain wo con Stat XR chest 1V Stat 01/25/19 21:20 Ictotest Urine Stat Urine Microscopic Stat Discontinued Medications Diphenhydramine HCl (Benadryl) 25 mg IV NOW ONE Stop: 01/25/19 21:11 Last Admin: 01/25/19 21:18 Dose: 25 mg Documented by: HUSAM Hydromorphone HCl (Dilaudid) 1 mg IV NOW ONE Stop: 01/25/19 21:11 Last Admin: 01/25/19 21:18 Dose: 1 mg Documented by: HUSAM Sodium Chloride (Normal Saline 0.9%) 1,000 mls @ 1,000 mls/hr IV BOLUS ONE Stop: 01/25/19 22:09 Last Infusion: 01/25/19 22:53 Dose: 0 mls/hr Documented by: Infusion: 01/25/19 21:58 Dose: 1,000 mls/hr Documented by: Infusion: 01/25/19 21:34 Dose: 0 mls/hr Documented by: Admin: 01/25/19 21:17 Dose: 1,000 mls/hr Documented by: HUSAM Ketorolac Tromethamine (Toradol) 30 mg IV NOW ONE Stop: 01/25/19 22:36 Last Admin: 01/25/19 22:54 Dose: 30 mg Documented by: HUSAM Metoclopramide HCl (Reglan) 10 mg IV NOW ONE Stop: 01/25/19 21:11 Last Admin: 01/25/19 21:17 Dose: 10 mg Documented by: HUSAM Vital Signs Vital signs: Vital Signs - 8 hr 01/25/19 20:06 01/25/19 20:11 01/25/19 22:04 Temperature 98 F Pulse Rate 88 81 80 Respiratory Rate 18 20 Blood Pressure 185/124 H Blood Pressure [Right Arm] 142/120 H 158/97 H Pulse Oximetry 98 98 97 01/25/19 22:50 Temperature Pulse Rate 74 Respiratory Rate 20 Blood Pressure Blood Pressure [Right Arm] 157/91 H Pulse Oximetry 98 Medical Decision Making Lab Data Result diagrams: 01/25/19 20:15 01/25/19 20:15 Labs: Lab Results 01/25/19 01/25/19 01/25/19 Range/Units 20:15 20:15 21:20 WBC 8.2 (4.5-11.0) X10^3/uL RBC 4.75 (4.0-5.2) X10^6/uL Hgb 15.4 (12.0-16.0) g/dL Hct 45.0 (36-46) % MCV 94.6 (80-100) fL MCH 32.5 (26-34) PG MCHC 34.3 (30-36) % RDW 13.8 (11.6-14.8) % Plt Count 204 (150-400) X10^3/uL Neut % (Auto) 58.3 (50-75) % Lymph % (Auto) 30.6 (25-40) % Crockett % (Auto) 8.2 (3-14) % Eos % (Auto) 2.3 (2-4) % Baso % (Auto) 0.6 (0-2) % Neut # (Auto) 4800 (6440-4095) /uL Lymph # (Auto) 2500 (6075-1899) /uL Crockett # (Auto) 700 (0-900) /uL Eos # (Auto) 200 (0-450) /uL Baso # (Auto) 100 (0-100) /uL Sodium 139 (137-145) mmol/L Potassium 3.6 (3.4-5.1) mmol/L Chloride 106 (98-107) mmol/L Carbon Dioxide 27 (22-32) mmol/L BUN 13 (7-17) mg/dL Creatinine 0.50 L (0.52-1.04) mg/dL Estimated GFR > 60.0 (>60) mL/min BUN/Creatinine Ratio 26.0 H (6-22) Glucose 116 H (70-100) mg/dL Calcium 9.2 (8.4-10.2) mg/dL Total Bilirubin 0.3 (0.2-1.3) mg/dL AST 49 H (14-36) IU/L ALT 72 H (9-52) IU/L Alkaline Phosphatase 113 (38-126) U/L Total Protein 7.4 (6.3-8.2) g/dL Albumin 4.0 (3.5-5.0) g/dL Globulin 3.4 (1.7-4.1) g/dL Albumin/Globulin Ratio 1.2 (1.0-2.8) Urine Ictotest (Negative) Urine RBC None seen (0-5/HPF) Urine WBC 0-1/hpf (0-5/HPF) Ur Squamous Epith Cells 10-30 /hpf H (0-5/HPF) Calcium Oxalate Crystal Moderate H Urine Bacteria Many (>30) H (None) Urine Mucus 3+ H (Negative) Ur Culture Indicated? Cult not indicated Micro UA Comment * 01/25/19 Range/Units 21:20 WBC (4.5-11.0) X10^3/uL RBC (4.0-5.2) X10^6/uL Hgb (12.0-16.0) g/dL Hct (36-46) % MCV (80-100) fL MCH (26-34) PG MCHC (30-36) % RDW (11.6-14.8) % Plt Count (150-400) X10^3/uL Neut % (Auto) (50-75) % Lymph % (Auto) (25-40) % Crockett % (Auto) (3-14) % Eos % (Auto) (2-4) % Baso % (Auto) (0-2) % Neut # (Auto) (9094-5227) /uL Lymph # (Auto) (0330-4505) /uL Crockett # (Auto) (0-900) /uL Eos # (Auto) (0-450) /uL Baso # (Auto) (0-100) /uL Sodium (137-145) mmol/L Potassium (3.4-5.1) mmol/L Chloride (98-107) mmol/L Carbon Dioxide (22-32) mmol/L BUN (7-17) mg/dL Creatinine (0.52-1.04) mg/dL Estimated GFR (>60) mL/min BUN/Creatinine Ratio (6-22) Glucose (70-100) mg/dL Calcium (8.4-10.2) mg/dL Total Bilirubin (0.2-1.3) mg/dL AST (14-36) IU/L ALT (9-52) IU/L Alkaline Phosphatase (38-126) U/L Total Protein (6.3-8.2) g/dL Albumin (3.5-5.0) g/dL Globulin (1.7-4.1) g/dL Albumin/Globulin Ratio (1.0-2.8) Urine Ictotest Negative (Negative) Urine RBC (0-5/HPF) Urine WBC (0-5/HPF) Ur Squamous Epith Cells (0-5/HPF) Calcium Oxalate Crystal Urine Bacteria (None) Urine Mucus (Negative) Ur Culture Indicated? Micro UA Comment Point of Care Testing Test Results Negative Urine Dip Bedside Urine Glucose Negative Bedside Urine Bilirubin + 1 Bedside Urine Ketone +/- 5 Urine Specific [place]ugh 1.025 Bedside Urine Occult Blood - Negative Bedside Urine pH 6.0 Bedside Urine Protein + 30 Bedside Urine Urobilinogen +/- 1mg Bedside Urine Nitrite - Negative Bedside Urine Leukocytes +/- 15 Esterase Point of care testing: Point of Care Testing Test Results Negative Urine Dip Bedside Urine Glucose Negative Bedside Urine Bilirubin + 1 Bedside Urine Ketone +/- 5 Urine Specific [place]ugh 1.025 Bedside Urine Occult Blood - Negative Bedside Urine pH 6.0 Bedside Urine Protein + 30 Bedside Urine Urobilinogen +/- 1mg Bedside Urine Nitrite - Negative Bedside Urine Leukocytes +/- 15 Esterase Imaging Data Chest x-ray: Radiologist's impression: 45 Tigre Correa MD Find Patient Imaging - Alyse Martin 43 F 1975 ACTIVITY DATE EXAM STATUS AUTHOR 01/25/19 21:12 Signed Víctor Bui 01/25/19 21:[address] [address] XRay Report Signed Patient: Alyse Martin RMR#: [id number] : 1975Acct:[id number] Age/Sex: 43 / FDate of Service: 01/25/19 Loc: ED Accession Number: [id number] Procedure: XR chest 1V Ordering Provider: Tigre Correa MD PROCEDURE: XR CHEST 1V INDICATIONS: Productive cough TECHNIQUE: One view of the chest was acquired. COMPARISON: [facility], CR, XR CHEST 1V, 12/31/2018, 12:46. FINDINGS: Surgical changes and devices: None. Lungs and pleura: Lungs are clear. No pleural effusions or pneumothorax. Mediastinum: Mediastinal contours appear normal. Heart size is normal. Bones and chest wall: No suspicious bony lesions. Overlying soft tissues appear unremarkable. IMPRESSION: 1. No acute cardiopulmonary disease. Dictated by: Víctor Bui M.D. on 01/25/2019 at 21:58 Approved by: Víctor Bui M.D. on 01/25/2019 at 21:58 CT scan - head: Radiologist's impression: [place] [address] CT Scan Report Signed Patient: Alyse Martin RMR#: [id number] : 1975Acct:[id number] Age/Sex: 43 / FDate of Service: 01/25/19 Loc: ED Accession Number: [id number] Procedure: CT head/brain wo con Ordering Provider: Tigre Correa MD PROCEDURE: CT HEAD/BRAIN WO CON INDICATIONS: Severe headache TECHNIQUE: Noncontrast 4.5 mm thick angled axial sections acquired from the foramen magnum to the vertex, with coronal and sagittal reformats. For radiation dose reduction, the following was used: automated exposure control, adjustment of mA and/or kV according to patient size. COMPARISON: None. FINDINGS: Image quality: Excellent. CSF spaces: Basal cisterns are patent. No extra-axial fluid collections. Ve ntricles are normal in size and shape. Brain: No intracranial hemorrhage, mass, or mass effect. Leonardo-white matter interface is preserved. Skull and face: Calvarium and visualized facial bones are intact, without suspicious lesions. Sinuses: Visualized sinuses and mastoids are clear. IMPRESSION: 1. No acute intracranial abnormality. Dictated by: Víctor Bui M.D. on 01/25/2019 at 21:51 Approved by: Víctor Bui M.D. on 01/25/2019 at 21:52 Discharge Plan Departure Patient Disposition: Home Clinical Impression: Migraine Qualifiers: Migraine type: ophthalmoplegic Intractability: not intractable Qualified Code(s): G43.B0 - Ophthalmoplegic migraine, not intractable Hypertension Qualifiers: Hypertension type: essential hypertension Qualified Code(s): I10 - Essential (primary) hypertension Instructions: DI for Migraine Activity Restrictions/Additional Instructions: Continue her current medications for headache and for high blood pressure. Follow-up with her doctor for ongoing monitoring both problems. I recommend you stop smoking. Return the ER if you develop worsening headache, increasing cough, or fever. Prescriptions: No Action alprazolam [Xanax] 1 mg tablet 1 mg PO TID PRN (Reason: Anxiety) RF: 0 albuterol sulfate [ProAir HFA] 90 mcg/actuation Hfa Aerosol Inhaler 1 - 2 puff INHALATION Q4-6H PRN (Reason: shortness of breath) RF: 0 Spiriva with HandiHaler 18 mcg Capsule, W/Inhalation Device 1 cap INHALATION DAILY RF: 0 gwxykdwajc-uhnckurrudqei-ifbt 50-300-40 mg capsule 1 tab PO Q4H PRN (Reason: Migraine Headache) RF: 0 ipratropium-albuterol 0.5 mg-3 mg(2.5 mg base)/3 mL solution for nebulization 3 ml Inhalation Q6H PRN (Reason: Cough) RF: 0 olanzapine 10 mg tablet 15 mg PO DAILY RF: 0 loratadine 10 mg tablet 10 mg PO DAILY RF: 0 esomeprazole magnesium 20 mg capsule,delayed release(DR/EC) 20 mg PO DAILY RF: 0 nicotine 21 mg/24 hr patch 24 hour 1 patch topical DAILY RF: 0 venlafaxine 225 mg tablet extended release 24hr 225 mg PO DAILY RF: 0 Dulera 200-5 mcg/actuation HFA aerosol inhaler 2 puff inhalation BID RF: 0 prednisone 10 mg tablets,dose pack See Rx Instructions .ROUTE .COMPLEX Qty: 15 RF: 0 azithromycin 250 mg tablet See Rx Instructions .ROUTE .COMPLEX Qty: 6 RF: 0 Referrals: Vernell Alcantara ARNP [Primary Care Provider] -
[2019-01-25] MEDS: METOCLOPRAMIDE 10 MG/2 ML INJ IV (21:17)
[2019-01-25] MEDS: SODIUM CHLORIDE 0.9% 1,000 ML 1000 ML IV (21:17)
[2019-01-25] MEDS: HYDROMORPHONE 1 MG INJ IV (21:18)
[2019-01-25] MEDS: diphenhydrAMINE 50 MG/ML VIAL 25 MG IV (21:18)
[2019-01-25 21:27] LABS: Add Manual Diff / Slide Review NO; Basophils Absolute Auto 100 /uL (0-100); Basophils Percent Auto 0.6 % (0-2); Eosinophils Absolute Auto 200 /uL (0-450); Eosinophils Percent Auto 2.3 % (2-4); Hemoglobin 15.4 g/dL (12.0-16.0); Lymphocytes Absolute Auto 2500 /uL (1100-4500); Lymphocytes Percent Auto 30.6 % (25-40); Mean Corpuscular HGB Conc 34.3 % (30-36); Mean Corpuscular Hemoglobin 32.5 PG (26-34); Mean Corpuscular Volume 94.6 fL (80-100); Monocytes Absolute Auto 700 /uL (0-900); Monocytes Percent Auto 8.2 % (3-14); Neutrophils Absolute Auto 4800 /uL (1500-7000); Neutrophils Percent Auto 58.3 % (50-75); Platelet Count 204 X10^3/uL (150-400); Red Blood Cell Count 4.75 X10^6/uL (4.0-5.2); Red Cell Distribution Width 13.8 % (11.6-14.8); White Blood Cell Count 8.2 X10^3/uL (4.5-11.0)
[2019-01-25 21:29] LABS: Alanine Aminotransferase 72 IU/L (9-52); Albumin Globulin Ratio 1.2 (1.0-2.8); Alkaline Phosphatase 113 U/L (38-126); Aspartate Aminotransferase 49 IU/L (14-36); Bilirubin Total 0.3 mg/dL (0.2-1.3); Blood Urea Nitrogen 13 mg/dL (7-17); Calcium 9.2 mg/dL (8.4-10.2); Carbon Dioxide 27 mmol/L (22-32); Chloride 106 mmol/L (98-107); Estimated Glomerular Filt Rate > 60.0 mL/min (>60); Globulin 3.4 g/dL (1.7-4.1); Glucose 116 mg/dL (70-100); HEMOLYSIS 17 (0-50); Potassium 3.6 mmol/L (3.4-5.1); Sodium 139 mmol/L (137-145); Total Protein 7.4 g/dL (6.3-8.2)
[2019-01-25 22:04] VITALS: BP 158/97; PULSE 80; RESP 20; O2SAT 97
[2019-01-25 22:27] LABS: RBC Urine None Seen (0-5/HPF)
[2019-01-25 22:36] LABS: Bacteria Urine Many (>30); Calcium Oxalate Crystals Urine Moderate; Culture Indicated Urine Cult Not Indicated; Mucus Urine 3+ (Negative); Squamous Epithelial Cell Urine 10-30 /HPF (0-5/HPF); WBC Urine 0-1/HPF (0-5/HPF)
[2019-01-25 22:42] LABS: Ictotest Urine Negative (Negative)
[2019-01-25 22:50] VITALS: BP 157/91; PULSE 74; RESP 20; O2SAT 98
[2019-01-25] MEDS: KETOROLAC 60 MG/2 ML VIAL 30 MG IV (22:54)
== END 2019-01-25 22:59 | disposition home or self-care (01) ==
PROVIDERS: Emergency Provider Emergency Medicine; PCP Nurse Practitioner Family
DX: G43.B0 Ophthalmoplegic migraine, not intractable (principal); I10 Essential (primary) hypertension; R05 Cough
CPT/HCPCS: 36415; 70450; 71045; 80053; 81003; 81015; 81025; 85025; 96361; 96374; 96375; 99284; J1170; J1200; J1885; J2765

== ENCOUNTER 2019-02-06 10:28 | Emergency (ER) | payer OTHER, MEDICAID, SELFPAY ==
[2018-09-17 16:39] VITALS: BMI 43.9
[2019-02-06] VITALS (7 sets, daily range): BP systolic 121–138; BP diastolic 75–82; PULSE 91–108; RESP 20–24; TEMP 36.8; O2SAT 93–100
--- NOTE | 2019-02-06 10:43 | DI.RAD.S_ITS ---
PROCEDURE: XR CHEST 2V INDICATIONS: shortness of breath TECHNIQUE: 2 views of the chest were acquired. COMPARISON: [facility], , XR CHEST 1V, 01/25/2019, 21:39. FINDINGS: Surgical changes and devices: None. Lungs and pleura: Lungs are clear. No pleural effusions or pneumothorax. Mediastinum: Mediastinal contours are normal. Heart size is normal. Bones and chest wall: No suspicious bony abnormalities. Soft tissues appear unremarkable. IMPRESSION: No acute cardiopulmonary process is seen. Dictated by: Luis M Cool M.D. on 02/06/2019 at 9:59 Approved by: Luis M Cool M.D. on 02/06/2019 at 10:00
[2019-02-06] MEDS: ALBUTEROL/IPRATROPIUM 3 ML AMPUL INH (10:54)
--- NOTE | 2019-02-06 11:10 | RT ---
Sputum sample sent to lab. EMPLOYEE[employer]S REPRESENTATIVE will order. Pt coughed up thick, mod sized tatum-brown specimen. Nurse Maryellen to receive the specimen in [facility].
--- NOTE | 2019-02-06 11:27 | ED.SOB ---
HPI - SOB/Dyspnea <Ayana RobertsonMINI - Last Filed: 02/06/19 21:46> General Chief Complaint: Shortness of Breath/Dyspnea Stated Complaint: prod cough/chills/n&v/COPD x5 days Time Seen by Provider: 02/06/19 10:57 Source: patient Mode of arrival: Ambulatory Limitations: no limitations History of Present Illness HPI Narrative: 43-year-old female who is a current smoker and has a history of COPD, emphysema, and asthma, presents to the emergency department complaining of a new productive cough and increasing shortness of breath for the past 4-5 days. She states she has had occasional chills but no fevers. She has been taking her ProAir inhaler and her duo nebs for shortness of breath a few times per day without improvement. She has not been treated for this exacerbation previously. Patient states her oxygen saturations are usually 94-95% on RA, she uses CPAP at home during the night, and uses supplemental oxygen during the night as well because her oxygen saturation can drop to 82%. Patient denies any chest pain, sore throat, abdominal pain, nausea, diarrhea, syncope. Related Data Home Medications Medication Instructions Recorded Confirmed Spiriva with HandiHaler 1 cap INHALATION DAILY 09/24/17 12/31/18 albuterol sulfate [ProAir HFA] 1 - 2 puff INHALATION Q4-6H PRN 09/24/17 12/31/18 alprazolam [Xanax] 1 mg PO TID PRN 09/24/17 12/31/18 cdndfvxcup-thxdxznssmema-fqoc 1 tab PO Q4H PRN 09/24/17 12/31/18 esomeprazole magnesium 20 mg PO DAILY 09/13/18 12/31/18 ipratropium-albuterol 3 ml INHALATION Q6H PRN 09/13/18 12/10/18 loratadine 10 mg PO DAILY 09/13/18 12/10/18 olanzapine 15 mg PO DAILY 09/13/18 12/31/18 nicotine 1 patch TOPICAL DAILY 09/17/18 12/10/18 mometasone-formoterol [Dulera] 2 puff INHALATION BID 12/10/18 12/31/18 venlafaxine 225 mg PO DAILY 08/16/19 09/06/19 Previous Rx's Medication Instructions Recorded azithromycin See Rx Instructions .ROUTE 12/31/18 .COMPLEX #6 tab prednisone See Rx Instructions .ROUTE 12/31/18 .COMPLEX #15 each azithromycin See Rx Instructions .ROUTE 02/06/19 .COMPLEX #6 tab prednisone 40 mg PO DAILY 5 Days tab 02/06/19 Allergies Allergy/AdvReac Type Severity Reaction Status Date / Time Penicillins [PENICILLINS] Allergy Unknown Verified 12/10/18 12:12 Review of Systems <MINI Rueda - Last Filed: 02/06/19 21:46> Review of Systems Narrative: REVIEW OF SYSTEMS: GENERAL: Denies fever or chills. HENT: No head trauma, hearing loss or sore throat. Complains of nasal congestion, see HPI. EYES: No loss of vision, double vision, eye pain, or irritation. CARDIOVASCULAR: No chest pain or syncope. RESPIRATORY: Complains of shortness of breath, and productive cough, see HPI. GASTROINTESTINAL: No nausea, vomiting, diarrhea, or constipation. GENITOURINARY: No flank pain or dysuria. MUSCULOSKELETAL: No pain, weakness, or deformities. INTEGUMENTARY: No rash, lesions, or pruritus. NEURO: No numbness, tingling, memory loss, or confusion. PSYCH: No behavior or mood changes. Patient History <MINI Rueda - Last Filed: 02/06/19 21:46> Medical/Surgical History Medical History Acute bronchitis with chronic obstructive pulmonary disease (COPD) (Acute) Anxiety (Chronic) Bipolar 1 disorder (Chronic) Chronic respiratory failure with hypoxia (Chronic) COPD (chronic obstructive pulmonary disease) (Chronic) Depression (Chronic) GERD (gastroesophageal reflux disease) (Chronic) Hypertension (Acute) Migraine (Chronic) Sleep apnea (Chronic) Tobacco dependence (Chronic) Vaginal prolapse (Chronic) Surgical History H/O: hysterectomy (Chronic) History of appendectomy (Chronic) Social History household members: spouse and children Smoking Status: Current every day smoker Family/Social History Social History household members: spouse and children Smoking Status: Current every day smoker alcohol intake frequency: 0-2 drinks per day Substance Use Type: does not use Exam <MINI Rueda - Last Filed: 02/06/19 21:46> Narrative Exam Narrative: PHYSICAL EXAMINATION: GENERAL: Well groomed, alert, and cooperative. Answers questions promptly and appropriately. Vital signs noted. HENT: Normocephalic, atraumatic. Ear canals patent. Oral pharynx without erythema. EYES: Conjunctiva pink, sclera white, no periorbital swelling. CHEST: Normal to inspection and without deformities. CARDIOVASCULAR: S1 and S2 sounds normal. Regular rate and rhythm, no murmurs, clicks, or bruits. No pedal edema. RESPIRATORY: Normal respiratory rate, trachea midline, airway patent. No stridor, nasal flaring or accessory muscle use. Occasional diffuse expiratory wheezes heard throughout lung parrish, this improved after administration of DuoNeb. Patient exhibits a productive cough with large amounts of white and clear sputum. GASTROINTESTINAL: Bowel sounds normoactive. Abdomen is soft and non-tender. No organomegaly. MUSCULOSKELETAL: Normal gait and coordination. Equal tone and mass bilaterally. EXTREMITIES: CMS intact. Moves all extremities. SKIN: Warm, dry, soft, appropriate color for ethnicity. No lesions, rashes, or wounds. NEURO: Alert and Oriented X 3. Good coordination. No ataxia, or sensory deficits, or cognitive issues. PSYCH: Appropriate affect and mood. Initial Vital Signs Initial Vital Signs: Vital Signs Temperature 98.2 F 02/06/19 10:30 Pulse Rate 98 H 02/06/19 10:30 Respiratory Rate 24 02/06/19 10:30 Blood Pressure 138/79 02/06/19 10:30 Pulse Oximetry 93 02/06/19 10:30 <Sage Monreal DO - Last Filed: 02/07/19 06:58> Initial Vital Signs Initial Vital Signs: Vital Signs Temperature 98.2 F 02/06/19 10:30 Pulse Rate 98 H 02/06/19 10:30 Respiratory Rate 24 02/06/19 10:30 Blood Pressure 138/79 02/06/19 10:30 Pulse Oximetry 93 02/06/19 10:30 Course <MINI Rueda - Last Filed: 02/06/19 21:46> Course Course Narrative: Patient was given a DuoNeb and prednisone within the emergency department, she stated she was feeling much better after the administration of medication. Orders Ordered: Discontinued Medications Albuterol (Ventolin) 2.5 mg INH NOW ONE Stop: 02/06/19 12:01 Last Admin: 02/06/19 12:04 Dose: 2.5 mg Documented by: RRALSTO Albuterol/Ipratropium (Duoneb) 3 ml INH NOW ONE Stop: 02/06/19 10:46 Last Admin: 02/06/19 10:54 Dose: 3 ml Documented by: ISADORATO Prednisone (Deltasone) 40 mg PO NOW ONE Stop: 02/06/19 11:26 Last Admin: 02/06/19 12:21 Dose: 40 mg Documented by: NISH Vital Signs Vital signs: Vital Signs - 8 hr 02/06/19 10:30 02/06/19 11:01 02/06/19 11:22 Temperature 98.2 F Pulse Rate 98 H 95 H 108 H Respiratory Rate 24 22 Blood Pressure 138/79 Blood Pressure [Left Arm] 121/81 Pulse Oximetry 93 97 02/06/19 11:55 02/06/19 12:06 02/06/19 12:16 Temperature Pulse Rate 92 H 91 H Respiratory Rate 20 Blood Pressure Blood Pressure [Left Arm] 138/82 Pulse Oximetry 93 100 <Sage Monreal DO - Last Filed: 02/07/19 06:58> Orders Ordered: Discontinued Medications Albuterol (Ventolin) 2.5 mg INH NOW ONE Stop: 02/06/19 12:01 Last Admin: 02/06/19 12:04 Dose: 2.5 mg Documented by: PAULALSTO Albuterol/Ipratropium (Duoneb) 3 ml INH NOW ONE Stop: 02/06/19 10:46 Last Admin: 02/06/19 10:54 Dose: 3 ml Documented by: ISADORATO Prednisone (Deltasone) 40 mg PO NOW ONE Stop: 02/06/19 11:26 Last Admin: 02/06/19 12:21 Dose: 40 mg Documented by: NISH Vital Signs Vital signs: Vital Signs - 8 hr 02/06/19 10:30 02/06/19 11:01 02/06/19 11:22 Temperature 98.2 F Pulse Rate 98 H 95 H 108 H Respiratory Rate 24 22 Blood Pressure 138/79 Blood Pressure [Left Arm] 121/81 Pulse Oximetry 93 97 02/06/19 11:55 02/06/19 12:06 02/06/19 12:16 Temperature Pulse Rate 92 H 91 H Respiratory Rate 20 Blood Pressure Blood Pressure [Left Arm] 138/82 Pulse Oximetry 93 100 [facility] - SOB/Dyspnea <MINI Rueda - Last Filed: 02/06/19 21:46> Medical Records Attestation: I reviewed the patient's medical records. Lab Data Attestation: I reviewed the patient's lab results. Labs: Lab Results 02/06/19 Range/Units 12:15 Influenza A & B (PCR) Negative (Negative) Imaging Data Chest x-ray: Radiologist's impression: [address] [place] [id number] XRay Report Signed Patient: Alyse Martin RMR#: [id number] : 1975Acct:[id number] Age/Sex: 43 / FDate of Service: 02/06/19 Loc: ED Accession Number: [id number] Procedure: XR chest 2V Ordering Provider: Sage Monreal D.O. PROCEDURE: XR CHEST 2V INDICATIONS: shortness of breath TECHNIQUE: 2 views of the chest were acquired. COMPARISON: [facility], , XR CHEST 1V, 01/25/2019, 21:39. FINDINGS: Surgical changes and devices: None. Lungs and pleura: Lungs are clear. No pleural effusions or pneumothorax. Mediastinum: Mediastinal contours are normal. Heart size is normal. Bones and chest wall: No suspicious bony abnormalities. Soft tissues appear unremarkable. IMPRESSION: No acute cardiopulmonary process is seen. Dictated by: Luis M Cool M.D. on 02/06/2019 at 9:59 Approved by: Luis M Cool M.D. on 02/06/2019 at 10:00 ECG Data Interpretation: Normal sinus rhythm, rate 99, IL interval 164, QTC 413, no ST elevation or ST depression. No ectopy. No T-wave abnormality. EKG was also viewed by Dr. Monreal. [facility] Narrative Medical decision making narrative: I suspect patient's symptoms are caused by a COPD exacerbation most likely cause by an additional respiratory illness. Differential for illness includes viral versus bacterial. However, because patient states she is coughing of a large amount of phlegm that is thinks her, she was prescribed azithromycin despite negative chest x-ray. Additionally, patient reports that she has an asthma component so prednisone was prescribed to help decrease shortness of breath symptoms. Less concern for hypoxia as patient states she usually sats in the 94-95% for which she has been during her emergency department stay. Strict return precautions given and follow-up instructions discussed. <Sage Monreal, - Last Filed: 02/07/19 06:58> Lab Data Labs: Lab Results 02/06/19 Range/Units 12:15 Influenza A & B (PCR) Negative (Negative) Discharge Plan Departure Patient Disposition: Home Clinical Impression: Acute exacerbation of chronic obstructive pulmonary disease (COPD), Bronchitis Discharge Date/Time: 02/06/19 13:21 Instructions: DI for Asthma -- Adult, DI for Chronic Obstructive Pulmonary Disease, DI for Viral Upper Respiratory Infection -- Adult Activity Restrictions/Additional Instructions: Thank you for entrusting me with your care today. As discussed, chest x-ray was negative for pneumonia. I prescribed you a oral steroids and an antibiotic. You will receive a call in a few days about your sputum sample if a change in antibiotics are needed. Please follow up with your primary care provider and the next few days for re-evaluation. Continue to use your inhaler as directed. Return emergency department if he develops high fevers, worsening shortness of breath, uncontrollable vomiting, chest pain, or other concerning symptoms. Prescriptions: New azithromycin 500 mg tablet See Rx Instructions .ROUTE .COMPLEX Qty: 6 RF: 0 prednisone 20 mg tablet 40 mg PO DAILY 5 Days RF: 0 No Action alprazolam [Xanax] 1 mg tablet 1 mg PO TID PRN (Reason: Anxiety) RF: 0 albuterol sulfate [ProAir HFA] 90 mcg/actuation Hfa Aerosol Inhaler 1 - 2 puff INHALATION Q4-6H PRN (Reason: shortness of breath) RF: 0 Spiriva with HandiHaler 18 mcg Capsule, W/Inhalation Device 1 cap INHALATION DAILY RF: 0 aaqzefqkcb-syjcmotetwzhh-cmos 50-300-40 mg capsule 1 tab PO Q4H PRN (Reason: Migraine Headache) RF: 0 ipratropium-albuterol 0.5 mg-3 mg(2.5 mg base)/3 mL solution for nebulization 3 ml Inhalation Q6H PRN (Reason: Cough) RF: 0 olanzapine 10 mg tablet 15 mg PO DAILY RF: 0 loratadine 10 mg tablet 10 mg PO DAILY RF: 0 esomeprazole magnesium 20 mg capsule,delayed release(DR/EC) 20 mg PO DAILY RF: 0 nicotine 21 mg/24 hr patch 24 hour 1 patch topical DAILY RF: 0 venlafaxine 225 mg tablet extended release 24hr 225 mg PO DAILY RF: 0 Dulera 200-5 mcg/actuation HFA aerosol inhaler 2 puff inhalation BID RF: 0 prednisone 10 mg tablets,dose pack See Rx Instructions .ROUTE .COMPLEX Qty: 15 RF: 0 azithromycin 250 mg tablet See Rx Instructions .ROUTE .COMPLEX Qty: 6 RF: 0 <Sage Monreal, DO - Last Filed: 02/07/19 06:58> Sign Out Provider Sign Out Attestation: I was available for consultation during this patient's emergency department visit. This chart is signed by myself for administrative purposes only. I did not have direct contact with this patient during this visit. They were seen independently by the APC.
[2019-02-06] MEDS: ALBUTEROL 2.5 MG/3 ML NEB (ADULT) INH (12:04)
[2019-02-06] MEDS: predniSONE 20 MG TABLET 40 MG PO (12:21)
--- NOTE | 2019-02-06 12:22 | PC.NURSE ---
walked to bathroom w/o difficulty, maintained oxygen saturations > 94%.
[2019-02-06 12:48] LABS: Influenza A and B by PCR Rapid Negative (Negative)
== END 2019-02-06 13:21 | disposition home or self-care (01) ==
PROVIDERS: Emergency Provider Nurse Practitioner
DX: J44.1 Chronic obstructive pulmonary disease with (acute) exacerbation (principal); J40 Bronchitis, not specified as acute or chronic
CPT/HCPCS: 71046; 87070; 87205; 87400; 87502; 94640; 99283; 99284; J7613

== ENCOUNTER 2019-04-22 11:14 | Emergency (ER) | payer OTHER, MEDICAID, SELFPAY ==
[2018-09-17 16:39] VITALS: BMI 43.9
[2019-04-22 11:25] VITALS: BP 153/89; PULSE 101; RESP 20; TEMP 36.1; O2SAT 97; BMI 46.5
[2019-04-22 11:29] VITALS: PULSE 86; O2SAT 94
[2019-04-22] MEDS: ALBUTEROL/IPRATROPIUM 3 ML AMPUL 6 ML INH (11:29)
--- NOTE | 2019-04-22 11:38 | ED.URI ---
HPI - URI/Sore Throat General Chief Complaint: Upper Respiratory Symptoms Stated Complaint: Headache,chest pain, coughing fits.. Time Seen by Provider: 04/22/19 11:20 Source: patient Mode of arrival: Ambulatory Limitations: no limitations History of Present Illness HPI Narrative: Patient is a 44-year-old female with history of COPD and asthma sleep apnea presenting with cough body aches and chest heaviness. She says other people at home have been sick as well there's been some nausea and vomiting but her biggest problem and complaint today is her breathing. She gets coughing spells and cannot catch her breath. MD Complaint: fever and cough Severity: moderate Related Data Home Medications Medication Instructions Recorded Confirmed Spiriva with HandiHaler 1 cap INHALATION DAILY 09/24/17 04/22/19 albuterol sulfate [ProAir HFA] 1 - 2 puff INHALATION Q4-6H PRN 09/24/17 04/22/19 alprazolam [Xanax] 1 mg PO TID PRN 09/24/17 04/22/19 cuwrkocxxf-rkoaiesiaovgo-vytn 1 tab PO Q4H PRN 09/24/17 04/22/19 esomeprazole magnesium 20 mg PO DAILY 09/13/18 04/22/19 ipratropium-albuterol 3 ml INHALATION Q6H PRN 09/13/18 04/22/19 loratadine 10 mg PO DAILY 09/13/18 04/22/19 olanzapine 15 mg PO DAILY 09/13/18 04/22/19 mometasone-formoterol [Dulera] 2 puff INHALATION DAILY 12/10/18 04/22/19 buspirone 15 mg PO TID 04/22/19 04/22/19 hydrochlorothiazide 25 mg PO DAILY 04/22/19 04/22/19 metformin 500 mg PO BID 04/22/19 04/22/19 Previous Rx's Medication Instructions Recorded codeine-guaifenesin 5 ml PO Q6H PRN #100 ml 04/22/19 prednisone 10 mg PO DAILY #30 tab 04/22/19 Allergies Allergy/AdvReac Type Severity Reaction Status Date / Time Penicillins [PENICILLINS] Allergy Unknown Verified 04/22/19 11:25 Review of Systems Review of Systems Narrative: GENERAL: Denies chills, fatigue, malaise, fever, sweats, travel HEENT: Denies sinus pain, ear pain, sore throat, difficulty swallowing, neck pain RESPIRATORY: See HPI CARDIOVASCULAR: Denies chest pain, palpitations, orthopnea, edema GASTROINTESTINAL: Denies nausea, vomiting, abdominal pain, diarrhea, constipation, melena. : Denies dysuria, frequency, incontinence, hematuria, urinary retention, flank pain. MUSCULOSKELETAL: Denies weakness, joint pain, or bony pain SKIN: No rash, no erythema, no pruritus NEUROLOGIC: Denies weakness, dizziness, headache, numbness, change in speech, confusion PSYCHIATRIC: No concerning psychosocial issues. 12 point review of systems is negative except for those stated above and HPI Patient History Medical History Acute bronchitis with chronic obstructive pulmonary disease (COPD) (Acute) Anxiety (Chronic) Bipolar 1 disorder (Chronic) Chronic respiratory failure with hypoxia (Chronic) COPD (chronic obstructive pulmonary disease) (Chronic) Depression (Chronic) GERD (gastroesophageal reflux disease) (Chronic) Hypertension (Acute) Migraine (Chronic) Sleep apnea (Chronic) Tobacco dependence (Chronic) Vaginal prolapse (Chronic) Surgical History H/O: hysterectomy (Chronic) History of appendectomy (Chronic) Social History household members: spouse and children Smoking Status: Current every day smoker Smoking Status: Current every day smoker alcohol intake frequency: 0-2 drinks per day Substance Use Type: does not use Exam Initial Vital Signs Initial Vital Signs: Vital Signs Temperature 97 F L 04/22/19 11:25 Pulse Rate 101 H 04/22/19 11:25 Respiratory Rate 20 04/22/19 11:25 Blood Pressure 153/89 H 04/22/19 11:25 Pulse Oximetry 97 04/22/19 11:25 GENERAL: Overweight female appears to not feel well HEENT: Head atraumatic,EOMI, pupils reactive, face symmetric CARDIOVASCULAR: Regular rate and rhythm without murmurs, rubs or gallops. RESPIRATORY: Decreased breath sounds bilaterally speaks in full sentences ABDOMEN: Soft, nontender. Normoactive bowel sounds all 4 quadrants. No guarding or rebound. EXTREMITIES: Normal range of motion, no clubbing or edema. Neurovascularly intact NEUROLOGICAL: Alert and oriented x4.Normal gait and speech. Cranial nerves II through XII grossly intact. SKIN: Warm, dry, no laceration, no petechiae, no rashes or lesions. Course Orders Ordered: ED Orders 04/22/19 11:24 EKG-12 Lead Stat 04/22/19 11:25 Flu test [Influenza A & B (PCR)] Stat 04/22/19 11:45 XR chest 1V Stat 04/22/19 11:55 B Type Natriuretic Peptide Stat Complete Blood Count AUTO DIFF Stat Comprehensive Metabolic Panel Stat Lipase Stat Troponin & CK Cardiac Panel Stat Discontinued Medications Albuterol/Ipratropium (Duoneb) 6 ml INH NOW ONE Stop: 04/22/19 11:27 Last Admin: 04/22/19 11:29 Dose: 6 ml Documented by: RONNIE Sodium Chloride (Normal Saline 0.9%) 1,000 mls @ 1,000 mls/hr IV CONT MAVIS Last Infusion: 04/22/19 13:20 Dose: 0 mls/hr Documented by: Admin: 04/22/19 12:02 Dose: 1,000 mls/hr Documented by: ADI Ketorolac Tromethamine (Toradol) 30 mg IV NOW ONE Stop: 04/22/19 12:08 Last Admin: 04/22/19 12:09 Dose: 30 mg Documented by: ADI Lidocaine HCl (Xylocaine 1% (Pf)) 1 ml SUBCUT NOW ONE Stop: 04/22/19 13:01 Last Admin: 04/22/19 13:06 Dose: 1 ml Documented by: ADI Lorazepam (Ativan) 0.5 mg IV NOW ONE Stop: 04/22/19 12:53 Last Admin: 04/22/19 12:56 Dose: 0.5 mg Documented by: ADI Methylprednisolone (Solu-Medrol 125 Mg Vial) 125 mg IV NOW ONE Stop: 04/22/19 11:51 Last Admin: 04/22/19 12:02 Dose: 125 mg Documented by: ADI Morphine Sulfate (Morphine) 4 mg IV NOW ONE Stop: 04/22/19 13:38 Last Admin: 04/22/19 13:45 Dose: 4 mg Documented by: ADI Ondansetron HCl (Zofran) 4 mg IV NOW ONE Stop: 04/22/19 13:38 Last Admin: 04/22/19 13:45 Dose: 4 mg Documented by: SCANAPO Vital Signs Vital signs: Vital Signs - 8 hr 04/22/19 11:25 04/22/19 11:29 04/22/19 13:00 Temperature 97 F L Pulse Rate 101 H 86 83 Respiratory Rate 20 25 H Blood Pressure 153/89 H Blood Pressure [Left Arm] 128/87 Pulse Oximetry 97 94 98 04/22/19 14:00 Temperature Pulse Rate 91 H Respiratory Rate 18 Blood Pressure 147/89 H Blood Pressure [Left Arm] Pulse Oximetry 92 MDM - URI/Sore Throat Lab Data Attestation: I reviewed the patient's lab results. Result diagrams: 04/22/19 11:55 04/22/19 11:55 Labs: Lab Results 04/22/19 04/22/19 04/22/19 Range/Units 11:25 11:55 11:55 WBC 10.3 (4.5-11.0) X10^3/uL RBC 4.95 (4.0-5.2) X10^6/uL Hgb 16.0 (12.0-16.0) g/dL Hct 45.2 (36-46) % MCV 91.3 (80-100) fL MCH 32.3 (26-34) PG MCHC 35.3 (30-36) % RDW 13.5 (11.6-14.8) % Plt Count 214 (150-400) X10^3/uL Neut % (Auto) 56.1 (50-75) % Lymph % (Auto) 31.7 (25-40) % Hodgeman % (Auto) 8.4 (3-14) % Eos % (Auto) 3.0 (2-4) % Baso % (Auto) 0.8 (0-2) % Neut # (Auto) 5700 (8798-9313) /uL Lymph # (Auto) 3200 (1872-1566) /uL Hodgeman # (Auto) 900 (0-900) /uL Eos # (Auto) 300 (0-450) /uL Baso # (Auto) 100 (0-100) /uL Sodium 138 (137-145) mmol/L Potassium 4.3 (3.4-5.1) mmol/L Chloride 100 (98-107) mmol/L Carbon Dioxide 29 (22-32) mmol/L BUN 9 (7-17) mg/dL Creatinine 0.60 (0.52-1.04) mg/dL Estimated GFR > 60.0 (>60) mL/min BUN/Creatinine Ratio 15.0 (6-22) Glucose 87 (70-100) mg/dL Calcium 9.1 (8.4-10.2) mg/dL Total Bilirubin 0.9 (0.2-1.3) mg/dL AST 68 H (14-36) IU/L ALT 63 H (<35) IU/L Alkaline Phosphatase 83 (38-126) U/L Total Creatine Kinase 112 (30-135) U/L CK-MB (CK-2) 0.59 (<2.37) ng/mL CK-MB (CK-2) Rel Index 0.5 L (1.5-5.0) % Troponin I < 0.012 (0.01-0.034) ng/mL B-Natriuretic Peptide < 100 (<100) Total Protein 7.6 (6.3-8.2) g/dL Albumin 4.2 (3.5-5.0) g/dL Globulin 3.4 (1.7-4.1) g/dL Albumin/Globulin Ratio 1.2 (1.0-2.8) Lipase 57 (23-300) U/L Influenza A (RT-PCR) Flu a negative (NEGATIVE) Influenza B (RT-PCR) Flu b negative (NEGATIVE) Imaging Data Chest x-ray: Radiologist's Impression: PROCEDURE: XR CHEST 1V INDICATIONS: Shortness of breath and cough TECHNIQUE: One view of the chest was acquired. COMPARISON: [facility], , XR CHEST 2 VIEWS, 03/31/2019, 15:[address]. [facility], , XR CHEST 2V, 02/06/2019, 10:41. [facility], , CHEST 2 VIEW, 08/16/2017, 12:54. FINDINGS: Surgical changes and devices: None. Lungs and pleura: Lungs are clear. No pleural effusions or pneumothorax. Mediastinum: Mediastinal contours appear normal. Heart size is normal. Bones and chest wall: No suspicious bony lesions. Overlying soft tissues appear unremarkable. IMPRESSION: No acute cardiopulmonary process is evident. Dictated by: Shay West M.D. on 04/22/2019 at 11:10 Approved by: Shay West M.D. on 04/22/2019 at 11:11 ECG Data Attestation: I personally reviewed and interpreted this ECG as follows: Prior ECG tracings: available for review Interpretation: Sinus rhythm rate 91 year interval 167 his QRS [address] elevation depression or T-wave inversions no sign of ischemia MDM Narrative Medical decision making narrative: Patient has obvious of bronchospastic cough she has multiple episodes in the emergency department which do not improve with albuterol. Nebulized lidocaine is also tried which seemed help briefly but then his did not. She was finally given a dose of morphine which did seem to help. I've written her prescription for guaifenesin with codeine along with prednisone. At this time x-ray blood work and influenza are negative. No need for antibiotics. Discharge Plan Departure Patient Disposition: Home Clinical Impression: Upper respiratory infection Qualifiers: URI type: unspecified viral URI Qualified Code(s): J06.9 - Acute upper respiratory infection, unspecified Discharge Date/Time: 04/22/19 14:00 Instructions: DI for Viral Upper Respiratory Infection -- Adult Activity Restrictions/Additional Instructions: *You have been diagnosed with upper respiratory infection *What to do: At this time no need for antibiotics, x-ray and blood work are overall reassuring influenza negative *Continue to take medications as directed--> SENT TO [facility] IN [place] Prednisone 40 mg for 3 days, 30 mg for 3 days, 20 mg for 3 days, 10 mg for 3 days Albuterol 1-2 every 4 hours if needed for cough Cough syrup with codeine 5 mL every 6 hours if needed for severe cough *Follow up with your primary care provider in 2-3 days *Return to ER if you should have increasing shortness of breath chest pain passing out or any new, worsening or concerning symptoms Prescriptions: New prednisone 10 mg tablet 10 mg PO DAILY Qty: 30 RF: 0 codeine-guaifenesin 8-200 mg/5 mL liquid 5 ml PO Q6H PRN (Reason: cough) Qty: 100 RF: 0 No Action alprazolam [Xanax] 1 mg tablet 1 mg PO TID PRN (Reason: Anxiety) RF: 0 albuterol sulfate [ProAir HFA] 90 mcg/actuation Hfa Aerosol Inhaler 1 - 2 puff INHALATION Q4-6H PRN (Reason: shortness of breath) RF: 0 Spiriva with HandiHaler 18 mcg Capsule, W/Inhalation Device 1 cap INHALATION DAILY RF: 0 ckqsahtaok-cfssjqzspoukt-ubhe 50-300-40 mg capsule 1 tab PO Q4H PRN (Reason: Migraine Headache) RF: 0 ipratropium-albuterol 0.5 mg-3 mg(2.5 mg base)/3 mL solution for nebulization 3 ml Inhalation Q6H PRN (Reason: Cough) RF: 0 olanzapine 10 mg tablet 15 mg PO DAILY RF: 0 loratadine 10 mg tablet 10 mg PO DAILY RF: 0 esomeprazole magnesium 20 mg capsule,delayed release(DR/EC) 20 mg PO DAILY RF: 0 buspirone 15 mg tablet 15 mg PO TID RF: 0 metformin 500 mg tablet 500 mg PO BID RF: 0 hydrochlorothiazide 25 mg tablet 25 mg PO DAILY RF: 0 Dulera 200-5 mcg/actuation HFA aerosol inhaler 2 puff inhalation DAILY RF: 0
--- NOTE | 2019-04-22 11:45 | DI.RAD.S_ITS ---
PROCEDURE: XR CHEST 1V INDICATIONS: Shortness of breath and cough TECHNIQUE: One view of the chest was acquired. COMPARISON: [facility], CR, XR CHEST 2 VIEWS, 03/31/2019, 15:00. [facility], CR, XR CHEST 2V, 02/06/2019, 10:41. [facility], CR, CHEST 2 VIEW, 08/16/2017, 12:54. FINDINGS: Surgical changes and devices: None. Lungs and pleura: Lungs are clear. No pleural effusions or pneumothorax. Mediastinum: Mediastinal contours appear normal. Heart size is normal. Bones and chest wall: No suspicious bony lesions. Overlying soft tissues appear unremarkable. IMPRESSION: No acute cardiopulmonary process is evident. Dictated by: Shay West M.D. on 04/22/2019 at 11:10 Approved by: Shay West M.D. on 04/22/2019 at 11:11
[2019-04-22 12:02] LABS: Influenza A - CEPHEID Flu A NEGATIVE (NEGATIVE); Influenza B - CEPHEID Flu B NEGATIVE (NEGATIVE)
[2019-04-22] MEDS: SODIUM CHLORIDE 0.9% 1,000 ML 1000 ML IV (12:02)
[2019-04-22] MEDS: methylPREDNISolone 125 MG/2 ML VIAL IV (12:02)
[2019-04-22 12:03] LABS: Add Manual Diff / Slide Review NO; Basophils Absolute Auto 100 /uL (0-100); Basophils Percent Auto 0.8 % (0-2); Eosinophils Absolute Auto 300 /uL (0-450); Hematocrit 45.2 % (36-46); Lymphocytes Absolute Auto 3200 /uL (1100-4500); Lymphocytes Percent Auto 31.7 % (25-40); Mean Corpuscular HGB Conc 35.3 % (30-36); Mean Corpuscular Hemoglobin 32.3 PG (26-34); Mean Corpuscular Volume 91.3 fL (80-100); Monocytes Absolute Auto 900 /uL (0-900); Monocytes Percent Auto 8.4 % (3-14); Neutrophils Absolute Auto 5700 /uL (1500-7000); Neutrophils Percent Auto 56.1 % (50-75); Platelet Count 214 X10^3/uL (150-400); Red Blood Cell Count 4.95 X10^6/uL (4.0-5.2); Red Cell Distribution Width 13.5 % (11.6-14.8); White Blood Cell Count 10.3 X10^3/uL (4.5-11.0)
[2019-04-22] MEDS: KETOROLAC 60 MG/2 ML VIAL 30 MG IV (12:09)
[2019-04-22 12:12] LABS: Alanine Aminotransferase 63 IU/L (<35); Albumin 4.2 g/dL (3.5-5.0); Albumin Globulin Ratio 1.2 (1.0-2.8); Alkaline Phosphatase 83 U/L (38-126); Aspartate Aminotransferase 68 IU/L (14-36); Bilirubin Total 0.9 mg/dL (0.2-1.3); Blood Urea Nitrogen 9 mg/dL (7-17); Calcium 9.1 mg/dL (8.4-10.2); Carbon Dioxide 29 mmol/L (22-32); Chloride 100 mmol/L (98-107); Creatine Kinase 112 U/L (30-135); Estimated Glomerular Filt Rate > 60.0 mL/min (>60); Globulin 3.4 g/dL (1.7-4.1); Glucose 87 mg/dL (70-100); Lipase 57 U/L (23-300); Potassium 4.3 mmol/L (3.4-5.1); Sodium 138 mmol/L (137-145); Total Protein 7.6 g/dL (6.3-8.2)
[2019-04-22 12:13] LABS: HEMOLYSIS 135 (0-50)
[2019-04-22 12:22] LABS: B Type Natriuretic Peptide < 100 (<100)
[2019-04-22 12:24] LABS: Troponin I < 0.012 ng/mL (0.01-0.034)
[2019-04-22 12:27] LABS: CKMB % Relative Index 0.5 % (1.5-5.0); Creatine Kinase MB 0.59 ng/mL (<2.37)
[2019-04-22] MEDS: LORazepam 2 MG/ML INJ 0.5 MG IV (12:56)
[2019-04-22 13:00] VITALS: BP 128/87; PULSE 83; RESP 25; O2SAT 98
[2019-04-22] MEDS: LIDOCAINE 1% (PF) 1 ML SUBCUT (13:06)
[2019-04-22] MEDS: MORPHINE 4 MG/ML INJ IV (13:45)
[2019-04-22] MEDS: ONDANSETRON 4 MG/2 ML INJ IV (13:45)
[2019-04-22 14:00] VITALS: BP 147/89; PULSE 91; RESP 18; O2SAT 92
== END 2019-04-22 14:00 | disposition home or self-care (01) ==
PROVIDERS: Emergency Provider Emergency Medicine
DX: J06.9 Acute upper respiratory infection, unspecified (principal); R06.02 Shortness of breath; I10 Essential (primary) hypertension; R11.2 Nausea with vomiting, unspecified
CPT/HCPCS: 36415; 71045; 80053; 82550; 82553; 83690; 83880; 84484; 85025; 87502; 93005; 94640; 96361; 96374; 96375; 99284; 99285; J1885; J2060; J2270; J2405; J2930

== ENCOUNTER 2019-06-07 17:08 | Emergency (ER) | payer OTHER, MEDICAID, SELFPAY ==
[2018-09-17 16:39] VITALS: BMI 43.9
[2019-06-07 17:12] VITALS: BP 147/100; PULSE 99; RESP 38; TEMP 36.6; O2SAT 98; BMI 49.4
[2019-06-07] MEDS: IPRATROPIUM 0.5 MG/2.5 ML NEB INH (17:38)
[2019-06-07 17:42] VITALS: PULSE 100; RESP 20; O2SAT 99
--- NOTE | 2019-06-07 18:27 | DI.RAD.S_ITS ---
PROCEDURE: XR CHEST 2V INDICATIONS: cough, chest pain, hx of COPD TECHNIQUE: 2 views of the chest were acquired. COMPARISON: [facility], CR, XR CHEST 1V, 04/22/2019, 11:48. FINDINGS: Surgical changes and devices: None. Lungs and pleura: Lungs are clear. No pleural effusions or pneumothorax. Mediastinum: Mediastinal contours are normal. Heart size is normal. Bones and chest wall: No suspicious bony abnormalities. Soft tissues appear unremarkable. IMPRESSION: Normal chest. Dictated by: Aby Olivarez M.D. on 06/07/2019 at 20:08 Approved by: Aby Olivarez M.D. on 06/07/2019 at 20:08
[2019-06-07 18:39] VITALS: BP 138/88; PULSE 93; RESP 24; O2SAT 94
[2019-06-07] MEDS: methylPREDNISolone 125 MG/2 ML VIAL IV (19:22)
[2019-06-07 19:26] LABS: Add Manual Diff / Slide Review NO; Basophils Absolute Auto 100 /uL (0-100); Basophils Percent Auto 0.7 % (0-2); Eosinophils Absolute Auto 300 /uL (0-450); Hemoglobin 15.2 g/dL (12.0-16.0); Lymphocytes Absolute Auto 2200 /uL (1100-4500); Lymphocytes Percent Auto 26.3 % (25-40); Mean Corpuscular HGB Conc 34.5 % (30-36); Mean Corpuscular Volume 92.8 fL (80-100); Monocytes Absolute Auto 600 /uL (0-900); Monocytes Percent Auto 7.7 % (3-14); Neutrophils Absolute Auto 5100 /uL (1500-7000); Neutrophils Percent Auto 61.3 % (50-75); Platelet Count 165 X10^3/uL (150-400); Red Blood Cell Count 4.74 X10^6/uL (4.0-5.2); Red Cell Distribution Width 14.1 % (11.6-14.8); White Blood Cell Count 8.4 X10^3/uL (4.5-11.0)
[2019-06-07 19:38] LABS: Creatine Kinase 76 U/L (30-135); Lactate (Lactic Acid) 1.7 mmol/L (0.7-2.1); Magnesium 1.9 mg/dL (1.6-2.3)
[2019-06-07 19:39] LABS: Alanine Aminotransferase 64 IU/L (<35); Albumin Globulin Ratio 1.1 (1.0-2.8); Alkaline Phosphatase 93 U/L (38-126); Aspartate Aminotransferase 61 IU/L (14-36); Bilirubin Total 0.5 mg/dL (0.2-1.3); Blood Urea Nitrogen 12 mg/dL (7-17); Calcium 9.3 mg/dL (8.4-10.2); Carbon Dioxide 34 mmol/L (22-32); Chloride 99 mmol/L (98-107); Estimated Glomerular Filt Rate > 60.0 mL/min (>60); Globulin 3.5 g/dL (1.7-4.1); Glucose 109 mg/dL (70-100); Lipase 66 U/L (23-300); Potassium 3.4 mmol/L (3.4-5.1); Sodium 140 mmol/L (137-145); Total Protein 7.5 g/dL (6.3-8.2)
[2019-06-07 19:40] LABS: HEMOLYSIS 59 (0-50)
[2019-06-07] MEDS: ALBUTEROL 2.5 MG/3 ML NEB (ADULT) INH (19:48)
[2019-06-07 19:50] LABS: NT-proBNP (BNP-Adult 18+) 73 pg/mL (<125); Troponin I < 0.012 ng/mL (0.01-0.034)
[2019-06-07] MEDS: MORPHINE 4 MG/ML INJ IV (20:04)
[2019-06-07] MEDS: ONDANSETRON 4 MG/2 ML INJ IV (20:04)
[2019-06-07] MEDS: SODIUM CHLORIDE 0.9% 500 ML 1000 ML IV (20:04)
[2019-06-07 20:28] LABS: Adenovirus Not Detected (Not Detect); Bordetella pertussis Not Detected (Not Detect); Chlamydophila pneumoniae Not Detected (Not Detect); Coronavirus 229E Not Detected (Not Detect); Coronavirus HKU1 Not Detected (Not Detect); Coronavirus NL 63 Not Detected (Not Detect); Coronavirus OC43 Not Detected (Not Detect); Human Metapneumovirus Not Detected (Not Detect); Human Rhinovirus/Enterovirus Detected (Not Detect); Influenza A Not Detected (Not Detect); Influenza B Not Detected (Not Detect); Mycoplasma pneumoniae Not Detected (Not Detect); Parainfluenza Virus 1 Not Detected (Not Detect); Parainfluenza Virus 2 Not Detected (Not Detect); Parainfluenza Virus 3 Not Detected (Not Detect); Parainfluenza Virus 4 Not Detected (Not Detect); Respiratory Syncytial Virus Not Detected (Not Detect)
[2019-06-07 20:37] VITALS: BP 135/68; PULSE 91; RESP 25; O2SAT 96
[2019-06-07 21:06] VITALS: BP 125/76; PULSE 91; RESP 23; O2SAT 95
--- NOTE | 2019-06-07 21:17 | ED.SOB ---
HPI - SOB/Dyspnea <MINI Mendoza - Last Filed: 06/07/19 21:39> General Chief Complaint: Shortness of Breath/Dyspnea Stated Complaint: STAGE 4 COPD/ SOB Time Seen by Provider: 06/07/19 18:08 Source: patient Mode of arrival: Ambulatory Limitations: no limitations History of Present Illness HPI Narrative: This is a 44-year-old female, smoker, who presents to ED with chief complain of short of breath, nonproductive cough mostly, constant bilateral lower chest wall discomfort, headache, nausea and vomiting. Patient reports her symptoms started 3 days ago feeling run down and cough. Patient denies fever, chills, recent weight gain. Patient denies recent foreign travels but was exposed to family member who had cold symptoms recently. She has been using her all her inhalers including ProAir, Spiriva and Dulera without much improvement in her symptoms. Patient is O2 dependent COPD, emphysema, bipolar, BLAS who uses O2 by nasal cannula on 4 L throughout the day. Patient takes water pill for lower extremity swellings but denies history of heart failure. Patient was diagnosed with parainfluenza in August last year and was hospitalized for 3 days. Patient reports when she receives nebulizer treatment with albuterol, patient gets upper airway spasm which causes coughing fits from this but does not have trouble using inhalers. Related Data Home Medications Medication Instructions Recorded Confirmed Spiriva with HandiHaler 1 cap INHALATION DAILY 09/24/17 06/07/19 albuterol sulfate [ProAir HFA] 1 - 2 puff INHALATION Q4-6H PRN 09/24/17 06/07/19 alprazolam [Xanax] 1 mg PO TID PRN 09/24/17 06/07/19 uokfrmrewi-[id number] 1 tab PO Q4H PRN 09/24/17 06/07/19 esomeprazole magnesium 20 mg PO DAILY 09/13/18 06/07/19 ipratropium-albuterol 3 ml INHALATION Q6H PRN 09/13/18 06/07/19 loratadine 10 mg PO DAILY 09/13/18 06/07/19 olanzapine 15 mg PO DAILY 09/13/18 06/07/19 mometasone-formoterol [Dulera] 2 puff INHALATION DAILY 12/10/18 06/07/19 buspirone 15 mg PO TID 04/22/19 06/07/19 hydrochlorothiazide 25 mg PO DAILY 04/22/19 06/07/19 metformin 500 mg PO DAILY 06/07/19 06/07/19 Previous Rx's Medication Instructions Recorded codeine-guaifenesin 7.5 ml PO Q6H PRN #473 ml MDD 45 06/07/19 ml / 24 hrs prednisone 40 mg PO DAILY 5 Days tab 06/07/19 Allergies Allergy/AdvReac Type Severity Reaction Status Date / Time Penicillins [PENICILLINS] Allergy Unknown Verified 06/07/19 17:17 Review of Systems <MINI Mendoza - Last Filed: 06/07/19 21:39> Review of Systems Narrative: General: Denies fever, chills, (+)fatigue, (+)malaise, sweats. HEENT: Denies sinus pain, ear pain, sore throat, difficulty swallowing, dizziness. Respiratory: See HPI Cardiovascular: Denies chest pain, (+) lower chest wall/rib pain, palpitations, orthopnea, edema. Gastrointestinal: Denies (+) nausea, (+) vomiting, abdominal pain, diarrhea, constipation, melena. : Denies dysuria, frequency, incontinence, hematuria, urinary retention. Musculoskeletal: Denies weakness, joint pain or bony pain. Skin: Denies rash, skin lesions, or other. Neurologic: Denies weakness, headache, numbness, change in speech, confusion, seizures, incoordination. Psychiatric: No concerning psychosocial issues. 12-point review of systems is negative except for those stated above. Patient History <MINI Mendoza - Last Filed: 06/07/19 21:39> Medical History Acute bronchitis with chronic obstructive pulmonary disease (COPD) (Acute) Anxiety (Chronic) Bipolar 1 disorder (Chronic) Chronic respiratory failure with hypoxia (Chronic) COPD (chronic obstructive pulmonary disease) (Chronic) Depression (Chronic) GERD (gastroesophageal reflux disease) (Chronic) Hypertension (Acute) Migraine (Chronic) Sleep apnea (Chronic) Tobacco dependence (Chronic) Vaginal prolapse (Chronic) Surgical History H/O: hysterectomy (Chronic) History of appendectomy (Chronic) Social History household members: spouse and children Smoking Status: Current every day smoker Smoking Status: Current every day smoker tobacco type: cigarettes alcohol intake frequency: 0-2 drinks per day Substance Use Type: does not use Exam <MINI Mendoza - Last Filed: 06/07/19 21:39> Narrative Exam Narrative: GEN: Alert, oriented x 3, well nourished, and ill-appearing. Head: Normal cephalic, atraumatic. No scalp or temporal tenderness, palpable mass or rash. EYES: Pupils are equal, round, and reactive to light and accommodation. Extraocular muscles are intact bilaterally. There is no subconjunctival hemorrhage, exudate and sclera non-icteric. ENT: Bilateral auditory canals and tympanic membranes clear. Hearing grossly intact. Nose without bleeding, purulent discharge or deviation. Facial sinuses nontender to palpate. Mucous membrane moist, no mucosal lesion. Throat without erythema, tonsillar hypertrophy or exudate. Uvula in midline, airway patent. Neck: Trachea in midline. No JVD, non-tender without lymphadenopathy. No masses or thyroid megaly. Supple, non-tender and no meningeal signs. CARDIAC: Normal tachy rate without murmurs, gallops, or rubs. Bilateral lower chest wall/rib tenderness without rashes. No peripheral edema, cyanosis or pallor. Capillary refill is less than 2 seconds. RESPIRATORY: Lungs are decreased in all lobes with faint scattered wheezes to auscultate bilaterally. Frequent nonproductive cough. No rales, or rhonchi appreciated. No stridor, respiratory distress, increase work of breathing, or accessary muscle used. ABD: Abdomen obese, soft, and nontender. No guarding or rebound tenderness to palpate. Bowel sounds are normal in all 4 quadrants. There is no palpable masses or organomegaly. EXT: Full painless ROM of all extremities with no loss of sensation, strength, effusion or edema. SKIN: Warm, dry, normal color for patient. No erythema, lesions or rash over visible areas. BACK: Nontender without deformity or crepitance. No flank tenderness. NEUROLOGICAL: Alert and oriented to place, time and person. Sensation and motor function intact bilaterally. No facial droops, dysphasia. PSYCHIATRIC: Good judgement and reason, without hallucinations, abnormal affect or abnormal behaviors during the examination. Patient is not suicidal. Initial Vital Signs Initial Vital Signs: Vital Signs Temperature 97.9 F 06/07/19 17:12 Pulse Rate 99 H 06/07/19 17:12 Respiratory Rate 38 H 06/07/19 17:12 Blood Pressure 147/100 H 06/07/19 17:12 Pulse Oximetry 98 06/07/19 17:12 <Octavio Nance DO - Last Filed: 06/08/19 03:29> Initial Vital Signs Initial Vital Signs: Vital Signs Temperature 97.9 F 06/07/19 17:12 Pulse Rate 99 H 06/07/19 17:12 Respiratory Rate 38 H 06/07/19 17:12 Blood Pressure 147/100 H 06/07/19 17:12 Pulse Oximetry 98 06/07/19 17:12 Scores <MINI Mendoza - Last Filed: 06/07/19 21:39> GCS Domi coma scale eye opening: Spontaneous Domi coma scale verbal response: Orientated Domi coma scale motor response: Obey commands [place] coma scale total score: 15 Course <MINI Mendoza - Last Filed: 06/07/19 21:39> Orders Ordered: ED Orders 06/07/19 19:05 Complete Blood Count AUTO DIFF Stat Comprehensive Metabolic Panel Stat Lactate (Lactic Acid) Stat Lipase Stat Magnesium Stat NT-proBNP (BNP-Adult 18+) Stat Troponin & CK Cardiac Panel Stat 06/07/19 19:10 Respiratory Panel (Film Array) Stat Discontinued Medications Albuterol (Ventolin) 2.5 mg INH NOW ONE Stop: 06/07/19 19:16 Last Admin: 06/07/19 19:48 Dose: 2.5 mg Documented by: LAELFCHRISTIAN Sodium Chloride (Normal Saline 0.9%) 500 mls @ 1,000 mls/hr IV BOLUS ONE Stop: 06/07/19 19:57 Last Infusion: 06/07/19 21:15 Dose: 0 mls/hr Documented by: Admin: 06/07/19 20:04 Dose: 1,000 mls/hr Documented by: NEYOTEM Ipratropium [place] (Atrovent Neb) 0.5 mg INH NOW ONE Stop: 06/07/19 17:29 Last Admin: 06/07/19 17:38 Dose: 0.5 mg Documented by: TON Methylprednisolone (Solu-Medrol 125 Mg Vial) 125 mg IV NOW ONE Stop: 06/07/19 18:27 Last Admin: 06/07/19 19:22 Dose: 125 mg Documented by: JUAN Morphine Sulfate (Morphine) 4 mg IV NOW ONE Stop: 06/07/19 19:28 Last Admin: 06/07/19 20:04 Dose: 4 mg Documented by: TEODORA Ondansetron HCl (Zofran) 4 mg IV NOW ONE Stop: 06/07/19 19:28 Last Admin: 06/07/19 20:04 Dose: 4 mg Documented by: TEODORA Vital Signs Vital signs: Vital Signs - 8 hr 06/07/19 20:37 06/07/19 21:06 Pulse Rate 91 H 91 H Respiratory Rate 25 H 23 Blood Pressure [Left Arm] 135/68 125/76 Pulse Oximetry 96 95 <Octavio Nance DO - Last Filed: 06/08/19 03:29> Orders Ordered: ED Orders 06/07/19 19:05 Complete Blood Count AUTO DIFF Stat Comprehensive Metabolic Panel Stat Lactate (Lactic Acid) Stat Lipase Stat Magnesium Stat NT-proBNP (BNP-Adult 18+) Stat Troponin & CK Cardiac Panel Stat 06/07/19 19:10 Respiratory Panel (Film Array) Stat Discontinued Medications Albuterol (Ventolin) 2.5 mg INH NOW ONE Stop: 06/07/19 19:16 Last Admin: 06/07/19 19:48 Dose: 2.5 mg Documented by: IRISH Sodium Chloride (Normal Saline 0.9%) 500 mls @ 1,000 mls/hr IV BOLUS ONE Stop: 06/07/19 19:57 Last Infusion: 06/07/19 21:15 Dose: 0 mls/hr Documented by: Admin: 06/07/19 20:04 Dose: 1,000 mls/hr Documented by: TEODORA Ipratropium [place] (Atrovent Neb) 0.5 mg INH NOW ONE Stop: 06/07/19 17:29 Last Admin: 06/07/19 17:38 Dose: 0.5 mg Documented by: TON Methylprednisolone (Solu-Medrol 125 Mg Vial) 125 mg IV NOW ONE Stop: 06/07/19 18:27 Last Admin: 06/07/19 19:22 Dose: 125 mg Documented by: JUAN Morphine Sulfate (Morphine) 4 mg IV NOW ONE Stop: 06/07/19 19:28 Last Admin: 06/07/19 20:04 Dose: 4 mg Documented by: TEODORA Ondansetron HCl (Zofran) 4 mg IV NOW ONE Stop: 06/07/19 19:28 Last Admin: 06/07/19 20:04 Dose: 4 mg Documented by: TEODORA Vital Signs Vital signs: Vital Signs - 8 hr 06/07/19 20:37 06/07/19 21:06 Pulse Rate 91 H 91 H Respiratory Rate 25 H 23 Blood Pressure [Left Arm] 135/68 125/76 Pulse Oximetry 96 95 MDM - SOB/Dyspnea <Frank MINI [place] - Last Filed: 06/07/19 21:39> Differential Diagnosis Differential diagnosis: Likely acute exacerbation of chronic obstructive airways disease, congestive heart failure, community acquired pneumonia and other (Flu, viral illness) Medical Records Attestation: I reviewed the patient's medical records. Lab Data Attestation: I reviewed the patient's lab results. Result diagrams: 06/07/19 19:05 06/07/19 19:05 Labs: Lab Results 06/07/19 06/07/19 06/07/19 Range/Units 19:05 19:05 19:05 WBC 8.4 (4.5-11.0) X10^3/uL RBC 4.74 (4.0-5.2) X10^6/uL Hgb 15.2 (12.0-16.0) g/dL Hct 44.0 (36-46) % MCV 92.8 (80-100) fL MCH 32.0 (26-34) PG MCHC 34.5 (30-36) % RDW 14.1 (11.6-14.8) % Plt Count 165 (150-400) X10^3/uL Neut % (Auto) 61.3 (50-75) % Lymph % (Auto) 26.3 (25-40) % Mcmullen % (Auto) 7.7 (3-14) % Eos % (Auto) 4.0 (2-4) % Baso % (Auto) 0.7 (0-2) % Neut # (Auto) 5100 (8028-2899) /uL Lymph # (Auto) 2200 (8098-5480) /uL Mcmullen # (Auto) 600 (0-900) /uL Eos # (Auto) 300 (0-450) /uL Baso # (Auto) 100 (0-100) /uL Sodium (137-145) mmol/L Potassium (3.4-5.1) mmol/L Chloride (98-107) mmol/L Carbon Dioxide (22-32) mmol/L BUN (7-17) mg/dL Creatinine (0.52-1.04) mg/dL Estimated GFR (>60) mL/min BUN/Creatinine Ratio (6-22) Glucose (70-100) mg/dL Lactate 1.7 (0.7-2.1) mmol/L Calcium (8.4-10.2) mg/dL Magnesium 1.9 (1.6-2.3) mg/dL Total Bilirubin (0.2-1.3) mg/dL AST (14-36) IU/L ALT (<35) IU/L Alkaline Phosphatase (38-126) U/L Total Creatine Kinase 76 (30-135) U/L CK-MB (CK-2) TNP CK-MB (CK-2) Rel Index TNP Troponin I < 0.012 (0.01-0.034) ng/mL NT-Pro-B Natriuret Pep 73 (<125) pg/mL Total Protein (6.3-8.2) g/dL Albumin (3.5-5.0) g/dL Globulin (1.7-4.1) g/dL Albumin/Globulin Ratio (1.0-2.8) Lipase (23-300) U/L Chlamy pneumoniae PCR (Not Detect) Adenovirus (PCR) (Not Detect) B.parapertussis DNA PCR (Not Detect) Coronavirus OC43 (PCR) (Not Detect) Coronavirus HKU1 (PCR) (Not Detect) Coronavirus 229E (PCR) (Not Detect) Coronavirus NL63 (PCR) (Not Detect) Human Metapneumovir PCR (Not Detect) Influenza Type A (PCR) (Not Detect) Influenza Type B (PCR) (Not Detect) M. pneumoniae (PCR) (Not Detect) Parainfluenza 1 (PCR) (Not Detect) Parainfluenza 2 (PCR) (Not Detect) Parainfluenza 3 (PCR) (Not Detect) Parainfluenza 4 (PCR) (Not Detect) RSV (PCR) (Not Detect) Entero/Rhino (PCR) (Not Detect) 06/07/19 06/07/19 06/07/19 Range/Units 19:05 19:05 19:10 WBC (4.5-11.0) X10^3/uL RBC (4.0-5.2) X10^6/uL Hgb (12.0-16.0) g/dL Hct (36-46) % MCV (80-100) fL MCH (26-34) PG MCHC (30-36) % RDW (11.6-14.8) % Plt Count (150-400) X10^3/uL Neut % (Auto) (50-75) % Lymph % (Auto) (25-40) % Mcmullen % (Auto) (3-14) % Eos % (Auto) (2-4) % Baso % (Auto) (0-2) % Neut # (Auto) (4072-2019) /uL Lymph # (Auto) (2148-7160) /uL Mcmullen # (Auto) (0-900) /uL Eos # (Auto) (0-450) /uL Baso # (Auto) (0-100) /uL Sodium 140 (137-145) mmol/L Potassium 3.4 (3.4-5.1) mmol/L Chloride 99 (98-107) mmol/L Carbon Dioxide 34 H (22-32) mmol/L BUN 12 (7-17) mg/dL Creatinine 0.60 (0.52-1.04) mg/dL Estimated GFR > 60.0 (>60) mL/min BUN/Creatinine Ratio 20.0 (6-22) Glucose 109 H (70-100) mg/dL Lactate (0.7-2.1) mmol/L Calcium 9.3 (8.4-10.2) mg/dL Magnesium (1.6-2.3) mg/dL Total Bilirubin 0.5 (0.2-1.3) mg/dL AST 61 H (14-36) IU/L ALT 64 H (<35) IU/L Alkaline Phosphatase 93 (38-126) U/L Total Creatine Kinase (30-135) U/L CK-MB (CK-2) CK-MB (CK-2) Rel Index Troponin I (0.01-0.034) ng/mL NT-Pro-B Natriuret Pep (<125) pg/mL Total Protein 7.5 (6.3-8.2) g/dL Albumin 4.0 (3.5-5.0) g/dL Globulin 3.5 (1.7-4.1) g/dL Albumin/Globulin Ratio 1.1 (1.0-2.8) Lipase 66 (23-300) U/L Chlamy pneumoniae PCR Not detected (Not Detect) Adenovirus (PCR) Not detected (Not Detect) B.parapertussis DNA PCR Not detected (Not Detect) Coronavirus OC43 (PCR) Not detected (Not Detect) Coronavirus HKU1 (PCR) Not detected (Not Detect) Coronavirus 229E (PCR) Not detected (Not Detect) Coronavirus NL63 (PCR) Not detected (Not Detect) Human Metapneumovir PCR Not detected (Not Detect) Influenza Type A (PCR) Not detected (Not Detect) Influenza Type B (PCR) Not detected (Not Detect) M. pneumoniae (PCR) Not detected (Not Detect) Parainfluenza 1 (PCR) Not detected (Not Detect) Parainfluenza 2 (PCR) Not detected (Not Detect) Parainfluenza 3 (PCR) Not detected (Not Detect) Parainfluenza 4 (PCR) Not detected (Not Detect) RSV (PCR) Not detected (Not Detect) Entero/Rhino (PCR) Detected H (Not Detect) Imaging Data Chest x-ray: Radiologist's Impression: [address] [address] XRay Report Signed Patient: Alyse Martin RMR#: [id number] : 1975Acct:[id number] Age/Sex: 44 / FDate of Service: 06/07/19 Loc: ED Accession Number: [id number] Procedure: XR chest 2V Ordering Provider: Frank Spain PROCEDURE: XR CHEST 2V INDICATIONS: cough, chest pain, hx of COPD TECHNIQUE: 2 views of the chest were acquired. COMPARISON: [facility], CR, XR CHEST 1V, 04/22/2019, 11:48. FINDINGS: Surgical changes and devices: None. Lungs and pleura: Lungs are clear. No pleural effusions or pneumothorax. Mediastinum: Mediastinal contours are normal. Heart size is normal. Bones and chest wall: No suspicious bony abnormalities. Soft tissues appear unremarkable. IMPRESSION: Normal chest. Dictated by: Aby Olivarez M.D. on 06/07/2019 at 20:08 Approved by: Aby Olivarez M.D. on 06/07/2019 at 20:08 ECG Data Attestation: I personally reviewed and interpreted this ECG as follows: Prior ECG tracings: available for review Interpretation: SR rate at 93. DE interval 159, QRS duration 89, QT/QTC 358/[address] elevation or depression. No significant changes from previous EKGs. MDM Narrative Medical decision making narrative: This is a 44 year old female with history of COPD, emphysema who is current smoker and uses O2 on 4 L by nasal cannula throughout the day. Lung sounds were decreased with faint wheeze throughout the lung parrish. There is no increased work of breathing or respiratory distress appreciated but patient had frequent nonproductive cough. Patient complaining of bilateral lower chest wall discomfort and pain around the ribs. EKG was normal sinus rhythm without ST elevation or depression. Chest x-ray does not show acute findings today. Cardiac enzymes were negative along BNP. Patient has been afebrile while in ED. there is no leukocytosis and lactate was normal. Respiratory panel came back with positive rhino virus which patient mention she had exposed to her grandson was ill with cold symptoms. Patient has chronically elevated AST and ALT should be followed up by PCP. Patient was medicated with Solu-Medrol 125 mg IV. Patient was hydrated with normal saline 500 mL. Medicated with morphine and Zofran for discomfort and nausea. Patient discharged to home with guaifenesin with codeine elix for coughing spells. Patient states Tessalon per was not helpful in the past. Patient discharged to home with short burst course of prednisone. Her COPD and current symptoms are likely be exacerbated by rhino virus. Patient's symptoms has been improved after the treatment with improved vital signs, lung sounds, and decrease cough. Patient advised supportive care and monitor for worsening symptoms and to follow up with PCP in 2-3 days. Strict return precautions were discussed with the patient. Patient is not empirically treated with antibiotic medication at this time. Patient verbalized understanding and agrees with the treatment plan. <Octavio Nance DO - Last Filed: 06/08/19 03:29> Lab Data Labs: Lab Results 06/07/19 06/07/19 06/07/19 Range/Units 19:05 19:05 19:05 WBC 8.4 (4.5-11.0) X10^3/uL RBC 4.74 (4.0-5.2) X10^6/uL Hgb 15.2 (12.0-16.0) g/dL Hct 44.0 (36-46) % MCV 92.8 (80-100) fL MCH 32.0 (26-34) PG MCHC 34.5 (30-36) % RDW 14.1 (11.6-14.8) % Plt Count 165 (150-400) X10^3/uL Neut % (Auto) 61.3 (50-75) % Lymph % (Auto) 26.3 (25-40) % Mcmullen % (Auto) 7.7 (3-14) % Eos % (Auto) 4.0 (2-4) % Baso % (Auto) 0.7 (0-2) % Neut # (Auto) 5100 (9415-2182) /uL Lymph # (Auto) 2200 (8029-8495) /uL Mcmullen # (Auto) 600 (0-900) /uL Eos # (Auto) 300 (0-450) /uL Baso # (Auto) 100 (0-100) /uL Sodium (137-145) mmol/L Potassium (3.4-5.1) mmol/L Chloride (98-107) mmol/L Carbon Dioxide (22-32) mmol/L BUN (7-17) mg/dL Creatinine (0.52-1.04) mg/dL Estimated GFR (>60) mL/min BUN/Creatinine Ratio (6-22) Glucose (70-100) mg/dL Lactate 1.7 (0.7-2.1) mmol/L Calcium (8.4-10.2) mg/dL Magnesium 1.9 (1.6-2.3) mg/dL Total Bilirubin (0.2-1.3) mg/dL AST (14-36) IU/L ALT (<35) IU/L Alkaline Phosphatase (38-126) U/L Total Creatine Kinase 76 (30-135) U/L CK-MB (CK-2) TNP CK-MB (CK-2) Rel Index TNP Troponin I < 0.012 (0.01-0.034) ng/mL NT-Pro-B Natriuret Pep 73 (<125) pg/mL Total Protein (6.3-8.2) g/dL Albumin (3.5-5.0) g/dL Globulin (1.7-4.1) g/dL Albumin/Globulin Ratio (1.0-2.8) Lipase (23-300) U/L Chlamy pneumoniae PCR (Not Detect) Adenovirus (PCR) (Not Detect) B.parapertussis DNA PCR (Not Detect) Coronavirus OC43 (PCR) (Not Detect) Coronavirus HKU1 (PCR) (Not Detect) Coronavirus 229E (PCR) (Not Detect) Coronavirus NL63 (PCR) (Not Detect) Human Metapneumovir PCR (Not Detect) Influenza Type A (PCR) (Not Detect) Influenza Type B (PCR) (Not Detect) M. pneumoniae (PCR) (Not Detect) Parainfluenza 1 (PCR) (Not Detect) Parainfluenza 2 (PCR) (Not Detect) Parainfluenza 3 (PCR) (Not Detect) Parainfluenza 4 (PCR) (Not Detect) RSV (PCR) (Not Detect) Entero/Rhino (PCR) (Not Detect) 06/07/19 06/07/19 06/07/19 Range/Units 19:05 19:05 19:10 WBC (4.5-11.0) X10^3/uL RBC (4.0-5.2) X10^6/uL Hgb (12.0-16.0) g/dL Hct (36-46) % MCV (80-100) fL MCH (26-34) PG MCHC (30-36) % RDW (11.6-14.8) % Plt Count (150-400) X10^3/uL Neut % (Auto) (50-75) % Lymph % (Auto) (25-40) % Mcmullen % (Auto) (3-14) % Eos % (Auto) (2-4) % Baso % (Auto) (0-2) % Neut # (Auto) (0508-6014) /uL Lymph # (Auto) (0619-7356) /uL Mcmullen # (Auto) (0-900) /uL Eos # (Auto) (0-450) /uL Baso # (Auto) (0-100) /uL Sodium 140 (137-145) mmol/L Potassium 3.4 (3.4-5.1) mmol/L Chloride 99 (98-107) mmol/L Carbon Dioxide 34 H (22-32) mmol/L BUN 12 (7-17) mg/dL Creatinine 0.60 (0.52-1.04) mg/dL Estimated GFR > 60.0 (>60) mL/min BUN/Creatinine Ratio 20.0 (6-22) Glucose 109 H (70-100) mg/dL Lactate (0.7-2.1) mmol/L Calcium 9.3 (8.4-10.2) mg/dL Magnesium (1.6-2.3) mg/dL Total Bilirubin 0.5 (0.2-1.3) mg/dL AST 61 H (14-36) IU/L ALT 64 H (<35) IU/L Alkaline Phosphatase 93 (38-126) U/L Total Creatine Kinase (30-135) U/L CK-MB (CK-2) CK-MB (CK-2) Rel Index Troponin I (0.01-0.034) ng/mL NT-Pro-B Natriuret Pep (<125) pg/mL Total Protein 7.5 (6.3-8.2) g/dL Albumin 4.0 (3.5-5.0) g/dL Globulin 3.5 (1.7-4.1) g/dL Albumin/Globulin Ratio 1.1 (1.0-2.8) Lipase 66 (23-300) U/L Chlamy pneumoniae PCR Not detected (Not Detect) Adenovirus (PCR) Not detected (Not Detect) B.parapertussis DNA PCR Not detected (Not Detect) Coronavirus OC43 (PCR) Not detected (Not Detect) Coronavirus HKU1 (PCR) Not detected (Not Detect) Coronavirus 229E (PCR) Not detected (Not Detect) Coronavirus NL63 (PCR) Not detected (Not Detect) Human Metapneumovir PCR Not detected (Not Detect) Influenza Type A (PCR) Not detected (Not Detect) Influenza Type B (PCR) Not detected (Not Detect) M. pneumoniae (PCR) Not detected (Not Detect) Parainfluenza 1 (PCR) Not detected (Not Detect) Parainfluenza 2 (PCR) Not detected (Not Detect) Parainfluenza 3 (PCR) Not detected (Not Detect) Parainfluenza 4 (PCR) Not detected (Not Detect) RSV (PCR) Not detected (Not Detect) Entero/Rhino (PCR) Detected H (Not Detect) Discharge Plan Departure Patient Disposition: Home Clinical Impression: COPD exacerbation Discharge Date/Time: 06/07/19 21:18 Instructions: DI for Chronic Obstructive Pulmonary Disease Activity Restrictions/Additional Instructions: You have been diagnosed with [COPD exacerbation. Chest x-ray does not show acute findings such as pneumonia. There is no increase in white count and lactate was negative. Cardiac enzymes were negative and BNP also was negative today. EKG looked normal. You have mildly increase in liver function tests with normal lipase which should be followed by your PCP in the future. Respiratory panel came back with positive Rhino virus. You were hydrated with normal saline, treated with nebulizer treatment and IV Solu-Medrol, IV morphine and Zofran. Her vital signs been stable]. What to do: *Take your medications as directed. Please start prednisone tomorrow for next 5 days. Please take codeine with guaifenesin 7.5 mL for coughing spells. Codeine is a narcotic medication so please take precaution for drowsiness. Cough medication has been transmitted to [facility] [place]. *Follow up with your primary care provider in 2-3 days, call for an appointment. Let them know you were seen in the ED and that we asked you to be seen in follow up. *Return to ED if you have any new, worsening, or concerning symptoms, such as [chest pain, breathing difficulty, unable to tolerate fluids, high fever, or any acute concerns]. Prescriptions: New prednisone 20 mg tablet 40 mg PO DAILY 5 Days RF: 0 codeine-guaifenesin 7.5-225 mg/5 mL liquid 7.5 ml PO Q6H MDD 45 ml / 24 hrs PRN (Reason: cough) Qty: 473 RF: 0 No Action alprazolam [Xanax] 1 mg tablet 1 mg PO TID PRN (Reason: Anxiety) RF: 0 albuterol sulfate [ProAir HFA] 90 mcg/actuation Hfa Aerosol Inhaler 1 - 2 puff INHALATION Q4-6H PRN (Reason: shortness of breath) RF: 0 Spiriva with HandiHaler 18 mcg Capsule, W/Inhalation Device 1 cap INHALATION DAILY RF: 0 iwhuosogvc-[id number] 50-300-40 mg capsule 1 tab PO Q4H PRN (Reason: Migraine Headache) RF: 0 ipratropium-albuterol 0.5 mg-3 mg(2.5 mg base)/3 mL solution for nebulization 3 ml Inhalation Q6H PRN (Reason: Cough) RF: 0 olanzapine 10 mg tablet 15 mg PO DAILY RF: 0 loratadine 10 mg tablet 10 mg PO DAILY RF: 0 esomeprazole magnesium 20 mg capsule,delayed release(DR/EC) 20 mg PO DAILY RF: 0 buspirone 15 mg tablet 15 mg PO TID RF: 0 hydrochlorothiazide 25 mg tablet 25 mg PO DAILY RF: 0 metformin 500 mg tablet extended release 24 hr 500 mg PO DAILY RF: 0 Dulera 200-5 mcg/actuation HFA aerosol inhaler 2 puff inhalation DAILY RF: 0
== END 2019-06-07 21:18 | disposition home or self-care (01) ==
PROVIDERS: Emergency Provider Nurse Practitioner Family
DX: J44.1 Chronic obstructive pulmonary disease with (acute) exacerbation (principal); R07.9 Chest pain, unspecified
CPT/HCPCS: 36415; 71046; 80053; 82550; 83605; 83690; 83735; 83880; 84484; 85025; 87633; 93005; 94640; 96374; 96375; 99285; J2270; J2405; J2930; J7613